=== PATIENT | female | born 1935 | race Caucasian/White ===

== ENCOUNTER 2016-06-25 07:57 | Inpatient (IN) | payer BC, OTHER ==
[2016-05-21 14:15] VITALS: BMI 25.0
--- NOTE | 2016-05-21 15:02 | PAT Medication Instructions ---
Service Date May 21, 2016. Current Home Medication List Atorvastatin (Lipitor), 20 MG PO QPM Dorzolamide HCl (Dorzolamide HCl), 1 DROP OPB BID Lansoprazole (Prevacid), 30 MG PO QAM Lisinopril (Prinivil), 20 MG PO QAM Multivitamin (Multivitamin), 1 TAB PO QAM Oxycodone/Acetaminophen 5MG/325MG (Oxycodone/Acetaminophen 5MG/325MG), 1 TABLET PO Q6H PRN for HEADACHE Probiotic Product (Probiotic), 1 CAP PO QAM Temazepam (Restoril), 2 TAB PO HS Travoprost (Travatan Z), 1 DROP OPB HS [Lysine], 1 TAB PO QAM Medication Instructions For Your Scheduled Surgery - Hold the following medications the morning of surgery: Lisinopril (Prinivil), 20 MG PO QAM [Lysine], 1 TAB PO QAM Multivitamin (Multivitamin), 1 TAB PO QAM Probiotic Product (Probiotic), 1 CAP PO QAM - Take the following medications the morning of surgery with a sip of water: Dorzolamide HCl (Dorzolamide HCl), 1 DROP OPB BID Lansoprazole (Prevacid), 30 MG PO QAM Oxycodone/Acetaminophen 5MG/325MG (Oxycodone/Acetaminophen 5MG/325MG), 1 TABLET PO Q6H PRN for HEADACHE (okay to take up to 4 hours prior to surgery if needed) - Take the following medications as scheduled the night before surgery: Dorzolamide HCl (Dorzolamide HCl), 1 DROP OPB BID Travoprost (Travatan Z), 1 DROP OPB HS Temazepam (Restoril), 2 TAB PO HS Oxycodone/Acetaminophen 5MG/325MG (Oxycodone/Acetaminophen 5MG/325MG), 1 TABLET PO Q6H PRN for HEADACHE Atorvastatin (Lipitor), 20 MG PO QPM If you have any questions please call us at [phone] (Dawn Tabor PA-C ) or [phone] or [phone]
--- NOTE | 2016-05-21 15:36 | DIAGNOSTIC IMAGING REPORT ---
CHEST 2 VIEWS ROUTINE CLINICAL HISTORY: PAT preoperative evaluation COMPARISON STUDY: No previous studies for comparison. FINDINGS: The bones soft tissues and hemidiaphragms are normal. The cardiomediastinal silhouette is normal. The lungs are clear. The pulmonary vasculature is normal. IMPRESSION: Negative chest. Electronically signed by: Jovi Rojas M.D. 05/21/2016 3:34 PM
[2016-05-21 16:05] LABS: BASO % 0.6 %; BASO ABS # 0.04 K/uL (0-0.2); COMPLETE YES; EOS % 1.6 %; HEMATOCRIT 41.3 % (37-47); IG% 0.4 %; LYMPH % 41.2 %; LYMPH ABS # 2.83 K/uL (1.2-3.4); MEAN CELL VOLUME 97.4 fL (80-100); MEAN CORPUSCULAR HEMOGLOBIN 32.1 pg (25-34); MEAN CORPUSCULAR HGB CONC 32.9 g/dl (32-36); MEAN PLATELET VOLUME 9.9 fL (7.4-10.4); MONO % 8.4 %; NEUT % 47.8 %; PLATELET COUNT 251 K/uL (130-400); RED BLOOD COUNT 4.24 M/uL (4.2-5.4); WHITE BLOOD COUNT 6.87 K/uL (4.8-10.8)
[2016-05-21 16:23] LABS: INR 0.9 (0.9-1.1); PARTIAL THROMBOPLASTIN RATIO 0.9; PROTHROMBIN TIME (PATIENT) 9.9 SECONDS (9.0-12.0)
[2016-05-21 16:26] LABS: URINE APPEARANCE CLEAR (CLEAR); URINE BILIRUBIN NEG (NEG); URINE COLOR YELLOW; URINE EPITHELIAL CELL AUTO >30 /lpf (0-5); URINE NITRITE NEG (NEG); URINE PH 5.5 (4.5-7.5); UROBILINOGEN NEG (NEG)
[2016-05-21 16:27] LABS: MANUAL MICROSCOPIC REQUIRED? NO; REVIEW REQ? NO
[2016-05-21 16:49] LABS: BUN/CREATININE RATIO 19.1 (10-20); CREATININE 0.93 mg/dl (0.60-1.20)
[2016-05-21 17:35] LABS: CALCIUM 10.2 mg/dl (8.5-10.1)
--- NOTE | 2016-06-24 16:38 | HISTORY & PHYSICAL EXAMINATION ---
DATE OF ADMISSION: 06/25/2016 CHIEF COMPLAINT: Osteoarthritis of the left shoulder. HISTORY OF PRESENT ILLNESS: Salena is a very pleasant 80-year-old female who fell about 3 months ago sustaining an injury to her left shoulder. We have been treating her conservatively and finally an MRI showed actually bjimzqlm-ub-lmyets arthritis and a questionable small rotator cuff tear. Her biggest complaints are grinding in her shoulder. She failed multiple injections, but was still having a lot of pain and elected to proceed with a total shoulder arthroplasty. PAST MEDICAL HISTORY: Significant for hyperlipidemia, hypertension, glaucoma and GERD. MEDICATIONS: Include lisinopril 20 mg daily, Restoril 15 mg 2 at night, Travatan drops for glaucoma, dorzolamide drops for glaucoma, Lipitor 20 mg daily, Prevacid 30 mg daily, lysine 500 mg daily, daily multivitamin, daily probiotic, and oxycodone as needed for pain. PAST SURGICAL HISTORY: She denies. ALLERGIES: PENICILLIN. FAMILY HISTORY: Noncontributory. SOCIAL HISTORY: She is . She rarely drinks. She does not use any tobacco. She is moderately active. REVIEW OF SYSTEMS: She complains of left shoulder pain. All other pertinent review of systems are negative. PHYSICAL EXAMINATION: GENERAL: She is awake, alert and oriented x3. She is in no apparent distress. She is very pleasant. HEENT: Pupils equal, round and reactive to light. Extraocular motions intact. Oral mucosa is pink and moist. VITAL SIGNS: Regular rate per radial pulse. LUNGS: Cassi symmetrically bilaterally with no audible breath sounds. ABDOMEN: Soft, nontender, nondistended. MUSCULOSKELETAL: On physical examination of the left arm, she has very painful range of motion. She has positive Neer and Thorne impingement signs and pain over the subacromial space, but she has a lot of crepitus with range of motion of her shoulder. Most of her pain is actually located over the anterior glenohumeral joint line. IMAGING: MRI of the shoulder does show oqviunaf-vk-djsjov osteoarthritis with a small far anterior rotator cuff tear. IMPRESSION: Tnxqkhpz-ar-bmvdpa osteoarthritis of the left shoulder. PLAN: We will proceed with a Biomet comprehensive left total shoulder arthroplasty. Postoperatively, she will be placed in an arm sling and kept overnight at the hospital for postoperative medical management.
[2016-06-25] VITALS (9 sets, daily range): BP systolic 120–198; BP diastolic 52–76; PULSE 60–70; TEMP 36.3–36.5; O2SAT 95–100; Ht 157.5 cm; Wt 63.2 kg
[~2016-06-25] VITALS: Ht 157.5 cm; Wt 63.2 kg
[~2016-06-25 07:57] MED LIST: ACETAMINOPHEN 500 MG TAB PO SCH; ATOR-22 PO; BUPIVACAINE 0.5 % 5 MG/1 ML PF 10ML VIAL ONE; DEXAMETHASONE SOD INJ 4 MG/ML VIAL ONE; FAMOTIDINE 20 MG TAB PO SCH; GABAPENTIN 300 MG CAP PO SCH; LACTATED RINGER'S 1000ML IV SCH; LANS30CA63 PO; LISI20TA3 PO; LYSINE PO; MISCCAP80 PO; MULT-506 PO; OXYC-643 PO; ROPIVACAINE 5MG/ML 30 ML 150 MG, BUPIVACAINE/EPINEPHR 0.5% MPF 30 ML, KETOROLAC TROMETH... INFIL SCH; TEMA15CA4 PO; TRAV0.00 OPB; TRSOPS2 OPB; VANCOMYCIN INJ 950 MG in SODIUM CHLORIDE 0.9% 250ML 250 ML IV SCH
[2016-06-25] MEDS: TRANEXAMIC ACID INJ 1,000 MG in SODIUM CHLORIDE 0.9% 100ML 100 ML IV SCH ×2 (09:02→14:08)
[2016-06-25] MEDS ORDERED: MIDAZOLAM HCL 1 MG/ML 2ML VIAL ONE (09:32)
[2016-06-25] MEDS ORDERED: FENTANYL CITRATE INJ 50 MCG/1 ML 2 ML VIAL ONE (09:32)
[2016-06-25] MEDS ORDERED: LIDOCAINE HCL 2% 2 ML VIAL (20MG/ML) ONE (09:32)
[2016-06-25] MEDS ORDERED: GLYCOPYRROLATE INJ 0.2 MG/ML VIAL ONE ×2 (09:32→12:20)
[2016-06-25] MEDS ORDERED: PROPOFOL IV EMULSION 10 MG/ML 20 ML VIAL IV ONE (09:32)
[2016-06-25] MEDS ORDERED: DEXAMETHASONE SOD INJ 4 MG/ML VIAL ONE (09:32)
[2016-06-25] MEDS ORDERED: NEOSTIGMINE METHYLSULFATE 5 MG/5 ML SYR ONE (09:32)
[2016-06-25] MEDS ORDERED: ONDANSETRON INJ 2 MG/ML 2 ML VIAL ONE ×2 (09:32→12:45)
[2016-06-25] MEDS ORDERED: LACTATED RINGER'S 1000ML 1,000 ML IV PRN (10:20)
--- NOTE | 2016-06-25 10:23 | History & Physical Bridge Note ---
H&P Re-Evaluation Bridge Note: I have examined the patient, reviewed the History & Physical and in the interval since the performance of the History & Physical I have noted the following changes of clinical significance: No changes noted
[2016-06-25] MEDS ORDERED: ONDANSETRON INJ 2 MG/ML 2 ML VIAL IV PRN ×2 (10:30→12:45)
[2016-06-25] MEDS ORDERED: FENTANYL CITRATE INJ 50 MCG/1 ML 2 ML VIAL IV PRN (10:30)
[2016-06-25] MEDS ORDERED: ORTHO JOINT ANESTHETIC ONE (10:46)
[2016-06-25] MEDS ORDERED: EpHEDrine SULFATE INJ 50 MG/ML AMP ONE (11:44)
[2016-06-25] MEDS ORDERED: PHENYLEPHRINE HCL INJ 10 MG/ML VIAL ONE (11:44)
[2016-06-25] MEDS ORDERED: BACITRACIN 50000 UNIT VIAL IR ONE (12:04)
--- NOTE | 2016-06-25 12:35 | [facility] Post Operative Brief Note ---
Immediate Operative Summary Operative Date Jun 25, 2016. Pre-Operative Diagnosis : Gjdrxiyo-xw-ynmujc osteoarthritis of the left shoulder Post-Operative Diagnosis : Fikiwqol-dd-rxdglt osteoarthritis of the left shoulder with rotator cuff tear Procedure(s) Performed Reverse Left Total Shoulder Arthroplasty Surgeon Dr. Leonardo Brewster Dethistler Operator Surgeon(s) Holland Lazo PA-C Estimated Blood Loss 250 mL Findings as above Specimens A. Humeral Head Complication(s) None Disposition Recovery Room / PACU
[2016-06-25] MEDS ORDERED: METOCLOPRAMIDE HCL INJ 5 MG/ML 2 ML VIAL IV PRN (12:45)
[2016-06-25] MEDS ORDERED: OXYCODONE HCL IR 5 MG TAB (IMMEDIATE RELEASE) PO PRN (12:45)
[2016-06-25] MEDS ORDERED: BISACODYL 10 MG SUPP PR PRN (12:45)
[2016-06-25] MEDS ORDERED: MAGNESIUM HYDROXIDE SUSP 30 ML UDC PO PRN (12:45)
[2016-06-25] MEDS ORDERED: NALOXONE HCL 0.4 MG/1 ML VIAL/CARP IV PRN (12:45)
[2016-06-25] MEDS ORDERED: SOD PHOSPHATE/SOD BIPHOSPHATE ENEMA 132 ML BTL PR PRN (12:45)
[2016-06-25] MEDS ORDERED: MoRPHine SULFATE 2 MG/ML CARP IV PRN (12:45)
--- NOTE | 2016-06-25 13:05 | Anesthesiology Progress Note ---
Anesthesia Post Op Note Date & Time Jun 25, 2016 at 13:04 Vital Signs Pain Intensity: 0 Vital Signs Past 12 Hours Date Time Temp Pulse Resp B/P Pulse Ox O2 Delivery O2 Flow Rate FiO2 06/25/16 12:55 73 18 149/54 100 Mask 10 06/25/16 12:51 36.0 80 18 157/81 100 Mask 10 06/25/16 08:35 36.5 67 18 198/73 97 Room Air Notes Mental Status: alert / awake / arousable, participated in evaluation Pt Amnestic to Procedure: Yes Nausea / Vomiting: adequately controlled Pain: adequately controlled Airway Patency, RR, SpO2: stable & adequate BP & HR: stable & adequate Hydration State: stable & adequate Anesthetic Complications: no major complications apparent Pt drowsy but responsive and doing well. No pain.
--- NOTE | 2016-06-25 13:14 | OPERATIVE REPORT ---
DATE OF OPERATION: 06/25/2016 PREOPERATIVE DIAGNOSIS: Primary osteoarthritis of the left shoulder with possible small rotator cuff tear. POSTOPERATIVE DIAGNOSIS: Advanced osteoarthritis of left shoulder with large left rotator cuff tear. PROCEDURE: Left reverse total shoulder arthroplasty. SURGEON: Dr. Leonardo Brewster. ORACLE ADF DEVELOPER: Holland Lazo PA-C, whose assistance was necessary for positioning the arm and helping with instrumentation. ANESTHESIA: General with a left interscalene nerve block. COMPLICATIONS: None. CONDITION: Stable to PACU. IMPLANTS USED: I used a Biomet comprehensive reverse left total shoulder arthroplasty with a size 25 mm mini baseplate, a 35 mm central screw, 2 peripheral locking screws, a 36 mm eccentric glenosphere, a size 9 press-fit humeral stem, a standard humeral tray and a standard humeral bearing. No cement was used during the case. INDICATIONS: Salena is a pleasant 80-year-old female who presented to my office with chronic left shoulder pain. She says she did have a lot of grinding in her shoulder. X-rays did not look too bad but MRI showed advanced arthritis and a questionable small cuff tear. She elected to undergo a total shoulder arthroplasty with possible reverse. She understood the risks, benefits, alternatives to the procedure. PROCEDURE IN DETAIL: On 06/25/2016, she arrived at [facility] for the above procedure. She was seen in the preoperative holding area and the operative extremity was identified and signed. She was then given a preoperative antibiotic and a left interscalene nerve block. She was taken back to the operating room, laid on the table in supine position and put under general anesthesia. She was then put into the beach chair position. The left shoulder was prepped and draped in sterile fashion. Time-out was done and the patient and operative extremity was properly identified. A deltopectoral approach was used. Dissection was taken down through the fascia and the anterior shoulder was exposed. The long head of the biceps tendon was tenodesed to the upper border of the pec major and the subscapularis was tenotomized with a centimeter of cuff tissue remaining. There was a large rotator cuff tear involving the majority of the supraspinatus. With blunt dissection, I was easily able to tear the rotator cuff much larger. It was very poor tissue quality. Given the poor quality of the supraspinatus and the tear, I felt she would best be treated with reverse shoulder arthroplasty. The humeral head was then exposed. Sequential reaming up to a size 9 reamer was done. Off that reamer, a proximal humeral resection guide was placed and the humerus was resected at 135 degrees of inclination and 20 degrees of retroversion. The glenoid was then exposed. Time was spent doing a complete circumferential capsular and labral release. The ponUp signature guide was snapped on to the anterior glenoid and a guide pin was placed for a reverse total shoulder arthroplasty hole. The 25 mm mini base plate was then reamed and the final baseplate was impacted into place. A 35 mm x 6.5 mm central screw was placed, followed by a superior and inferior locking screw. This gave excellent fixation. A 36 mm eccentric glenosphere was then impacted into place. The proximal humerus was then exposed. Sequential broaching up to a size 9 broach was done. A standard humeral trial was placed. The shoulder was reduced, brought through a full range of motion and felt to be stable. The broach was removed. The final size 9 humeral stem was impacted into place. The humeral bearing was snapped onto the humeral tray and the ring lock mechanism was engaged. The humeral tray was then placed onto the humeral stem and the shoulder was reduced. The entire joint was then irrigated with 3 liters of normal saline solution with bacitracin. Surrounding soft tissues were then injected with 100 mL of an orthopedic pain control cocktail. The subscapularis was then tenodesed back to the lesser tuberosity with transosseous FiberWire sutures and uynb-os-jkgm sutures. A drain was placed. Skin was closed with 2-0 Vicryl and a 3-0 V-Loc suture. A Prineo dressing was placed. She was then placed in a regular arm sling, extubated, transferred to a [facility] and taken to the postanesthesia care unit in stable condition. She tolerated the procedure well. I attest to the content of the Intraoperative Record and any orders documented therein. Any exceptio ns are noted below.
--- NOTE | 2016-06-25 13:19 | DIAGNOSTIC IMAGING REPORT ---
LEFT SHOULDER MIN 2 VIEWS ROUTINE CLINICAL HISTORY: Postop examination COMPARISON: None. DISCUSSION: There are postsurgical changes of a reverse total left shoulder arthroplasty. There is an overlying surgical drain. No dislocation is visualized. There are left basilar atelectatic changes. IMPRESSION: Postsurgical changes of a reverse total left shoulder arthroplasty. No dislocation. Electronically signed by: Moisés Hui M.D. 06/25/2016 1:17 PM Dictated Date/Time: 06/25/2016 1:17 PM
[2016-06-25] MEDS ORDERED: D5W AND 1/2NSS + 20MEQ KCL 1,000 ML IV SCH (15:00)
[2016-06-25] MEDS ORDERED: KETOROLAC TROMETHAMINE 30 MG/ML VIAL IV. SCH (16:00)
[2016-06-25] MEDS ORDERED: NURSING VERBAL MED ORDER ONE (17:30)
[2016-06-25] MEDS: KETOROLAC TROMETHAMINE 15 MG/ML VIAL IV. SCH ×2 (18:54→21:03)
[2016-06-25] MEDS: ACETAMINOPHEN IV 1,000 MG in EMPTY BAG 0 ML IV SCH ×2 (18:55→21:32)
[2016-06-25] MEDS: DORZOLAMIDE HCL 2% OPH SOLN 10 ML BTL OPB SCH ×2 (21:00→21:03)
[2016-06-25] MEDS ORDERED: ATORVASTATIN 20 MG TAB PO SCH (21:00)
[2016-06-25] MEDS ORDERED: TRAVOPROST Z 0.004% OPH SOLN 2.5 ML BTL OPB SCH (21:00)
[2016-06-25] MEDS ORDERED: SENNA 8.6 MG TAB PO SCH (21:00)
[2016-06-25] MEDS: DOCUSATE SODIUM 100 MG CAP PO SCH (21:04)
[2016-06-25] MEDS: TEMAZEPAM 15 MG CAP PO SCH ×2 (21:06→21:31)
[2016-06-25] MEDS ORDERED: VANCOMYCIN INJ 950 MG in SODIUM CHLORIDE 0.9% 250ML 250 ML IV SCH (23:00)
[2016-06-26] MEDS: KETOROLAC TROMETHAMINE 15 MG/ML VIAL IV. SCH ×2 (02:42→09:27)
[2016-06-26 04:16] VITALS: BP 122/74; PULSE 76; TEMP 36.2; O2SAT 95
[2016-06-26] MEDS: ACETAMINOPHEN IV 1,000 MG in EMPTY BAG 0 ML IV SCH (05:46)
[2016-06-26 06:13] LABS: HEMATOCRIT 33.5 % (37-47); MEAN CELL VOLUME 94.4 fL (80-100); MEAN CORPUSCULAR HGB CONC 32.8 g/dl (32-36); MEAN PLATELET VOLUME 10.3 fL (7.4-10.4); PLATELET COUNT 188 K/uL (130-400); RED BLOOD COUNT 3.55 M/uL (4.2-5.4); WHITE BLOOD COUNT 13.85 K/uL (4.8-10.8)
[2016-06-26 06:46] LABS: BUN/CREATININE RATIO 16.7 (10-20); CREATININE 0.94 mg/dl (0.60-1.20)
[2016-06-26 08:23] VITALS: BP 130/88; PULSE 70; TEMP 36.5; O2SAT 94
[2016-06-26] MEDS ORDERED: LISINOPRIL 20 MG TAB PO SCH (09:00)
[2016-06-26] MEDS ORDERED: MULTIVITAMIN TAB PO SCH ×2 (09:00)
[2016-06-26] MEDS ORDERED: PANTOprazole SOD 40 MG TAB PO SCH (09:00)
[2016-06-26] MEDS ORDERED: OXYC-643 PO (09:11)
--- NOTE | 2016-06-26 09:12 | Discharge Instructions ---
Discharge Instructions Admission Reason for Admission: Left Shoulder Pain, Inflammation Of Rotator Cuff T Discharge Discharge Diagnosis / Problem: Arthritis Left Shoulder Discharge Goals Goal(s): Decrease discomfort, Improve function Activity Recommendations Activity Limitations: as noted below Shower/Bathe: may shower/bathe in 3 days sling for 3 weeks . Instructions / Follow-Up Instructions / Follow-Up may shower on Tuesday, leave glue mesh dressing intact until follow up Current Hospital Diet Patient's current hospital diet: Regular Diet Discharge Diet Recommended Diet: Regular Diet Procedures Procedures Performed: Reverse Left Total Shoulder Arthroplasty Pending Studies Studies pending at discharge: no Medical Emergencies . Who to Call and When: Medical Emergencies: If at any time you feel your situation is an emergency, please call 911 immediately. . Non-Emergent Contact Non-Emergency issues call your: Surgeon Call Non-Emergent contact if: wound has increased drainage, wound has increased redness . "Provider Documentation" section prepared by Leonardo Brewster. VTE Core Measure Inpt VTE Proph given/why not?: Treatment not indicated
[2016-06-26] MEDS: DORZOLAMIDE HCL 2% OPH SOLN 10 ML BTL OPB SCH (09:27)
[2016-06-26] MEDS: DOCUSATE SODIUM 100 MG CAP PO SCH (09:28)
--- NOTE | 2016-06-26 09:41 | PROGRESS NOTE ---
DATE: 06/26/2016 CHIEF COMPLAINT: Status post left reverse shoulder arthroplasty postop day #1. PROGRESS: Salena was seen and examined at bedside today. Overall, she is doing very well. She really does not have much pain in the shoulder. She has been urinating a lot overnight but that is her only complaint. PHYSICAL EXAMINATION: LEFT SHOULDER: The dressing is clean and dry, and the drain is to suction. She is wearing her sling as instructed. Her radial, median and ulnar nerves are checked and intact at her wrist. Her axillary nerve was not checked yet. LABORATORY DATA: She has an H\T\H of 11.0 and 33.5. Her creatinine is stable at 0.94. Her vital signs are all stable on room air. She is voiding on her own. X-rays postoperatively of the left shoulder show the prosthesis to be in anatomical alignment without any evidence of fracture, dislocation or loosening. IMPRESSION: Status post left reverse total shoulder arthroplasty postop day #1. PLAN: At this point, she is doing very well. Therapy will see her today to do hand, wrist, elbow and pendulum exercises. The nursing staff will change the dressing and pull the drain, and she will be discharged to home.
--- NOTE | 2016-06-26 10:08 | DISCHARGE SUMMARY ---
DISCHARGE DIAGNOSIS: Osteoarthritis of the left shoulder with large cuff tear. PROCEDURE: Left reverse total shoulder arthroplasty on 06/25/[address] Leonardo Brewster. DISCHARGE INSTRUCTIONS: 1. Percocet 5/325 as needed for pain. 2. Lipitor 20 mg daily. 3. Dorzolamide drops 1 drop each eye twice a day. 4. Prevacid 30 mg daily. 5. Prinivil 20 mg daily. 6. Daily multivitamin. 7. Restoril 2 tabs at night. 8. Travatan Z 1 drop each eye at night. 9. Left arm sling for 3 weeks. 10. Follow up with Dr. Brewster in 2 weeks. 11. Call the office of Dr. Brewster with any questions or concerns. HOSPITAL COURSE: Salena is a pleasant 80-year-old female who presented to my office with chronic left shoulder pain. It had become quite acute over the past few months. MRI showed a cuff tear and osteoarthritis of the shoulder. She elected to undergo a total shoulder arthroplasty. On 06/25/2016, she arrived at [facility] and underwent a reverse left shoulder replacement without complications. She had a general anesthetic and left interscalene nerve block. Postoperatively, she was placed in an arm sling and discharged to general orthopedic floor. Her hospital course was uneventful. On postop day #1, her H\T\H was stable at 11.0 and 33.5. Her creatinine was stable at 0.94. She was not having much pain. She was seen by physical therapy and able to do hand, wrist, elbow and pendulum exercises, and the nursing staff changed the dressing, pulled the drain, and she was subsequently discharged to home with the above instructions.
[2016-06-26 11:42] VITALS: BP 130/88; PULSE 70; TEMP 36.5; O2SAT 94
[2016-06-26 11:48] VITALS: BP 132/85; PULSE 69; TEMP 36.6; O2SAT 96
== END 2016-06-26 12:30 | disposition home or self-care (01) | DRG 483 ==
LOC: ENRESERVTM → ENRESERVDT → C.ACU 07:57 → C.3E 08:35
PROVIDERS: ADMIT Orthopaedic Surgery; ATTEND Orthopaedic Surgery
PROC: 0RRK00Z Replacement of Left Shoulder Joint with Reverse Ball and Socket Synthetic Substitute, Open Approach (ICD-10-PCS; principal; 2016-06-25 10:40)
DX: M19.012 Primary osteoarthritis, left shoulder (principal); S46.012A Strain of muscle(s) and tendon(s) of the rotator cuff of left shoulder, initial encounter; W19.XXXA Unspecified fall, initial encounter; I10 Essential (primary) hypertension; E78.5 Hyperlipidemia, unspecified; K21.9 Gastro-esophageal reflux disease without esophagitis; H40.9 Unspecified glaucoma; Z79.899 Other long term (current) drug therapy; Z88.0 Allergy status to penicillin

== ENCOUNTER 2017-01-15 14:06 | Emergency (ER) | payer BC ==
[~2017-01-15] VITALS: Ht 157.5 cm; Wt 62.6 kg
[~2017-01-15 14:06] MED LIST changes: -ACETAMINOPHEN 500 MG TAB PO SCH; -BUPIVACAINE 0.5 % 5 MG/1 ML PF 10ML VIAL ONE; -DEXAMETHASONE SOD INJ 4 MG/ML VIAL ONE; -FAMOTIDINE 20 MG TAB PO SCH; -GABAPENTIN 300 MG CAP PO SCH; -LACTATED RINGER'S 1000ML IV SCH; -ROPIVACAINE 5MG/ML 30 ML 150 MG, BUPIVACAINE/EPINEPHR 0.5% MPF 30 ML, KETOROLAC TROMETH... INFIL SCH; -VANCOMYCIN INJ 950 MG in SODIUM CHLORIDE 0.9% 250ML 250 ML IV SCH
[2017-01-15 14:10] VITALS: TEMP 36.7; Ht 157.5 cm; Wt 62.6 kg
[2017-01-15] MEDS ORDERED: LYSI100010 PO (15:32)
[2017-01-15] MEDS ORDERED: ACETAMINOPHEN 500 MG TAB PO STA (15:39)
--- NOTE | 2017-01-15 16:13 | EMERGENCY ROOM VISIT NOTE ---
ED Visit Note First contact with patient: 15:22 CHIEF COMPLAINT: Runny nose, sore throat, sneezing 2 days HISTORY OF PRESENT ILLNESS: This 81-year-old female patient presents to the emergency department cleaning of runny nose, sore throat, sneezing, headache, congestion, and itchy watery eyes 2 days. The patient states she initially noticed a watery, thin discharge coming from her eyes and nose yesterday. States today she has been sneezing and it has been difficult for her to swallow due to her sore throat. The patient does report occasional headache and sinus and chest congestion. She denies wheezing. The patient does report chills, however denies fever. The patient did take 2 Benadryl tablets last night, did not notice improvement in her symptoms. The patient denies abdominal pain, nausea, vomiting, otalgia, neck pain, purulent drainage, coughing up sputum or blood, or other associated symptoms. The patient has not taken any cold medication. REVIEW OF SYSTEMS: A 10-system review of systems was performed with positives and pertinent negatives listed in the history of present illness. All other systems were reviewed and are negative. ALLERGIES: Naproxen, simvastatin, penicillin MEDICATIONS: Please see list PMH: GERD, hypertension, restless legs, hyperlipidemia SOCIAL HISTORY: This patient lives locally with her family. She denies drug, alcohol, tobacco use. PHYSICAL EXAM: VITALS: Vitals are noted on the nurse's note and reviewed by myself. Vital signs stable. GENERAL: This is an 81-year-old female, in no acute distress, nondiaphoretic, well-developed well-nourished. SKIN: The skin was without rashes, erythema, edema, or bruising. There is no tenting of the skin. Capillary reflex less than 2 seconds. HEAD: Normocephalic atraumatic. EARS: External auditory canals clear, tympanic membranes pearly torres without erythema or effusion bilaterally. EYES: Pupils equal round and reactive to light and accommodation. Conjunctivae without injection, sclerae without icterus. Extraocular movements intact. NOSE: Patent, turbinates pale, boggy, with a blue-torres mucosa. No sinus tenderness. MOUTH: Mucous membranes moist. Tonsils are not enlarged. Pharynx without erythema or exudate. Uvula midline. Airway patent. Tongue does not deviate. NECK: Supple without nuchal rigidity. No lymphadenopathy. No thyromegaly. Cervical spine is nontender. No JVD. HEART: Regular rate and rhythm without murmurs gallops or rubs. LUNGS: Clear to auscultation bilaterally without wheezes, rales or rhonchi. No dullness to percussion. No retractions or accessory muscle use. ABDOMEN: Positive bowel sounds x 4. Normal tympanic percussion. Soft, nontender, without masses or organomegaly. Valiente sign negative. No guarding or rebound tenderness. MUSCULOSKELETAL: No muscle atrophy, erythema, or edema noted. Full range of motion without joint tenderness in all extremities. No tenderness to palpation. Normal gait. Strength 5/5 throughout. NEURO: Patient was alert and oriented to person place and time. Normal sensation to light and sharp touch. Deep tendon reflexes 2+ throughout. No focal neurological deficits. EMERGENCY DEPARTMENT COURSE: She was seen and evaluated as above. I discussed the patient pertinent examination findings, and to discuss with her home remedies for allergic rhinitis and cold-like symptoms. The patient was discharged home in good condition. DIFFERENTIAL DIAGNOSIS: Upper respiratory infection, acute sinusitis, allergic rhinitis, acute pharyngitis, strep pharyngitis, acute conjunctivitis, acute bronchitis, pneumonia, otitis media, otitis externa, and others. DIAGNOSIS: Allergic Rhinitis DISCHARGE INSTRUCTIONS & TREATMENT: You may take OTC Zyrtec 10mg daily at bedtime for your symptoms. Please use a cool mist humidifier in your bedroom at night. You may take Tylenol OTC for headache. Please do not exceed 1000mg per dose or 3000mg per day. You may use a mixture of liquid Benadryl and liquid Maalox, equal parts of each , and gargle or spray in the back of her throat to help relieve sore throat. You may drink hot tea with honey and lemon to help relieve your sore throat. Please follow-up with your PCP in 2 days for further evaluation and management of your symptoms. Return to the emergency department for worsening symptoms including fever, chills, nausea, vomiting, aches, chest pains, dyspnea, wheezing, or other concerning symptoms. Problem List Medical Problems: (1) Chronic Liver Dis Nec Status: Chronic (2) Dehydration Status: Resolved (3) Esophageal Reflux Status: Chronic (4) Fall at home Status: Resolved (5) Hypercholesteremia Status: Chronic (6) Hypertension Status: Chronic (7) Left ankle injury Status: Resolved (8) Left knee injury Status: Resolved (9) Right ankle injury Status: Resolved (10) Right knee injury Status: Resolved Surgical Problems: (1) History of tonsillectomy Status: Resolved (2) S/P appendectomy Status: Resolved Current/Historical Medications Scheduled Atorvastatin (Lipitor), 20 MG PO QPM Lisinopril (Prinivil), 20 MG PO QAM Lysine Hcl (Lysine), 1 TAB PO DAILY Multivitamin (Multivitamin), 1 TAB PO QAM Temazepam (Restoril), 2 TAB PO HS Travoprost (Travatan Z), 1 DROP OPB HS Allergies Coded Allergies: Naproxen (Unverified Allergy, Unknown, UNKNOWN REACTION, 06/25/16) PER PCP RECORDS Penicillins (Verified Allergy, Unknown, RASH, 06/25/16) Simvastatin (Unverified Allergy, Unknown, UNKNOWN REACTION, 06/25/16) PER PCP RECORDS Vital Signs Date Time Temp Pulse Resp B/P (MAP) Pulse Ox O2 Delivery O2 Flow Rate FiO2 01/15/17 16:21 92 20 156/96 96 01/15/17 14:10 36.7 87 20 169/77 97 Room Air Medications Administered Medications (Trade) Dose Ordered Sig/Zain Route Start Time Stop Time Status Last Admin Dose Admin Acetaminophen (Tylenol Tab) 1,000 mg NOW STAT PO 01/15/17 15:39 01/15/17 15:40 DC 01/15/17 15:45 1,000 MG Departure Information Impression Primary Impression: Allergic rhinitis Dispostion Home / Self-Care Condition GOOD Referrals Nico Naranjo M.D. (PCP) Patient Instructions ED Rhinitis Allergic Ch, My [facility] Additional Instructions You may take OTC Zyrtec 10mg daily at bedtime for your symptoms. Please use a cool mist humidifier in your bedroom at night. You may take Tylenol OTC for headache. Please do not exceed 1000mg per dose or 3000mg per day. You may use a mixture of liquid Benadryl and liquid Maalox, equal parts of each , and gargle or spray in the back of her throat to help relieve sore throat. You may drink hot tea with honey and lemon to help relieve your sore throat. Please follow-up with your PCP in 2 days for further evaluation and management of your symptoms. Return to the emergency department for worsening symptoms including fever, chills, nausea, vomiting, aches, chest pains, dyspnea, wheezing, or other concerning symptoms. Problem Qualifiers Primary Impression: Allergic rhinitis Chronicity: acute Allergic rhinitis trigger: unspecified Allergic rhinitis seasonality: unspecified seasonality Qualified Codes: J30.9 - Allergic rhinitis, unspecified
[2017-01-15 16:21] VITALS: BP 156/96; PULSE 92; O2SAT 96
== END 2017-01-15 16:23 | disposition home or self-care (01) ==
LOC: C.EDB 14:08 → C.EDD 16:23
DX: J30.9 Allergic rhinitis, unspecified (principal); K21.9 Gastro-esophageal reflux disease without esophagitis; I10 Essential (primary) hypertension; G25.81 Restless legs syndrome; E78.5 Hyperlipidemia, unspecified; K76.9 Liver disease, unspecified; E78.00 Pure hypercholesterolemia, unspecified; Z79.899 Other long term (current) drug therapy

== ENCOUNTER → 2017-01-21 | Outpatient (CLI) | payer BC ==
[~2017-01-21] MED LIST changes: -LANS30CA63 PO; +LYSI100010 PO; -LYSINE PO; -MISCCAP80 PO; -OXYC-643 PO; -TRSOPS2 OPB
--- NOTE | 2017-01-24 12:28 | MAMMOGRAPHY REPORT ---
BILATERAL DIGITAL SCREENING MAMMOGRAM WITH CAD: 01/21/2017 TECHNIQUE: Current study was also evaluated with a Computer Aided Detection (CAD) system. Bilateral CC and MLO views were obtained. COMPARISON: Comparison is made to exams dated: 12/25/2013 mammogram, 01/07/2015 mammogram, 01/12/2016 ma mmogram, 12/14/2012 mammogram, 12/14/2011 mammogram, and 12/10/2010 mammogram - [facility] nter. BREAST COMPOSITION: There are scattered areas of fibroglandular density in both breasts. FINDINGS: No suspicious masses, calcifications, or areas of architectural distortion are noted in ei ther breast. There has been no significant interval change compared to prior exams. Biopsy marker cl ips are again noted bilaterally. Scattered bilateral benign-appearing calcifications are not signifi cantly changed. Bilateral asymmetries are stable. IMPRESSION: ACR BI-RADS CATEGORY 2: BENIGN There is no mammographic evidence of malignancy. A 1 year screening mammogram is recommended. The pa tient will receive written notification of the results. Approximately 10% of breast cancers are not detected with mammography. A negative mammographic report should not delay biopsy if a clinically suggestive mass is present. Graciela Cardona M.D. /:01/21/2017 16:08:41 [employer] Officer: Aida HASKINS(Tiffany)(M), [facility] letter sent: Normal 1/2 BI-RADS Code: ACR BI-RADS Category 2: Benign
== END | disposition home or self-care (01) ==
LOC: C.MAMM 10:15
PROVIDERS: ATTEND Internal Medicine
DX: Z12.31 Encounter for screening mammogram for malignant neoplasm of breast (principal)

== ENCOUNTER → 2017-03-15 | Outpatient (CLI) | payer BC ==
[2017-03-15 12:33] LABS: HEMATOCRIT 41.2 % (37-47); MEAN CELL VOLUME 99.8 fL (80-100); MEAN CORPUSCULAR HEMOGLOBIN 32.7 pg (25-34); MEAN CORPUSCULAR HGB CONC 32.8 g/dl (32-36); MEAN PLATELET VOLUME 10.3 fL (7.4-10.4); PLATELET COUNT 244 K/uL (130-400); RED BLOOD COUNT 4.13 M/uL (4.2-5.4); WHITE BLOOD COUNT 7.67 K/uL (4.8-10.8)
[2017-03-15 12:55] LABS: ALT/SGPT 33 U/L (12-78); AST/SGOT 23 U/L (15-37); BLOOD UREA NITROGEN 20 mg/dl (7-18); BUN/CREATININE RATIO 22.1 (10-20); CALCIUM 9.5 mg/dl (8.5-10.1); CARBON DIOXIDE 29 mmol/L (21-32); CHLORIDE 105 mmol/L (98-107); CREATININE 0.92 mg/dl (0.60-1.20); GLUCOSE 81 mg/dl (70-99); SODIUM 142 mmol/L (136-145)
[2017-03-15 12:57] LABS: ALB/GLOB RATIO 1.1 (0.9-2); ALKALINE PHOSPHATASE 155 U/L (45-117); CHOLESTEROL 172 mg/dl (0-200); CHOLESTEROL/HDL RATIO 3.1; HDL CHOLESTEROL 56 mg/dl; LDL CHOLESTEROL CALCULATED 63 mg/dl; TRIGLYCERIDES 263 mg/dl (0-150); VERY LOW DENSITY LIPOPROT CALC 53 mg/dl
[2017-03-15 12:57] LABS: URINE APPEARANCE CLEAR (CLEAR); URINE BILIRUBIN NEG (NEG); URINE COLOR YELLOW; URINE EPITHELIAL CELL AUTO >30 /lpf (0-5); URINE NITRITE NEG (NEG); URINE PH 6.5 (4.5-7.5); URINE SPECIFIC GRAVITY 1.017 (1.000-1.030); UROBILINOGEN NEG (NEG); ZZUR CULT IF INDIC CLEAN CATCH NO
[2017-03-15 13:05] LABS: BASO % 0.7 %; BASO ABS # 0.05 K/uL (0-0.2); COMPLETE YES; EOS % 1.6 %; IG% 0.4 %; LYMPH % 51.6 %; LYMPH ABS # 3.96 K/uL (1.2-3.4); MONO % 8.1 %; NEUT % 37.6 %
[2017-03-15 13:06] LABS: MANUAL MICROSCOPIC REQUIRED? NO; REVIEW REQ? YES
[2017-03-15 13:39] LABS: URINE MUCUS PRESENT (NONE PRSENT)
== END | disposition home or self-care (01) ==
LOC: C.LABBFT 08:36
PROVIDERS: ATTEND Internal Medicine
DX: I10 Essential (primary) hypertension (principal); E78.00 Pure hypercholesterolemia, unspecified; M85.80 Other specified disorders of bone density and structure, unspecified site

== ENCOUNTER → 2018-01-05 | Outpatient (CLI) | payer BC ==
--- NOTE | 2018-01-05 12:36 | DIAGNOSTIC IMAGING REPORT ---
CHEST 2 VIEWS ROUTINE HISTORY: Cough. COMPARISON: Chest 05/21/2016. FINDINGS: Interval placement of a left total shoulder arthroplasty. No pleural effusions. No pneumothorax. The lungs are clear. The heart is normal in size. Calcified aortic arch is again noted. IMPRESSION: No acute process. Electronically signed by: Alexi Padilla M.D. 01/05/2018 12:35 PM Dictated Date/Time: 01/05/2018 12:33 PM
== END | disposition home or self-care (01) ==
LOC: C.RAD1850 12:18
PROVIDERS: ATTEND Nurse Practitioner
DX: R05 Cough (principal)

== ENCOUNTER → 2018-01-23 | Outpatient (CLI) | payer BC ==
[~2018-01-23] MED LIST changes: +ACYC-57 PO; +CETI10TA84 PO; +DILT120C68 PO; +DORZ2SOL19 OPB; +FLUT0.15 NAE; +LANS30CA12 PO; +LISI-725 PO; +LYSI1TAB11 PO; +OXYC-90 PO; +SACC250C11 PO; +TRAZ50TA35 PO
--- NOTE | 2018-01-23 15:12 | MAMMOGRAPHY REPORT ---
BILATERAL DIGITAL SCREENING MAMMOGRAM TOMOSYNTHESIS WITH CAD: 01/23/2018 CLINICAL HISTORY: Routine screening. Patient has no complaints. TECHNIQUE: The study was acquired using full field digital technology and interpreted from soft copy. Breast tomosynthesis in addition to standard 2D mammography was performed. Current study was also ev aluated with a Computer Aided Detection (CAD) system. COMPARISON: Comparison is made to exams dated: 01/21/2017 mammogram, 01/12/2016 mammogram, 01/07/2015 ma mmogram, 12/25/2013 mammogram, 12/14/2012 mammogram, and 12/14/2011 mammogram - [facility] ter. BREAST COMPOSITION: There are scattered areas of fibroglandular density in both breasts. FINDINGS: No developing mass, architectural distortion or cluster of suspicious microcalcifications i s seen in either breast. There are stable ribbon-shaped biopsy marker clips in each breast. A few scattered benign coarse imer cifications. Stable asymmetries in the lateral right breast. Minimal vascular calcification. IMPRESSION: ACR BI-RADS CATEGORY 2: BENIGN There is no mammographic evidence of malignancy. A 1 year screening mammogram is recommended.( 019) The patient will receive written notification of the results. Some breast cancers are not detected with mammography. A negative mammographic report should not tae y biopsy if a clinically suggestive mass is present. Sushila Holland M.D. ay/:01/23/2018 12:45:03 Compensation And Benefits Advisor: RT Damaso(Tiffany)(M), [facility] letter sent: Normal 1/2 BI-RADS Code: ACR BI-RADS Category 2: Benign
== END | disposition home or self-care (01) ==
LOC: C.MAMM 09:54
PROVIDERS: ATTEND Internal Medicine
DX: Z12.31 Encounter for screening mammogram for malignant neoplasm of breast (principal)

== ENCOUNTER → 2018-01-26 | Outpatient (CLI) | payer BC ==
--- NOTE | 2018-01-26 09:22 | DIAGNOSTIC IMAGING REPORT ---
ABDOMEN LIMITED (US) CLINICAL HISTORY: R10.32 Left groin pain attention left lower quadrant/groin areaUL COMPARISON STUDY: Abdomen and pelvis CT 05/31/2014. FINDINGS: Real-time sonographic imaging of the left inguinal region was performed. There is small reducible fat-containing left inguinal hernia. No masses or fluid collections identified within the left groin. IMPRESSION: Small reducible fat-containing left inguinal hernia. Electronically signed by: Alexi Padilla M.D. 01/26/2018 9:21 AM Dictated Date/Time: 01/26/2018 9:20 AM
== END | disposition home or self-care (01) ==
LOC: C.ULTR 08:29
PROVIDERS: ATTEND Internal Medicine
DX: R10.32 Left lower quadrant pain (principal)

== ENCOUNTER → 2018-02-02 | Outpatient (CLI) | payer BC ==
[~2018-02-02] MED LIST changes: -LISI20TA3 PO; -LYSI100010 PO; -TEMA15CA4 PO
[2018-02-02 10:32] LABS: BASO % 0.5 %; BASO ABS # 0.03 K/uL (0-0.2); EOS % 1.7 %; EOS ABS # 0.11 K/uL (0-0.5); HEMATOCRIT 39.2 % (37-47); HEMOGLOBIN 12.7 g/dL (12.0-16.0); IG# 0.02 K/uL (0.00-0.02); LYMPH % 35.1 %; LYMPH ABS # 2.29 K/uL (1.2-3.4); MEAN CELL VOLUME 95.1 fL (80-100); MEAN CORPUSCULAR HEMOGLOBIN 30.8 pg (25-34); MEAN CORPUSCULAR HGB CONC 32.4 g/dl (32-36); MEAN PLATELET VOLUME 9.6 fL (7.4-10.4); MONO % 9.4 %; MONO ABS # 0.61 K/uL (0.11-0.59); NEUT ABS # 3.46 K/uL (1.4-6.5); PLATELET COUNT 207 K/uL (130-400); RED CELL DISTRIBUTION WIDTH SD 48.9 fL (36.4-46.3); WHITE BLOOD COUNT 6.52 K/uL (4.8-10.8)
[2018-02-02 11:37] LABS: BLOOD UREA NITROGEN 18 mg/dl (7-18); CALCIUM 9.7 mg/dl (8.5-10.1); CARBON DIOXIDE 29 mmol/L (21-32); GLUCOSE 102 mg/dl (70-99); POTASSIUM 4.4 mmol/L (3.5-5.1); SODIUM 140 mmol/L (136-145)
== END | disposition home or self-care (01) ==
LOC: C.CPL 09:48
PROVIDERS: ATTEND Surgery
DX: Z01.810 Encounter for preprocedural cardiovascular examination (principal); Z01.812 Encounter for preprocedural laboratory examination

== ENCOUNTER 2018-12-21 07:07 | Inpatient (IN) ==
[2018-12-21] MEDS ORDERED: SODIUM CHLORIDE 0.9% 1000ML 1,000 ML IV ONE (07:33)
--- NOTE | 2018-12-21 08:04 | XRay Report ---
XR chest 1V portable HISTORY: 83 years-old Female back pain, epig abd pain acute mid back pain with acute epigastric abdo lizette pain COMPARISON: Thoracic spine radiographs 12/13/2018, chest radiographs 01/05/2018 TECHNIQUE: Portable AP view of the chest FINDINGS: Cardiomediastinal and hilar silhouettes are within normal limits. Calcification of the thoracic aorti c arch. There is no pneumothorax, large pleural effusion or overt pulmonary edema. Minimal blunting o f the costophrenic angles may reflect trace effusions or atelectasis. Degenerative changes of the spi ne and right shoulder. Left shoulder arthroplasty. IMPRESSION: No acute process. The above report was generated using voice recognition software. It may contain grammatical, syntax o r spelling errors. Electronically signed by: Jone Mckeon M.D. 12/21/2018 8:03 AM
[2018-12-21 08:09] LABS: Basophils # (auto) 0.01 K/uL (0-0.2); Basophils % (auto) 0.1 %; Eosinophils # (auto) 0.01 K/uL (0-0.5); Eosinophils % (auto) 0.1 %; Hematocrit (blood only) 38.4 % (37-47); Hemoglobin 13.4 g/dL (12.0-16.0); Immature Granulocytes # (auto) 0.14 K/uL (0.00-0.02); Immature Granulocytes % (auto) 1.2 %; Lymphocytes # (auto) 1.92 K/uL (1.2-3.4); Mean Corpuscular Hgb Conc 34.9 g/dL (32-36); Mean Corpuscular Volume 90.6 fL (80-100); Mean Platelet Volume 9.2 fL (7.4-10.4); Monocytes # (auto) 0.78 K/uL (0.11-0.59); Monocytes % (auto) 6.9 %; Neutrophils # (auto) 8.44 K/uL (1.4-6.5); Neutrophils % (auto) 74.7 %; Platelet Count 241 K/uL (130-400); RDW Coefficient of Variation 13.7 % (11.5-14.5); RDW Standard Deviation 45.1 fL (36.4-46.3); Red Blood Count 4.24 M/uL (4.2-5.4)
--- NOTE | 2018-12-21 08:22 | Emergency Department Note ---
Entered by Yashira Adan acting as a scribe for Reji Lowery DO History of Present Illness General Chief complaint: Abdominal Pain Stated complaint: VOMITING, PAIN IN BACK AND ABD Time Seen by Provider: 12/21/18 07:16 Source: patient and family Mode of arrival: ambulatory Limitations: no limitations History of Present Illness Provider complaint: upper back pain Onset (ago): week(s) 3 Location: back Radiation: abdomen Pain Consistency: + other (worsening) Quality: + other (upper back pain) Relieved By: not by medication Associated symptoms: + denies other symptoms, + nausea/vomiting and + other (abd pain); no rash Treatments prior to arrival: other (gabapentin) The patient is an 83 year old female who presents to the ER with complaints of worsening upper back pain that began about 3 weeks ago. The patients reports that she has had pain intermittently for 3 weeks and that it has worsened recently. He states that she was evaluated at [facility] on Tuesday for lower back pain radiating to her upper abdominal pain. The patient notes that she was given morphine during this visit but that it did not alleviate her symptoms. She reports that she was discharged with gabapentin and that she has been taking it since. She states that she did have an episode of emesis yesterday but believes it could be due to her medication. She also notes that she does have a history of shingles and that she last had a flare-up was several years ago where she did have an associated rash. She denies any current rash or any other symptoms. She reports that she was also treated for a suspected UTI. [facility] records show that the patient had blood work as well as a CAT scan of the abdomen and pelvis done and was diagnosed with shingles. Home Medications Home Medications Medication Instructions Recorded Confirmed Type cetirizine 10 mg tablet 5 mg PO DAILY PRN 12/13/18 12/21/18 History dorzolamide 2 % eye drops 1 drp OPHTHALMIC (EYE) DAILY #10 ml 12/13/18 12/21/18 History fluticasone propionate 50 2 sprays INTRANASAL DAILY #48 gm 12/13/18 12/21/18 Rx mcg/actuation nasal spray,suspension gabapentin 100 mg capsule 100 mg PO TID #90 cap 12/13/18 12/21/18 Rx lansoprazole 30 mg capsule,delayed 30 mg PO DAILY #90 cap 12/13/18 12/21/18 Rx release lysine 500 mg tablet 500 mg PO DAILY 12/13/18 12/21/18 History multivitamin tablet 1 tab PO DAILY 12/13/18 12/21/18 History oxycodone-acetaminophen 5 mg-325 See Rx Instructions PO .COMPLEX 12/13/18 12/21/18 Rx mg tablet PRN #100 tab prednisone 10 mg tablet See Rx Instructions PO QAM #15 tab 12/13/18 12/21/18 Rx travoprost 0.004 % eye drops 1 drp OPHTHALMIC (EYE) PM #0 12/13/18 12/21/18 History atorvastatin 20 mg PO HS 12/21/18 12/21/18 History diltiazem HCl 120 mg PO DAILY 12/21/18 12/21/18 History lisinopril 20 mg PO DAILY 12/21/18 12/21/18 History Allergies Allergy/AdvReac Type Severity Reaction Status Date / Time Penicillins Allergy Mild Rash Verified 12/21/18 08:06 naproxen AdvReac Unknown nausea/vomi Verified 12/21/18 08:06 ting simvastatin AdvReac Unknown nausea/vomi Verified 12/21/18 08:06 ting Past Med/Surg History Medical History Hypertension (Chronic) Hypercholesteremia (Chronic) Cervical spinal mass Left side "benign"/ Followed by Neuro Colitis Deep vein thrombosis HX S/P TKA 1990 Diverticulitis GERD (gastroesophageal reflux disease) Glaucoma Migraine Osteoarthritis Skin cancer, basal cell Tremor Surgical History H/O colonoscopy History of herniorrhaphy left inguinal hernia 02/2018 at [facility]. 7.0FRANTZ Saucedo 2, grade 1 view. No issues. History of inguinal hernia repair History of knee replacement History of tonsillectomy Hx of appendectomy Hx of arthroscopic knee surgery Hx of removal of cyst Left wrist ganglion Hx of total knee arthroplasty RIGHT AND LEFT Hx of total shoulder replacement LEFT Nausea and vomiting after administration of anesthetic agent Family History Mother Hypertension Sister Hypertension Breast cancer Brother No problems noted. Aunt Breast cancer Family/Other Stomach cancer Hypertension Social History Preferred Language: [place] Communication Ability: Effective Beliefs That Will Affect Care: None marital status: Current Living Situation: Spouse current occupational status: retired Other Information That Helps Us Care for You: No Feels Safe at Home: Yes Safety Concerns: Feels Safe At This Time Smoking Status: Never smoker Second Hand Exposure: No Hx Alcohol Use: No Hx Substance Use: No Review of Systems See HPI for pertinent positives & negatives. and A total of 10 systems reviewed and were otherwise negative Physical Exam Vital Signs Vital Signs - 24 hr 12/21/18 07:12 12/21/18 08:18 12/21/18 10:01 Temperature 36.4 C L Temperature Source Oral Sepsis Recent Fever Within 48 Hours No Sepsis Action Taken by Nursing No Action Required Pulse Rate 70 Pulse Rate [Apical] 97 H 76 Respiratory Rate 22 16 20 Respiratory Effort / Characteristics Non-Labored Spontaneous Respiratory Depth Normal Blood Pressure 153/86 H Blood Pressure [Left Arm] 176/93 H 189/88 H Blood Pressure Mean 108 Blood Pressure Mean [Left Arm] 120 121 Blood Pressure Position Sitting Pulse Oximetry 96 95 95 Oxygen Delivery Method Room Air Room Air Room Air 12/21/18 10:22 12/21/18 11:18 12/21/18 12:26 Temperature Temperature Source Sepsis Recent Fever Within 48 Hours Sepsis Action Taken by Nursing Pulse Rate Pulse Rate [Apical] 74 77 Respiratory Rate 20 18 Respiratory Effort / Characteristics Respiratory Depth Blood Pressure Blood Pressure [Left Arm] 183/82 H 174/70 H Blood Pressure Mean Blood Pressure Mean [Left Arm] 115 104 Blood Pressure Position Pulse Oximetry 95 95 Oxygen Delivery Method Room Air Room Air CONSTITUTIONAL/VITAL SIGNS: Reviewed / noted above. GENERAL: Non-toxic in appearance. INTEGUMENTARY: Warm, dry, and pink. No rashes noted. HEAD: Normocephalic. EYES: without scleral icterus or trauma. ENT/OROPHARYNX: clear and moist. LYMPHADENOPATHY/NECK: Is supple without lymphadenopathy or meningismus. RESPIRATORY: Lungs clear and equal. CARDIOVASCULAR: Regular rate and rhythm. GI/ABDOMEN: Soft. Mild tenderness epigastric area. No organomegaly or pulsatile mass. No rebound or guarding. Normal bowel sounds. EXTREMITIES: Warm and well perfused. BACK: No CVA tenderness. NEUROLOGICAL: Intact without focal deficits. PSYCHIATRIC: normal affect. MUSCULOSKELETAL: Normally developed with good muscle tone. Course 720: Past medical records reviewed. The patient was evaluated in room B7. A complete history and physical examination was performed. 1027: I discussed the patient's case with Dr. Gordillo - [facility] Hospitalist. He will evaluate the patient for further management. Administered Medications Ioversol (Optiray 320 125ml) 119 ml IV ONCE PRN PRN Reason: Interaction Checking Stop: 12/25/18 09:18 Last Admin: 12/21/18 09:19 Dose: 119 ml Documented by: [id number] Discontinued Medications Enoxaparin Sodium (Lovenox) 60 mg SQ NOW STA Stop: 12/21/18 11:22 Last Admin: 12/21/18 12:06 Dose: 60 mg Documented by: [id number] Heparin Sodium (Porcine) (Heparin Sodium (Porcine)) Confirm Administered Dose 5,000 units .ROUTE .STK-MED ONE Stop: 12/21/18 10:36 Last Admin: 12/21/18 10:40 Dose: 4,000 units Documented by: [id number] Cosigned by: [id number] Heparin Sodium/Dextrose () 1 ea IV NOW STA; Protocol Stop: 12/21/18 10:17 Last Admin: 12/21/18 12:02 Dose: Not Given Documented by: [id number] Heparin Sodium/Dextrose (Heparin Sodium/Dextrose) Confirm Administered Dose 25,000 units IV .STK-MED ONE Stop: 12/21/18 10:36 Last Admin: 12/21/18 10:40 Dose: 950 units Documented by: [id number] Cosigned by: [id number] Hydromorphone HCl (Dilaudid) 0.5 mg IV NOW STA Stop: 12/21/18 08:53 Last Admin: 12/21/18 08:58 Dose: 0.5 mg Documented by: [id number] Hydromorphone HCl (Dilaudid) 0.5 mg IV NOW STA Stop: 12/21/18 10:52 Last Admin: 12/21/18 11:19 Dose: 0.5 mg Documented by: [id number] Hydromorphone HCl (Dilaudid) 0.5 mg IV NOW STA Stop: 12/21/18 13:01 Last Admin: 12/21/18 13:04 Dose: 0.5 mg Documented by: [id number] Sodium Chloride (Nss 1000ml) 1,000 mls @ 999 mls/hr IV .Q1H1M ONE Stop: 12/21/18 08:33 Last Infusion: 12/21/18 09:13 Dose: 0 mls/hr Documented by: [id number] Admin: 12/21/18 08:08 Dose: 999 mls/hr Documented by: [id number] Oxycodone/Acetaminophen (Percocet 10/325mg) 1 tab PO NOW STA Stop: 12/21/18 10:50 Last Admin: 12/21/18 11:19 Dose: 1 tab Documented by: [id number] Medical Decision Making Differential Diagnosis Differential diagnosis includes: pancreatitis, hepatitis, or acute cholecystitis, AAA, UTI, pyelonephritis, kidney stones, appendicitis, diverticulitis, shingles, bowel obstruction mesenteric ischemia, intussusception, hernia, ovarian torsion, ruptured ovarian cyst. Medical Records Attestation: I reviewed the patient's medical records. [facility] records show that the patient had blood work as well as a CAT scan of the abdomen and pelvis done and was diagnosed with shingles. Home Medications Current Medication List: was personally reviewed by me Laboratory Data Attestation: I reviewed the patient's lab results. Result diagrams: 12/21/18 07:53 12/21/18 07:53 Lab Results 12/21/18 12/21/18 12/21/18 Range/Units 07:53 07:53 10:03 WBC 11.30 H (4.8-10.8) K/uL RBC 4.24 (4.2-5.4) M/uL Hgb 13.4 (12.0-16.0) g/dL Hct 38.4 (37-47) % MCV 90.6 (80-100) fL MCH 31.6 (25-34) pg MCHC 34.9 (32-36) g/dL RDW Std Deviation 45.1 (36.4-46.3) fL RDW Coeff of Morgan 13.7 (11.5-14.5) % Plt Count 241 (130-400) K/uL MPV 9.2 (7.4-10.4) fL Immature Gran % (Auto) 1.2 % Neut % (Auto) 74.7 % Lymph % (Auto) 17.0 % [place] % (Auto) 6.9 % Eos % (Auto) 0.1 % Baso % (Auto) 0.1 % Immature Gran # (Auto) 0.14 H (0.00-0.02) K/uL Neut # (Auto) 8.44 H (1.4-6.5) K/uL Lymph # (Auto) 1.92 (1.2-3.4) K/uL [place] # (Auto) 0.78 H (0.11-0.59) K/uL Eos # (Auto) 0.01 (0-0.5) K/uL Baso # (Auto) 0.01 (0-0.2) K/uL PT 10.8 (9.0-12.0) Seconds INR 1.1 (0.9-1.1) APTT 23.6 (21.0-31.0) Seconds PTT Ratio 0.9 Sodium 131 L (136-145) mmol/L Potassium 3.9 (3.5-5.1) mmol/L Chloride 96 L (98-107) mmol/L Carbon Dioxide 26 (21-32) mmol/L Anion Gap 9.0 (3-11) BUN 13 (7-18) mg/dl Creatinine 0.77 (0.6-1.2) mg/dl Est Cr Clr Drug Dosing 42.2 ml/min Est GFR ( Amer) 81.6 Est GFR (Non-Af Amer) 70.4 BUN/Creatinine Ratio 17.2 (10-20) Glucose 112 H (70-99) mg/dl Calcium 9.2 (8.5-10.1) mg/dl Total Bilirubin 0.8 (0.2-1) mg/dl AST 16 (15-37) U/L ALT 17 (12-78) U/L Alkaline Phosphatase 133 H (45-117) U/L Total Protein 6.9 (6.4-8.2) gm/dl Albumin 3.0 L (3.4-5.0) gm/dl Globulin 3.9 (2.5-4.0) gm/dl Albumin/Globulin Ratio 0.8 L (0.9-2) Lipase 68 L (73-393) U/L Imaging Data Radiologist's Impression: Radiology results as stated below per my review and the radiologist's interpretation: XR chest 1V portable HISTORY: 83 years-old Female back pain, epig abd pain acute mid back pain with acute epigastric abdominal pain COMPARISON: Thoracic spine radiographs 12/13/2018, chest radiographs 01/05/2018 TECHNIQUE: Portable AP view of the chest FINDINGS: Cardiomediastinal and hilar silhouettes are within normal limits. Calcification of the thoracic aortic arch. There is no pneumothorax, large pleural effusion or overt pulmonary edema. Minimal blunting of the costophrenic angles may reflect trace effusions or atelectasis. Degenerative changes of the spine and right shoulder. Left shoulder arthroplasty. IMPRESSION: No acute process. The above report was generated using voice recognition software. It may contain grammatical, syntax or spelling errors. Electronically signed by: Jone Mckeon M.D. 12/21/2018 8:[address] angio chest dissec wo/w con HISTORY: 83 years-old Female lower chest pain into back acute mid and lower chest pain with radiation into the back. COMPARISON: CT abdomen and pelvis 11/08/2018 TECHNIQUE: CTA of the chest was obtained both with and without the use of 119 mL Optiray 320 IV contrast. All measurements were obtained according to NASCET criteria. Coronal and sagittal MIPS were obtained from the axial data set. A dose lowering technique was used consistent with the principals of EFREN. FINDINGS: CTA: Heart is mildly enlarged. No pericardial effusion. Coronary arterial calcifications are noted. No thoracic aortic aneurysm or dissection. Moderate mixed plaque formation with patency of the imaged great vessels. No mediastinal or intramural hematoma identified. The pulmonary arterial tree is opacified to level of the subsegmental branches. Multiple filling defects are noted within segmental and subsegmental branches within all lobes bilaterally with additional emboli noted about the distal aspect of the right main pulmonary artery extending into the lobar segments. No evidence of associated right heart strain. CT CHEST: No large thyroid nodule or pathologic adenopathy by CT size criteria. No pneumothorax or pleural effusion. Mild dependent subsegmental bibasilar atelectasis with mild bilateral bronchial wall thickening. Right apical pleural parenchymal scarring. No large pulmonary infarct identified. No suspicious pulmonary nodules or masses identified. Central airways appear to be patent. No acute process of the imaged upper abdomen. Small hiatal hernia. Thickening of the left adrenal gland. Cortical scarring and parenchymal thinning of the interpolar left kidney with left renal cyst. Soft tissues are unremarkable. Bones appear to be intact. Degenerative changes of the right shoulder and spine. Left shoulder total joint arthroplasty. IMPRESSION: 1. Pulmonary emboli are noted bilaterally involving lobar, segmental and subsegmental branches as well as the distal aspect of the right main pulmonary artery. No evidence of associated right heart strain or pulmonary infarction. 2. No pleural effusion or focal airspace consolidation. 3. No acute aortic pathology. 4. Small hiatal hernia. The above report was generated using voice recognition software. It may contain grammatical, syntax or spelling errors. Electronically signed by: Jone Mckeon M.D. 12/21/2018 9:40 AM BILATERAL LOWER EXTREMITY VENOUS DOPPLER HISTORY: Screening study in a patient with pulmonary emboli DVTs COMPARISON STUDY: CTA of the chest of same day FINDINGS: There is normal compressibility, flow, and augmentation within the bilateral lower extremity deep venous systems. IMPRESSION: No DVT within the right or left lower extremity. Electronically signed by: Jone Mckeon M.D. 12/21/2018 11:55 AM ECG Data Attestation: I personally reviewed and interpreted this ECG as follows: Indication: back/shoulder pain Rate (beats per minute): 84 Rhythm: normal sinus Findings: no ST elevation and no ectopy Blood Pressure Blood Pressure Findings: Elevated blood pressure Blood Pressure Disposition: further management by hospitalist JUAN ANTONIO Paige This is an 83-year-old female who presents to the ED with a chief complaint of abdominal pain. The pain was evaluated on Tuesday and . The pain has been off and on for the past several weeks. Tuesday, they diagnosed the patient with shingles. The patient has not developed a rash. They did do a CT scan of the abdomen and pelvis. They also performed blood work and urinalysis. A urine culture did not show infection. The patient's blood work was unremarkable other than an elevated BUN and creatinine. She was treated with normal saline IV for this. The patient was discharged on Neurontin. She is states that that has not helped her symptoms. A CT scan of the abdomen pelvis revealed no significant abnormalities. The patient continues having symptoms today. She now complains of some pain in the bilateral lower thorax area. She also complains of some epigastric abdominal pain. She is in no distress on exam. Her vital signs are stable. She is mildly hypertensive. The patient's blood work including a CBC and chemistry panel was unremarkable. Chest x-ray was clear. EKG shows a normal sinus rhythm. A CT scan of the abdomen pelvis reveals bilateral pulmonary emboli. The patient was treated with IV fluids and IV Dilaudid. She will be seen by the hospitalist for further evaluation and care. Impression & Plan Bilateral pulmonary embolism Discharge Plan Visit Data Chief Complaint: Abdominal Pain Stated Complaint: VOMITING, PAIN IN BACK AND ABD ED Provider: Reji Lowery Discharge Problem: Bilateral pulmonary embolism Patient Disposition: Being Evaluated by Hospitalist Forms Stand Alone Forms: My [facility] Prescriptions Prescriptions: No Action cetirizine 10 mg tablet 5 mg PO DAILY PRN (Reason: Allergy Symptoms) RF: 0 dorzolamide 2 % drops 1 drp OPHTHALMIC (EYE) DAILY Qty: 10 RF: 3 fluticasone propionate 50 mcg/actuation spray,suspension 2 sprays INTRANASAL DAILY Qty: 48 RF: 3 lysine [L-Lysine] 500 mg tablet 500 mg PO DAILY RF: 0 lansoprazole [Prevacid] 30 mg capsule,delayed release(DR/EC) 30 mg PO DAILY Qty: 90 RF: 3 multivitamin tablet 1 tab PO DAILY RF: 0 travoprost 0.004 % drops 1 drp OPHTHALMIC (EYE) PM Qty: 0 RF: 0 gabapentin 100 mg capsule 100 mg PO TID Qty: 90 RF: 0 prednisone 10 mg tablet See Rx Instructions PO QAM Qty: 15 RF: 0 oxycodone-acetaminophen [Percocet] 5-325 mg tablet See Rx Instructions PO .COMPLEX PRN (Reason: pain) Qty: 100 RF: 0 atorvastatin 20 mg tablet 20 mg PO HS RF: 0 lisinopril 20 mg tablet 20 mg PO DAILY RF: 0 diltiazem HCl 120 mg capsule,extended release 24 hr 120 mg PO DAILY RF: 0 Referrals Referrals: Toby Naranjo MD [Primary Care Provider] - The scribe's documentation has been prepared under my direction and personally reviewed by me in its entirety. I confirm that the note above accurately reflects all work, treatment, procedures, and medical decision making performed by me.
[2018-12-21 08:25] LABS: BUN Creatinine Ratio 17.2 (10-20); Calcium 9.2 mg/dl (8.5-10.1); Creatinine Clr Calc Pharmacy 42.2 ml/min; Est GFR (African American) 81.6; Est GFR (Non-African American) 70.4; Potassium 3.9 mmol/L (3.5-5.1)
[2018-12-21 08:28] LABS: Albumin Globulin Ratio 0.8 (0.9-2); Bilirubin,Total 0.8 mg/dl (0.2-1); Globulin 3.9 gm/dl (2.5-4.0); Total Protein 6.9 gm/dl (6.4-8.2)
[2018-12-21] MEDS ORDERED: HYDROmorphone INJ 0.5 MG/0.5 ML SYR IV STA ×3 (08:52→13:00)
[2018-12-21] MEDS ORDERED: OPTIRAY 320 125ml IV PRN (09:19)
--- NOTE | 2018-12-21 09:42 | CT Scan Report ---
CT angio chest dissec wo/w con HISTORY: 83 years-old Female lower chest pain into back acute mid and lower chest pain with radiatio n into the back. COMPARISON: CT abdomen and pelvis 11/08/2018 TECHNIQUE: CTA of the chest was obtained both with and without the use of 119 mL Optiray 320 IV contr ast. All measurements were obtained according to NASCET criteria. Coronal and sagittal MIPS were obta ined from the axial data set. A dose lowering technique was used consistent with the principals of ZHENG CONNOLLY. FINDINGS: CTA: Heart is mildly enlarged. No pericardial effusion. Coronary arterial calcifications are noted. No tho racic aortic aneurysm or dissection. Moderate mixed plaque formation with patency of the imaged great vessels. No mediastinal or intramural hematoma identified. The pulmonary arterial tree is opacified to level of the subsegmental branches. Multiple filling defects are noted within segmental and subseg mental branches within all lobes bilaterally with additional emboli noted about the distal aspect of the right main pulmonary artery extending into the lobar segments. No evidence of associated right he art strain. CT CHEST: No large thyroid nodule or pathologic adenopathy by CT size criteria. No pneumothorax or pleural effu anirudh. Mild dependent subsegmental bibasilar atelectasis with mild bilateral bronchial wall thickening . Right apical pleural parenchymal scarring. No large pulmonary infarct identified. No suspicious pul monary nodules or masses identified. Central airways appear to be patent. No acute process of the ra ged upper abdomen. Small hiatal hernia. Thickening of the left adrenal gland. Cortical scarring and p arenchymal thinning of the interpolar left kidney with left renal cyst. Soft tissues are unremarkable . Bones appear to be intact. Degenerative changes of the right shoulder and spine. Left shoulder tota l joint arthroplasty. IMPRESSION: 1. Pulmonary emboli are noted bilaterally involving lobar, segmental and subsegmental branches as wel l as the distal aspect of the right main pulmonary artery. No evidence of associated right heart stra in or pulmonary infarction. 2. No pleural effusion or focal airspace consolidation. 3. No acute aortic pathology. 4. Small hiatal hernia. The above report was generated using voice recognition software. It may contain grammatical, syntax o r spelling errors. Electronically signed by: Jone Mckeon M.D. 12/21/2018 9:40 AM
[2018-12-21 10:21] LABS: INR 1.1 (0.9-1.1); Partial Thromboplastin Ratio 0.9; Partial Thromboplastin Time 23.6 Seconds (21.0-31.0); Prothrombin Time 10.8 Seconds (9.0-12.0)
[2018-12-21] MEDS ORDERED: HEPARIN 25000 UNIT/500 ML D5W IV ONE (10:35)
[2018-12-21] MEDS ORDERED: HEPARIN SOD 5,000 UNIT/0.5 ML VIAL ONE (10:35)
[2018-12-21] MEDS ORDERED: OXYCODONE/ACETAMINOPHEN 10-325 TAB PO STA (10:49)
--- NOTE | 2018-12-21 11:17 | Hospitalist Consultation ---
Date of Consultation December 21, 2018 Assessment & Plan (1) Bilateral pulmonary embolism: 83 y/o F Hx HTN, HLD, glaucoma, GERD, shingles x 2. The pt was camping at [facility] 2 days prior when she had acute onset of moderate to sever pain in her upper abdomen, BL chest and back. She proceeded to the nearest ER, convinced that this was a recurrence of her shingles. As there was no rash, she was discharged with antiinflammatories, a few percocets and a steroid taper. She had no relief and returns to the ER due to persistent pain. A CTA was obtained demonstrating BL pulmonary emboli. The pt denies SOB and has not exhibited tachycardia or hypoxia. There is no evidence of R heart strain on imaging or EKG. 1) BL PE - there is no hypoxia, tachycardia or evidence of heart strain. The pt is a candidate for NOAC therapy and can likely be DCd if her pain can be controlled. This has been ongoing for > 2 days and she has been able to manage at home. A LE Doppler is pending. We will provide a single dose of Lovenox and an oral narcotic to gauge her response. 2) HTN - cont diltiazem, Lisinopril 3) HLD - cont Lipitor 4) Glaucoma - cont dorzolamide, travaprost Total time for this consult including review of labs, meds, imaging, EKG, records - discussion with pt, , ER attending - time spent treating pt in ER - 40 min Addendum to follow Present on Admission?: Yes History of Present Illness Reason for Consultation: Pulmonary emboli - abdominal, chest and back pain. Requesting Physician: Beverley History of Present Illness 83 y/o F Hx HTN, HLD, glaucoma, GERD, shingles x 2. The pt was camping at [facility] 2 days prior when she had acute onset of moderate to sever pain in her upper abdomen, BL chest and back. She proceeded to the nearest ER, convinced that this was a recurrence of her shingles. As there was no rash, she was discharged with antiinflammatories, a few percocets and a steroid taper. She had no relief and returns to the ER due to persistent pain. A CTA was obtained demonstrating BL pulmonary emboli. The pt denies SOB and has not exhibited tachycardia or hypoxia. There is no evidence of R heart strain on imaging or EKG. PMH: 1) HTN 2) HLD 3) GERD 4) Glaucoma Surgical: L rotator cuff Social: No history of drinking or smoking. The pt ambulates freely without a walker and denies she is prone to falls. Family: Father due to COPD Allergies Allergy/AdvReac Type Severity Reaction Status Date / Time Penicillins Allergy Mild Rash Verified 12/21/18 08:06 naproxen AdvReac Unknown nausea/vomi Verified 12/21/18 08:06 ting simvastatin AdvReac Unknown nausea/vomi Verified 12/21/18 08:06 ting Home Medications Home Medications Medication Instructions Recorded Confirmed Type cetirizine 10 mg tablet 5 mg PO DAILY PRN 12/13/18 12/21/18 History dorzolamide 2 % eye drops 1 drp OPHTHALMIC (EYE) DAILY #10 ml 12/13/18 12/21/18 History fluticasone propionate 50 2 sprays INTRANASAL DAILY #48 gm 12/13/18 12/21/18 Rx mcg/actuation nasal spray,suspension gabapentin 100 mg capsule 100 mg PO TID #90 cap 12/13/18 12/21/18 Rx lansoprazole 30 mg capsule,delayed 30 mg PO DAILY #90 cap 12/13/18 12/21/18 Rx release lysine 500 mg tablet 500 mg PO DAILY 12/13/18 12/21/18 History multivitamin tablet 1 tab PO DAILY 12/13/18 12/21/18 History oxycodone-acetaminophen 5 mg-325 See Rx Instructions PO .COMPLEX 12/13/18 12/21/18 Rx mg tablet PRN #100 tab prednisone 10 mg tablet See Rx Instructions PO QAM #15 tab 12/13/18 12/21/18 Rx travoprost 0.004 % eye drops 1 drp OPHTHALMIC (EYE) PM #0 12/13/18 12/21/18 History atorvastatin 20 mg PO HS 12/21/18 12/21/18 History diltiazem HCl 120 mg PO DAILY 12/21/18 12/21/18 History lisinopril 20 mg PO DAILY 12/21/18 12/21/18 History Patient History Medical History Hypertension (Chronic) Hypercholesteremia (Chronic) Cervical spinal mass Left side "benign"/ Followed by Neuro Colitis Deep vein thrombosis HX S/P TKA 1990 Diverticulitis GERD (gastroesophageal reflux disease) Glaucoma Migraine Osteoarthritis Skin cancer, basal cell Tremor Surgical History H/O colonoscopy History of herniorrhaphy left inguinal hernia 02/2018 at [facility]. 7.0ETT, [place] 2, grade 1 view. No issues. History of inguinal hernia repair History of knee replacement History of tonsillectomy Hx of appendectomy Hx of arthroscopic knee surgery Hx of removal of cyst Left wrist ganglion Hx of total knee arthroplasty RIGHT AND LEFT Hx of total shoulder replacement LEFT Nausea and vomiting after administration of anesthetic agent Family History Mother Hypertension Sister Hypertension Breast cancer Brother No problems noted. Aunt Breast cancer Family/Other Stomach cancer Hypertension Social History Preferred Language: Kosovan Communication Ability: Effective Beliefs That Will Affect Care: None marital status: Current Living Situation: Spouse current occupational status: retired Other Information That Helps Us Care for You: No Feels Safe at Home: Yes Safety Concerns: Feels Safe At This Time Smoking Status: Never smoker Second Hand Exposure: No Hx Alcohol Use: No Hx Substance Use: No Review of Systems Review of Systems: Gen: Denies fevers, night sweats, rigors, fatigue, malaise, weight loss/gain ENT: Denies congestion, throat pain, hearing loss Eyes: Denies acute visual changes CV: BL pleuritic CP Pulmonary: Denies SOB, cough, wheezing GI: Denies N/V, diarrhea, constipation - upper abdominal pain Neuro: Denies acute or unilateral weakness, acute gait impairment, headache or acute visual changes Musculoskeletal: Back pain as above Endocrine: Denies polydipsia, polyuria Skin: Denies acute rashes or ulcers Physical Exam Physical Exam: General: AAO x 3, no distress ENT: No erythema or exudates, no thrush Eyes: NOAM, EOMI Head and neck: Normocephalic, atraumatic, No JVD, neck is supple. Chest/heart: Nontender, S1,2, RRR, no murmurs, no gallops Lungs: CTAB, no wheezing or crackles Abdomen: Nontender, nondistended, BS+ Neuro: AAO x 3, speech is clear, no unilateral weakness or loss of sensation, coordination intact Musculoskeletal: No joint inflammation, muscle tenderness, FROM Skin: No acute rashes or ulcers - areas of hyperpigmentation about the face and extremities. Extremities: No clubbing, cyanosis, edema Results & Data Vital Signs (Past 12 Hours) Vital Signs Temp Pulse Pulse Resp BP BP Pulse Ox 12/21/18 10:01 76 20 189/88 H 95 12/21/18 08:18 97 H 16 176/93 H 95 12/21/18 07:12 97.5 F L 70 22 153/86 H 96 Diagnostic Findings CTA: 1. Pulmonary emboli are noted bilaterally involving lobar, segmental and subsegmental branches as well as the distal aspect of the right main pulmonary a rtery. No evidence of associated right heart strain or pulmonary infarction. 2. No pleural effusion or focal airspace consolidation. 3. No acute aortic pathology. 4. Small hiatal hernia. EKG: Sinus - no acute ST elevation/depressions. No significant change from prior PG Care Time/CCT Total # of Minutes Spent Total Time Spent with Patient: Total time spent is greater than 50% in coordination of care (as documented) at patient's floor/unit and/or counseling patient:
[2018-12-21] MEDS ORDERED: ENOXAPARIN INJ 60 MG/0.6 ML SYR SQ STA (11:21)
--- NOTE | 2018-12-21 11:56 | Ultrasound Report ---
BILATERAL LOWER EXTREMITY VENOUS DOPPLER HISTORY: Screening study in a patient with pulmonary emboli DVTs COMPARISON STUDY: CTA of the chest of same day FINDINGS: There is normal compressibility, flow, and augmentation within the bilateral lower extremit y deep venous systems. IMPRESSION: No DVT within the right or left lower extremity. Electronically signed by: Jone Mckeon M.D. 12/21/2018 11:55 AM
[2018-12-21] MEDS: HYDROmorphone INJ 1 MG/ML SYRINGE IV PRN ×2 (15:21→21:11)
[2018-12-21] MEDS ORDERED: ALUMINUM/MAGNESIUM SUSP 30 ML UDC PO PRN (16:08)
[2018-12-21] MEDS ORDERED: MAGNESIUM HYDROXIDE SUSP 30 ML UDC PO PRN (16:08)
[2018-12-21] MEDS ORDERED: POLYETHYLENE (MIRALAX) 17 GM PACK PO PRN (16:08)
[2018-12-21] MEDS ORDERED: CETIRIZINE HCL 10 MG TABLET PO PRN (16:08)
[2018-12-21] MEDS ORDERED: ONDANSETRON INJ 2 MG/ML 2 ML VIAL IV PRN (16:08)
[2018-12-21] MEDS: LISINOPRIL 20 MG TAB PO SCH (17:03)
[2018-12-21] MEDS: dilTIAZem ER 120 MG CAPCR PO SCH (17:03)
[2018-12-21] MEDS: OXYCODONE/ACETAMINOPHEN 10-325 TAB PO PRN (17:54)
[2018-12-21] MEDS: ATORVASTATIN 20 MG TAB PO SCH (21:12)
[2018-12-21] MEDS: GABAPENTIN 100 MG CAP PO SCH (21:12)
[2018-12-21] MEDS: TRAVOPROST Z 0.004% OPH SOLN 2.5 ML BTL OP SCH (21:12)
[2018-12-22] MEDS ORDERED: ENOXAPARIN INJ 60 MG/0.6 ML SYR SQ SCH
[2018-12-22 07:05] LABS: Basophils # (auto) 0.02 K/uL (0-0.2); Basophils % (auto) 0.2 %; Eosinophils # (auto) 0.02 K/uL (0-0.5); Eosinophils % (auto) 0.2 %; Hematocrit (blood only) 37.3 % (37-47); Hemoglobin 12.8 g/dL (12.0-16.0); Immature Granulocytes # (auto) 0.13 K/uL (0.00-0.02); Immature Granulocytes % (auto) 1.2 %; Lymphocytes # (auto) 3.42 K/uL (1.2-3.4); Lymphocytes % (auto) 31.6 %; Mean Corpuscular Hgb Conc 34.3 g/dL (32-36); Mean Corpuscular Volume 91.6 fL (80-100); Monocytes # (auto) 1.33 K/uL (0.11-0.59); Monocytes % (auto) 12.3 %; Neutrophils # (auto) 5.89 K/uL (1.4-6.5); Neutrophils % (auto) 54.5 %; Platelet Count 278 K/uL (130-400); RDW Coefficient of Variation 14.1 % (11.5-14.5); RDW Standard Deviation 46.3 fL (36.4-46.3); Red Blood Count 4.07 M/uL (4.2-5.4); White Blood Count 10.81 K/uL (4.8-10.8)
[2018-12-22 07:46] LABS: BUN Creatinine Ratio 19.9 (10-20); Calcium 9.2 mg/dl (8.5-10.1); Creatinine Clr Calc Pharmacy 45.2 ml/min; Est GFR (African American) 88.5; Est GFR (Non-African American) 76.4; Magnesium 2.4 mg/dl (1.8-2.4); Potassium 3.6 mmol/L (3.5-5.1)
[2018-12-22] MEDS: dilTIAZem ER 120 MG CAPCR PO SCH (07:53)
[2018-12-22] MEDS: LISINOPRIL 20 MG TAB PO SCH (07:53)
[2018-12-22] MEDS: PANTOprazole 40 MG TAB PO SCH (07:54)
[2018-12-22] MEDS: DORZOLAMIDE HCL 2% OPH SOLN 10 ML BTL OP SCH (07:54)
[2018-12-22] MEDS: MULTIVITAMIN TAB PO SCH (07:54)
[2018-12-22] MEDS: GABAPENTIN 100 MG CAP PO SCH ×3 (07:54→21:18)
[2018-12-22] MEDS: OXYCODONE/ACETAMINOPHEN 10-325 TAB PO PRN (07:55)
[2018-12-22] MEDS ORDERED: predniSONE 10 MG TABLET PO SCH (09:00)
[2018-12-22] MEDS ORDERED: NON-FORMULARY MEDICATION (Lysine [L-Lysine] 500 MG) PO SCH (09:00)
[2018-12-22] MEDS: POLYETHYLENE (MIRALAX) 17 GM PACK PO SCH (13:37)
[2018-12-22] MEDS: DOCUSATE SODIUM/SENNA 50/8.6MG TAB PO SCH ×2 (13:37→21:18)
[2018-12-22] MEDS: RIVAROXABAN 15 MG TAB PO SCH ×3 (13:37→21:18)
--- NOTE | 2018-12-22 15:50 | Hospitalist Progress Note ---
Date of Service December 22, 2018 Assessment & Plan (1) Bilateral pulmonary embolism: - Diagnosed during this admission via CTA. - Echo showed EF 55-60%, no wall motion abnormalities or right heart strain. -She has been hemodynamically stable - Convert Lovenox to Xarelto 15 mg PO BID. - Continue Percocet prn pain. - H/o RLE DVT in 1990 following bilat TKA; acute event was likely provoked by recent travel. - Previously requiring 2L via NC -- now weaned to room air. -Would ensure that all appropriate cancer screenings are up-to-date as an outpatient -Could have underlying malignancy, however she is recently had a CT of the chest, abdomen, and pelvis all without any significant abnormality found that would be consistent with a malignancy (2) Nausea & vomiting: - Recent symptoms of N/V -- evaluated by Dr. Christian, s/p upper GI series in November 2018. - Had esophageal dysmotility, moderate GERD and small hiatal hernia -- may all be contributing to symptoms. - Speech consulted, recommend a slippery diet. - Will need f/u with Dr. Christian at discharge to discuss completing EGD/further studies. - Constipation may also be contributing -- see below. (3) Hypercholesteremia: - Continue statin as prescribed. (4) Hypertension: - Continue Diltiazem and Lisinopril as prescribed. (5) Neuropathy: -She was recently started on gabapentin 100 mg TID 2 weeks ago by her PCP when she was thought to have pain from shingles when she first presented with this chest pain -No need to continue this-would discontinue gabapentin (6) Constipation: - No BM in 5 days -- start Senokot BID with Miralax daily. - Add additional agent if no improvement. - Consider KUB to rule out obstruction in setting of N/V. (7) GERD (gastroesophageal reflux disease): - Noted on upper GI series. - PPI daily. -Follow-up with surgeon as planned as an outpatient for possible EGD (8) DVT prophylaxis: - SCDS; started Xarelto BID. Dispo: Med/surg with tele; discharge likely on 12/23/18 pending improvement in nausea/PO intake. Xarelto copay is $20.00. Supervising Physician Co-Signing Physician Notes PA Supervision Note: I did not personally see or examine the patient today, but I verified all mendez points of JULIEN Barajas's assessment and plan with the following exceptions/additions: None Subjective Pt. has left sided chest/rib pain radiating to back likely related to PE. She also complains of trouble swallowing with intermittent nausea -- has been a chronic issue. Recently evaluated by Dr. Christian -- upper GI series completed. Speech therapy consulted, recommended slippery diet. Will need to f/u as outpatient. Review of Systems Review of Systems: All systems reviewed & are unremarkable except as noted in HPI & below Constitutional: no fever, no chills, no fatigue, no weakness and no anorexia Ear, Nose, Mouth, Throat: + dysphagia Respiratory: no cough, no dyspnea and no dyspnea on exertion Cardiovascular: + chest pain (With PE ); no dyspnea, no dyspnea at rest, no dyspnea on exertion, no palpitations and no edema Gastrointestinal: + abdominal pain (left sided pain related to PE ), + nausea, + vomiting and + constipation; no diarrhea/loose stools Genitourinary: no difficulty urinating Musculoskeletal: no back pain and no joint pain Integumentary: no non-healing lesions Allergy / Immunological: no rash Physical Exam Physical Exam: General: Resting comfortably HEENT: NC/AT; PERRLA with EOMI; [place] conjunctiva, MMM. No erythema of posterior pharynx Neck: Supple and nontender Cardiac: RRR w/o murmurs, gallops or rubs Lungs: CTA bilaterally Abdomen: Bowel normoactive X 4; Nontender to palpation Extremities: Warm. No edema present Neuro: No focal weakness Skin: No rash Results & Data Vital Signs (Past 12 Hours) Vital Signs Temp Pulse Pulse Resp BP BP Pulse Ox 12/22/18 15:12 36.2 C L 71 18 111/56 L 94 12/22/18 11:44 36.8 C 71 16 123/63 95 12/22/18 08:00 80 12/22/18 07:14 37.3 C 78 16 141/67 H 96 12/22/18 04:30 37.1 C 78 20 130/65 97 Laboratory Results 12/22/18 12/22/18 Range/Units 06:12 06:12 WBC 10.81 H (4.8-10.8) K/uL RBC 4.07 L (4.2-5.4) M/uL Hgb 12.8 (12.0-16.0) g/dL Hct 37.3 (37-47) % MCV 91.6 (80-100) fL MCH 31.4 (25-34) pg MCHC 34.3 (32-36) g/dL RDW Std Deviation 46.3 (36.4-46.3) fL RDW Coeff of Morgan 14.1 (11.5-14.5) % Plt Count 278 (130-400) K/uL MPV 9.0 (7.4-10.4) fL Immature Gran % (Auto) 1.2 % Neut % (Auto) 54.5 % Lymph % (Auto) 31.6 % [place] % (Auto) 12.3 % Eos % (Auto) 0.2 % Baso % (Auto) 0.2 % Immature Gran # (Auto) 0.13 H (0.00-0.02) K/uL Neut # (Auto) 5.89 (1.4-6.5) K/uL Lymph # (Auto) 3.42 H (1.2-3.4) K/uL [place] # (Auto) 1.33 H (0.11-0.59) K/uL Eos # (Auto) 0.02 (0-0.5) K/uL Baso # (Auto) 0.02 (0-0.2) K/uL Sodium 134 L (136-145) mmol/L Potassium 3.6 (3.5-5.1) mmol/L Chloride 98 (98-107) mmol/L Carbon Dioxide 30 (21-32) mmol/L Anion Gap 6.0 (3-11) BUN 14 (7-18) mg/dl Creatinine 0.72 (0.6-1.2) mg/dl Est Cr Clr Drug Dosing 45.2 ml/min Est GFR ( Amer) 88.5 Est GFR (Non-Af Amer) 76.4 BUN/Creatinine Ratio 19.9 (10-20) Glucose 86 (70-99) mg/dl Calcium 9.2 (8.5-10.1) mg/dl Magnesium 2.4 (1.8-2.4) mg/dl PG Care Time/CCT Total # of Minutes Spent Total Time Spent with Patient: Total time spent is greater than 50% in coordination of care (as documented) at patient's floor/unit and/or counseling patient:
[2018-12-22] MEDS: ATORVASTATIN 20 MG TAB PO SCH (21:17)
[2018-12-22] MEDS: TRAVOPROST Z 0.004% OPH SOLN 2.5 ML BTL OP SCH (21:19)
[2018-12-23 06:18] LABS: Hemoglobin 12.3 g/dL (12.0-16.0); Mean Corpuscular Hgb Conc 33.2 g/dL (32-36); Mean Corpuscular Volume 90.5 fL (80-100); Platelet Count 259 K/uL (130-400); RDW Coefficient of Variation 14.2 % (11.5-14.5); RDW Standard Deviation 46.6 fL (36.4-46.3); Red Blood Count 4.09 M/uL (4.2-5.4); White Blood Count 9.77 K/uL (4.8-10.8)
[2018-12-23 06:48] LABS: Albumin Level 2.8 gm/dl (3.4-5.0); BUN Creatinine Ratio 22.7 (10-20); Calcium 9.4 mg/dl (8.5-10.1); Creatinine Clr Calc Pharmacy 30.1 ml/min; Est GFR (African American) 54.2; Est GFR (Non-African American) 46.8; Magnesium 2.4 mg/dl (1.8-2.4)
[2018-12-23 06:50] LABS: Albumin Globulin Ratio 0.9 (0.9-2); Bilirubin,Total 0.5 mg/dl (0.2-1); Globulin 3.2 gm/dl (2.5-4.0)
[2018-12-23] MEDS: POLYETHYLENE (MIRALAX) 17 GM PACK PO SCH (07:56)
[2018-12-23] MEDS: PANTOprazole 40 MG TAB PO SCH (07:58)
[2018-12-23] MEDS: RIVAROXABAN 15 MG TAB PO SCH (07:58)
[2018-12-23] MEDS: DOCUSATE SODIUM/SENNA 50/8.6MG TAB PO SCH (07:58)
[2018-12-23] MEDS: MULTIVITAMIN TAB PO SCH (07:58)
[2018-12-23] MEDS: dilTIAZem ER 120 MG CAPCR PO SCH (07:59)
[2018-12-23] MEDS: LISINOPRIL 20 MG TAB PO SCH (07:59)
[2018-12-23] MEDS: DORZOLAMIDE HCL 2% OPH SOLN 10 ML BTL OP SCH (07:59)
[2018-12-23] MEDS ORDERED: LACTULOSE SYRUP 30 GM/45 ML UDP PO ONE (09:15)
[2018-12-23] MEDS ORDERED: CETIRIZINE HCL 10 MG TABLET PO SCH (11:00)
[2018-12-23] MEDS ORDERED: CARBAMIDE PEROXIDE 6.5% 15 ML BTL OT SCH (11:00)
--- NOTE | 2018-12-23 14:46 | Discharge Summary ---
Date of Service December 23, 2018 Admission HPI Per Admitting Provider 83 y/o F Hx HTN, HLD, glaucoma, GERD, shingles x 2. The pt was camping at [facility] 2 days prior when she had acute onset of moderate to sever pain in her upper abdomen, BL chest and back. She proceeded to the nearest ER, convinced that this was a recurrence of her shingles. As there was no rash, she was discharged with antiinflammatories, a few percocets and a steroid taper. She had no relief and returns to the ER due to persistent pain. A CTA was obtained demonstrating BL pulmonary emboli. The pt denies SOB and has not exhibited tachycardia or hypoxia. There is no evidence of R heart strain on imaging or EKG. Admission Exam Per Admitting Provider General: AAO x 3, no distress ENT: No erythema or exudates, no thrush Eyes: NOAM, EOMI Head and neck: Normocephalic, atraumatic, No JVD, neck is supple. Chest/heart: Nontender, S1,2, RRR, no murmurs, no gallops Lungs: CTAB, no wheezing or crackles Abdomen: Nontender, nondistended, BS+ Neuro: AAO x 3, speech is clear, no unilateral weakness or loss of sensation, coordination intact Musculoskeletal: No joint inflammation, muscle tenderness, FROM Skin: No acute rashes or ulcers - areas of hyperpigmentation about the face and extremities. Extremities: No clubbing, cyanosis, edema Principal Diagnosis Bilateral Pulmonary Embolism Discharge Exam General: Resting comfortably HEENT: NC/AT; PERRLA with EOMI; Fluid noted behind left tympanic membrane, no evidence of infection; No erythema of posterior pharynx Neck: Supple and nontender Cardiac: RRR w/o murmurs, gallops or rubs Lungs: CTA bilaterally Abdomen: Bowel normoactive X 4; Nontender to palpation Extremities: Warm. 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 Echo showed EF 55-60%, no wall motion abnormalities or right heart strain. Converted Lovenox to Xarelto 15 mg PO BID (prescribed starter pack) Percocet prn pain - was not requiring med. H/o RLE DVT in 1990 following bilat TKA (provoked). Unknown etiology of acute bilat PE -- consider underlying malignancy, recent CT chest/abdomen/pelvis without any acute abnormality. Does have esophageal dysmotility; consider EGD to rule out esophageal cancer. Will need appropriate cancer screening as outpatient. Previously requiring 2L via NC -- now weaned to room air. (2) Nausea & vomiting: Recent symptoms of N/V -- evaluated by Dr. Christian, s/p upper GI series in November 2018. Had esophageal dysmotility, moderate GERD and small hiatal hernia -- may all be contributing to symptoms. Speech consulted, recommend a slippery diet. Will need f/u with Dr. Christian at discharge to discuss completing EGD/further studies. Constipation may also be contributing -- now having loose BMs. (3) Hypercholesteremia: Continued statin as prescribed. (4) Hypertension: Continued Diltiazem and Lisinopril as prescribed. BP low on day of discharge, now improved. (5) Neuropathy: She was recently started on gabapentin 100 mg TID 2 weeks ago by her PCP when she was thought to have pain from shingles when she first presented with this chest pain. D/c'ed med. (6) Left ear pain: No evidence of acute infection on exam; did have fluid behind TM on left side. On Zyrtec at home -- has not received during this admission, may be contributing to symptoms. Restarted antihistamine; also started Debrox drops due to mild cerumen noted in left ear. (7) Constipation: Now resolved with bowel regimen. (8) GERD (gastroesophageal reflux disease): Noted on upper GI series. Will need to follow up with Dr. Christian for further evaluation. (9) DVT prophylaxis: Started Xarelto. Discharged to home on 12/23/18. Total Time Total Time Spent Total Time Spent (In Minutes): >30 minutes Total Time Includes: Examination of the Patient, Discharge Planning, Medication Reconciliation, Communication With Other Providers and Other Discharge Plan Discharge Items Patient Disposition: Home - Self-Care Reason For Visit: PEs Discharge Diagnosis: Bilateral Pulmonary Emboli Condition: Good Discharge Goals: Improve disease control, Improve function, Increase independence, Improve nutritional status and Prevent disease Activity: As commented below Exercise/Sports: Wait until after follow-up appointment Non-emergency contact: Primary Care Provider Call non-emergency contact if: you have any medication questions, your symptoms worsen, your pain is not controlled, your pain is worsening, your pain is unusual for you, your pain is concerning for you and you have a fever Follow-up/Referrals: Toby Naranjo MD [Primary Care Provider] - 01/01/19 2:15 pm (Please, follow up at Dr. Naranjo's office on TuesdayJanuary 01 at 2:15 pm. *If you need to change this appointment, call the office at [phone].) Diet: Regular Addtl Provider Instructions: 1. Bilateral Pulmonary Emboli * Please continue Xarelto 15 mg twice daily for a 21 day course followed by 20 mg daily. * Call your primary care provider or go to the ER if you develop bleeding (including nose bleeds, blood in urine, blood with bowel movements) * Please follow up with Dr. Naranjo as scheduled on 01/01/19. 2. Trouble swallowing/nausea * An appointment will be scheduled with Dr. Christian in 1-2 weeks to discuss completing an EGD. * Continue a slippery diet at home to prevent further issues. * Drink plenty of fluids to avoid dehydration. 3. Constipation * Continue a stool softener twice daily scheduled along with Miralax daily. * Consider Dulcolax pill if you do not have a bowel movement with the above measures. 3. Left Ear Pain * Continue to use over the counter Debrox ear drops twice daily to soften/remove earwax from left ear. * You can also take an over the counter antihistamine, such as Zyrtec and Claritin, to reduce fluid build up behind the ears. * Please discuss ear pain with Dr. Naranjo on 01/01/19 if no improvement following discharge to home. Prescriptions: New sennosides-docusate sodium [Senokot-S] 8.6-50 mg Tablet 1 tab PO BID Qty: 1 RF: 0 polyethylene glycol 3350 [Miralax] 17 gram Powder In Packet 17 g PO DAILY PRN (Reason: constipation) Qty: 1 RF: 0 cetirizine 10 mg Tablet 10 mg PO QAM Qty: 1 RF: 0 Xarelto 15 mg (42)- 20 mg (9) tablets,dose pack 1 ea PO BID Qty: 51 RF: 0 Continued dorzolamide 2 % drops 1 drp OPHTHALMIC (EYE) DAILY Qty: 10 RF: 3 fluticasone propionate 50 mcg/actuation spray,suspension 2 sprays INTRANASAL DAILY Qty: 48 RF: 3 lysine [L-Lysine] 500 mg tablet 500 mg PO DAILY RF: 0 lansoprazole [Prevacid] 30 mg capsule,delayed release(DR/EC) 30 mg PO DAILY Qty: 90 RF: 3 multivitamin tablet 1 tab PO DAILY RF: 0 travoprost 0.004 % drops 1 drp OPHTHALMIC (EYE) PM Qty: 0 RF: 0 oxycodone-acetaminophen [Percocet] 5-325 mg tablet See Rx Instructions PO .COMPLEX PRN (Reason: pain) Qty: 100 RF: 0 atorvastatin 20 mg tablet 20 mg PO HS RF: 0 lisinopril 20 mg tablet 20 mg PO DAILY RF: 0 diltiazem HCl 120 mg capsule,extended release 24 hr 120 mg PO DAILY RF: 0 Discontinued cetirizine 10 mg tablet 5 mg PO DAILY PRN (Reason: Allergy Symptoms) RF: 0 gabapentin 100 mg capsule 100 mg PO TID Qty: 90 RF: 0 prednisone 10 mg tablet See Rx Instructions PO QAM Qty: 15 RF: 0 Stand-Alone Forms: [facility] Discharge Orders: Discharge Order (Routine); Ordered 12/23/18 Ordered By: Josette Barajas Admission Data Admit Date/Time: 12/21/18 14:34 Attending Provider: Sachi Martinez Admit Provider: Augustin Gordillo Primary Care Provider: Toby Naranjo Other Providers: Augustin Gordillo ; Ottoniel Clement Service: Telemetry Medical Other Interventions: Discharge Summary Assessment (RN) Last Done: 12/23/18 14:57 Pending Studies at Discharge: No DC Date/Time DO NOT enter until pt leaves facility: 12/23/18 15:15 Supervising Physician Co-Signing Physician Notes PA Supervision Note: I personally saw and examined the patient. I verified all mendez points and agree with JULIEN Barajas with the following exceptions and/or additions: Pt feleing very well, denies CP or SOB, is not requiring O2. Sh eis ambulating witout difficulty, jesusita po. Plan outlined as above, stable for dc to home with close outpt f/u. Counseled on risks/benefits/alternatives to anticoagulant therapy. Vitals reviewed RRR no mgr CTAB no wcr Abd +BS soft NT ND
== END 2018-12-23 15:15 | disposition home or self-care (01) | DRG 176 ==
LOC: ED 07:07 → SUATTDRO 14:34 → 2N 14:34
DX: G62.9 Polyneuropathy, unspecified; Z80.3 Family history of malignant neoplasm of breast; K21.9 Gastro-esophageal reflux disease without esophagitis; I10 Essential (primary) hypertension; I26.99 Other pulmonary embolism without acute cor pulmonale; K59.00 Constipation, unspecified; Z82.49 Family history of ischemic heart disease and other diseases of the circulatory system; E78.00 Pure hypercholesterolemia, unspecified; Z96.653 Presence of artificial knee joint, bilateral; H40.9 Unspecified glaucoma; Z88.0 Allergy status to penicillin; Z96.612 Presence of left artificial shoulder joint

== ENCOUNTER 2022-02-18 15:30 | Observation (INO) ==
[2022-02-18] MEDS ORDERED: ONDANSETRON INJ 2 MG/ML 2 ML VIAL IV STA (15:51)
[2022-02-18] MEDS ORDERED: fentaNYL citrate 100 MCG/2 ML VIAL IV STA ×2 (15:51→17:14)
--- NOTE | 2022-02-18 15:54 | Emergency Department Note ---
History of Present Illness General Chief complaint: Elbow Injury/Pain Stated complaint: FALL, POSSIBLE BROKEN ELBOW Time Seen by Provider: 02/18/22 15:45 History of Present Illness Maximum Pain Intensity: 10 This is an 86-year-old female anticoagulated on Xarelto the presents to the emergency department via private vehicle with complaints of "fall, possible broken left elbow". Patient is here with her . They note that earlier today around 3:15 PM she was stepping backwards and tripped over her feet causing her to fall backwards landing on her left elbow. She does not think she struck her head and did not have any pain at all for about 15 to 20 minutes following the incident. After about 15 minutes status post fall she began with left elbow pain and swelling to the left elbow. She is right-hand dominant. She denies any headache or neck pain. No chest pain or shortness of breath. No abdominal pain. No back pain. She does note some minor discomfort to the left lateral ribs just medial to the left arm. No hemoptysis. Home Medications Medication Instructions Recorded Confirmed Type multivitamin 1 tab PO QAM 12/13/18 02/18/22 History Lactobacillus acidophilus 10 0 cell PO QAM 01/18/20 02/18/22 History billion cell capsule (Probiotic) atorvastatin 20 mg tablet 20 mg PO HS cholesterol #90 tabs 05/18/21 02/18/22 Rx oxybutynin chloride 5 mg 5 mg PO DAILY #90 tabs 06/09/21 02/18/22 Rx tablet,extended release 24 hr diltiazem HCl 120 mg capsule,24 120 mg PO QAM blood pressure #90 08/12/21 02/18/22 Rx hr,extended release caps tramadol 50 mg tablet 50 mg PO Q6H PRN pain #120 tabs 12/01/21 02/18/22 Rx valacyclovir 500 mg tablet 1,000 mg PO DIRECTED PRN Cold 01/07/22 02/18/22 History Sores buspirone 5 mg tablet 5 mg PO BID PRN anxiety #60 tabs 02/02/22 02/18/22 Rx omeprazole 20 mg capsule,delayed 20 mg PO DAILYBB 02/18/22 02/18/22 History release rivaroxaban 10 mg tablet (Xarelto) 10 mg PO HS 02/18/22 02/18/22 History trazodone 50 mg tablet 50 - 100 mg PO HS PRN insomnia 02/18/22 02/18/22 History Allergies Allergy/AdvReac Type Severity Reaction Status Date / Time Penicillins Allergy Mild Rash Verified 02/18/22 18:57 naproxen AdvReac Intermediate nausea/vomi Verified 02/18/22 18:57 ting simvastatin AdvReac Intermediate nausea/vomi Verified 02/18/22 18:57 ting Past Med/Surg History Medical History Bilateral pulmonary embolism (12/2018) Burning with urination C. difficile colitis Cataracts, bilateral Cervical spinal mass Left side "benign"/ Followed by Neuro Chronic kidney disease, stage 3 Colitis Deep vein thrombosis HX S/P TKA 1990 Difficulty swallowing Diverticulitis of colon Ganglion cyst of wrist GERD (gastroesophageal reflux disease) Glaucoma Herpes labialis Herpes zoster Hypercholesteremia Hypertension Inguinal hernia, bilateral Migraine Nocturia Osteoarthritis Pulmonary embolism 12/2018--reason for xarelto--unknown cause Right lower lobe pulmonary nodule Skin cancer, basal cell Tremor Surgical History H/O colonoscopy History of herniorrhaphy left inguinal hernia 02/2018 at [facility]. 7.0ETT, [place] 2, grade 1 view. No issues. History of inguinal hernia repair History of knee replacement History of repair of right rotator cuff History of tonsillectomy Hx of appendectomy Hx of arthroscopic knee surgery Hx of removal of cyst Left wrist ganglion Hx of total knee arthroplasty RIGHT AND LEFT Hx of total shoulder replacement LEFT Nausea and vomiting after administration of anesthetic agent Family History Mother Hypertension Sister Hypertension Breast cancer Brother No problems noted. 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 Beliefs That Will Affect Care: None marital status: Current Living Situation: Spouse current occupational status: retired Feels Safe at Home: Yes Safety Concerns: Feels Safe At This Time Childhood Exposure to Second-Hand Smoke: Yes Dental Care, Regularly: No Physical Activity Frequency: Daily Seatbelt Use: always Sunscreen Use: Yes Assistive Devices: Denture - Upper, Denture - Lower and Glasses Review of Systems A total of 10 systems reviewed and were otherwise negative Physical Exam Vital Signs Vital Signs - 24 hr 02/18/22 15:39 02/18/22 15:51 02/18/22 18:00 Temperature 36.3 C L Temperature Source Temporal Artery Scan Pulse Rate 76 Pulse Rate [Finger] 59 L Pulse Rhythm [Finger] Regular Pulse Strength [Finger] Normal Respiratory Rate 20 18 Respiratory Effort / Characteristics Non-Labored Spontaneous Non-Labored Respiratory Depth Normal Normal Respiratory Pattern Regular Regular Blood Pressure 181/74 H Blood Pressure [Right Arm] 194/78 H Blood Pressure Mean 109 Blood Pressure Mean [Right Arm] 116 Blood Pressure Position [Right Arm] Lying Pulse Oximetry 96 91 98 Oxygen Delivery Method Room Air Room Air Nasal Cannula Oxygen Flow Rate 2 Sepsis Recent Fever Within 48 Hours No Sepsis New/Unexplained Change in Mental Status No Sepsis Action Taken by Nursing No Action Required VITAL SIGNS - Vital signs and nursing notes were reviewed. Hypertensive, otherwise stable. GENERAL - 86-year-old female appearing her stated age. Communicates well with provider and answers questions appropriately. SKIN - Gross examination of the entire body surface demonstrates no lacerations to the body surface. Large amount of edema and bruising to the left elbow circumferentially. HEAD - Normocephalic, Atraumatic. No Chris's Sign or Raccoon's Eyes. No depressed skull fractures palpable. EYES - PERRL with EOMI bilaterally. Without subconjunctival hemorrhage. Palpebral conjunctiva pink and moist with no injection. EARS - No deformities of external structures noted on gross examination bilaterally. No hemotympanum present. No tympanic perforation noted. Handle of malleus, umbo, cone of light, pars tensa/flaccid all easily visualized. NOSE - Midline and without cyanosis. No epistaxis or clear watery discharge noted. Septum midline without deviation. No septal hematoma noted. No overlying ecchymosis noted. MOUTH/OROPHARYNX - Without perioral cyanosis. Tongue midline with equal elevation of palate bilaterally. No blood noted in the oropharynx. No tonsillar hypertrophy, erythema, or exudates noted. No dental fractures noted. NECK -No tenderness to palpation over the cervical spinous processes. No cervical paraspinal muscle tenderness noted. LUNGS - Chest wall symmetric without accessory muscle use, intercostals retractions, or central cyanosis. No tenderness with deep inspiration noted against the examiner's applied pressure to the lateral chest rollins. Normal vesicular breath sounds CTA B/L. No wheezes, rales, or rhonchi appreciated. CARDIAC - RRR ABDOMEN - Abdominal contour normal and without pulsations or visible masses. EXTREMITIES -tenderness throughout the left elbow region diffusely. No break in the skin. No left shoulder or proximal humeral tenderness. There is tenderness as noted above throughout the entire left elbow. There is no left mid or distal forearm tenderness. Left radial pulse intact. 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 Cap refill of the digits of the left hand within normal limits. +5/5 strength noted in UE/LE bilaterally. NEUROLOGIC - Cranial nerves II through XII grossly intact. PSYCH - A&O, and cooperates fully with examiner. Pt is very pleasant and i nteracts well with examiner. Course Administered Medications Discontinued Medications Acetaminophen (Acetaminophen 500 Mg Tab) Confirm Administered Dose 1,000 mg .ROUTE .STK-MED ONE Stop: 02/18/22 21:36 Last Admin: 02/18/22 21:42 Dose: 1,000 mg Documented By: ES Fentanyl Citrate (Fentanyl Citrate 100 Mcg/2 Ml Vial) 50 mcg IV NOW STA Stop: 02/18/22 15:52 Last Admin: 02/18/22 16:25 Dose: 50 mcg Documented By: ALEXIS Fentanyl Citrate (Fentanyl Citrate 100 Mcg/2 Ml Vial) 25 mcg IV NOW STA Stop: 02/18/22 17:15 Last Admin: 02/18/22 17:24 Dose: 25 mcg Documented By: CCM Hydralazine HCl (Hydralazine Hcl 20 Mg/Ml Vial) 5 mg IV NOW ONE Stop: 02/18/22 21:01 Last Admin: 02/18/22 21:42 Dose: 5 mg Documented By: ES Morphine Sulfate (Morphine Sulfate 2 Mg/Ml Carp) 2 mg IV NOW STA Stop: 02/18/22 18:53 Last Admin: 02/18/22 19:10 Dose: 2 mg Documented By: RD Ondansetron HCl (Ondansetron Inj 2 Mg/Ml 2 Ml Vial) 4 mg IV NOW STA Stop: 02/18/22 15:52 Last Admin: 02/18/22 16:24 Dose: 4 mg Documented By: ALEXIS Medical Decision Making Laboratory Data Result diagrams: 02/18/22 16:10 02/18/22 16:10 Lab Results 02/18/22 02/18/22 02/18/22 Range/Units 16:10 16:10 16:10 WBC 6.35 (4.8-10.8) K/ul RBC 4.07 (3.93-5.22) M/uL Hgb 12.8 (12.0-16.0) g/dl Hct 38.7 (34.1-44.9) % MCV 95.1 (80.0-100.0) fL MCH 31.4 (25.0-34.0) pg MCHC 33.1 (32.0-36.0) g/dL RDW Std Deviation 43.0 (36.4-46.3) fL RDW Coeff of Morgan 12.3 (11.5-14.5) % Plt Count 213 (130-400) K/uL MPV 9.5 (9.4-12.3) fL Immature Gran % (Auto) 0.3 % Neut % (Auto) 48.3 % Lymph % (Auto) 41.9 % [place] % (Auto) 8.0 % Eos % (Auto) 0.9 % Baso % (Auto) 0.6 % Neut # (Auto) 3.06 (1.4-6.5) K/uL Lymph # (Auto) 2.66 (1.2-3.4) K/uL [place] # (Auto) 0.51 (0.24-0.82) K/uL Eos # (Auto) 0.06 (0-0.50) K/uL Baso # (Auto) 0.04 (0-0.2) K/uL Immature Gran # (Auto) 0.02 (0.00-0.02) K/uL PT 11.3 (9.0-12.0) Seconds INR 1.1 (0.9-1.1) APTT 27.5 (21.0-31.0) Seconds PTT Ratio 1.0 Sodium 137 (136-145) mmol/L Potassium 4.0 (3.5-5.1) mmol/L Chloride 102 (98-107) mmol/L Carbon Dioxide 27 (21-32) mmol/L Anion Gap 8 (3-11) BUN 20 (6-23) mg/dl Creatinine 1.07 (0.6-1.2) mg/dl Est Cr Clr Drug Dosing 31.2 ml/min Est GFR ( Amer) 53.7 ml/min Est GFR (Non-Af Amer) 46.3 ml/min BUN/Creatinine Ratio 18.7 (10-20) Glucose 103 H (70-99(Fasting)) mg/dl Calcium 10.0 (8.5-10.1) mg/dl Total Bilirubin 0.7 (0.2-1.0) mg/dl AST 18 (13-39) U/L ALT 12 (7-52) U/L Alkaline Phosphatase 117 H (34-104) U/L Total Protein 6.8 (6.0-8.3) gm/dl Albumin 4.3 (3.4-5.0) gm/dl Globulin 2.5 (2.5-4.0) gm/dl Albumin/Globulin Ratio 1.7 (0.9-2) SARS-CoV-2, RNA, NAAT (NEGATIVE) 02/18/22 Range/Units 16:25 WBC (4.8-10.8) K/ul RBC (3.93-5.22) M/uL Hgb (12.0-16.0) g/dl Hct (34.1-44.9) % MCV (80.0-100.0) fL MCH (25.0-34.0) pg MCHC (32.0-36.0) g/dL RDW Std Deviation (36.4-46.3) fL RDW Coeff of Morgan (11.5-14.5) % Plt Count (130-400) K/uL MPV (9.4-12.3) fL Immature Gran % (Auto) % Neut % (Auto) % Lymph % (Auto) % [place] % (Auto) % Eos % (Auto) % Baso % (Auto) % Neut # (Auto) (1.4-6.5) K/uL Lymph # (Auto) (1.2-3.4) K/uL [place] # (Auto) (0.24-0.82) K/uL Eos # (Auto) (0-0.50) K/uL Baso # (Auto) (0-0.2) K/uL Immature Gran # (Auto) (0.00-0.02) K/uL PT (9.0-12.0) Seconds INR (0.9-1.1) APTT (21.0-31.0) Seconds PTT Ratio Sodium (136-145) mmol/L Potassium (3.5-5.1) mmol/L Chloride (98-107) mmol/L Carbon Dioxide (21-32) mmol/L Anion Gap (3-11) BUN (6-23) mg/dl Creatinine (0.6-1.2) mg/dl Est Cr Clr Drug Dosing ml/min Est GFR ( Amer) ml/min Est GFR (Non-Af Amer) ml/min BUN/Creatinine Ratio (10-20) Glucose (70-99(Fasting)) mg/dl Calcium (8.5-10.1) mg/dl Total Bilirubin (0.2-1.0) mg/dl AST (13-39) U/L ALT (7-52) U/L Alkaline Phosphatase (34-104) U/L Total Protein (6.0-8.3) gm/dl Albumin (3.4-5.0) gm/dl Globulin (2.5-4.0) gm/dl Albumin/Globulin Ratio (0.9-2) SARS-CoV-2, RNA, NAAT NEGATIVE (NEGATIVE) Imaging Data Radiologist's Impression: Elbow X-Ray 02/18/22 15:51 XR elbow LT min 3V routine CLINICAL HISTORY: Fall, L arm pain COMPARISON: None FINDINGS: Alignment of the left elbow is anatomic. No evidence for a joint effusion. A lucency within the olecranon is noted. This is probably artifactual. Note is made of marked soft tissue swelling overlying the olecranon. IMPRESSION: 1. No evidence for a joint effusion. Lucency within the olecranon. This is likely artifactual. An acute nondisplaced fracture could appear similar but is considered less likely. 2. Marked soft tissue swelling overlying the olecranon. Given the clinical history, this favors a hematoma. Distal biceps injury cannot be excluded by radiography. A distended bursa could appear similar. ACT 112: Negative or not required by law. Electronically signed by: Rajan Ochoa M.D. 02/18/2022 6:09 PM Ribs w/Chest X-Ray 02/18/22 15:51 XR ribs LT min 2V w [id number] CLINICAL HISTORY: Left rib pain s/p fall COMPARISON STUDY: Chest 03/23/2019. FINDINGS: No pneumothorax. No pleural effusions. There is mild elevation of the right hemidiaphragm. The heart is mildly enlarged. There is a left-sided shoulder prosthesis. There are calcifications within the aortic knob. No acute rib fractures. IMPRESSION: No acute rib fractures. No pneumothorax. ACT 112: Negative or not required by law. Electronically signed by: Alexi Padilla M.D. 02/18/2022 9:[address] 02/18/22 15:54 CT OF THE CERVICAL SPINE WITHOUT CONTRAST CLINICAL HISTORY: Fall, anticoagulated COMPARISON STUDY: Cervical spine CT January 18, 2020. TECHNIQUE: Helical axial images of the cervical spine were obtained without IV contrast. Sagittal and coronal reconstructions were viewed. Automated exposure control was utilized for the study. A dose lowering technique was utilized adhering to the principles of ALARA. FINDINGS: No acute cervical spine fracture is identified. Severe multilevel facet arthrosis is noted. There is moderate multilevel degenerative disc disease. The central canal and neural foramen are suboptimally assessed by CT, however central canal narrowing at the C1 level appears similar to CT of January 18, 2020. No suspicious osseous lesions are noted. No prevertebral edema. The appearance of the cervical spine is unchanged. IMPRESSION: 1. No acute cervical spine fracture or subluxation. 2. No significant change in appearance of the cervical spine, as described above. Severe multilevel degenerative changes. ACT 112: Negative or not required by law. Electronically signed by: Rajan Ochoa M.D. 02/18/2022 5:[address] 02/18/22 15:[address] DOSE: 831.65 mGy.cm HISTORY: Fall, anticoagulated TECHNIQUE: Multiaxial CT images of the head were performed without the use of intravenous contrast. Automated exposure control was utilized for this study. A dose lowering technique was utilized adhering to the principles of ALARA. Comparison: Head CT 01/18/2020. Findings: The paranasal sinuses and mastoid air cells are clear. The calvarium and skull base are intact. There is no mass, hematoma, midline shift, acute infarct. White matter hypodensity is nonspecific but suggestive of microvascular ischemic change. The ventricles and sulci demonstrate mild age-related involutional changes. Impression: No acute intracranial abnormality. Atrophy and microvascular ischemic changes. ACT 112: Negative or not required by law. Electronically signed by: Alexi Padilla M.D. 02/18/2022 4:47 PM MDM Narrative Patient was seen and evaluated as above in room D09. Review was performed of nursing notes and vital signs. I did review pertinent previous visits and patient history. After obtaining a thorough history and physical examination the above work up was performed. Patient presents to us today status post musculoskeletal fall with obvious circumferential bruising to the left elbow. There are no breaks in the integument. Just medial to this region there is some minor reproducible discomfort palpation overlying the left lateral superior ribs, no flail chest. Options of care were discussed with the patient. IV access established. Labs were drawn. She was in a fair amount of pain in regard to the left elbow. IV fentanyl was ordered as well as IV Zofran. X-ray of the left elbow was obtained in addition to left rib series plus chest x-ray. The patient is anticoagulated on Xarelto and I did find it reasonable to add on CT imaging of the head and C- spine. She is unsure whether or not she struck her head during the fall. There are no signs of traumatic injury on examination to the head, C-spine, chest, abdomen, pelvis or back region. Remainder of the extremities are normal to inspection other than the left elbow. Patient's neurovascular status was reassessed several times throughout her time here in the emergency department and on each assessment the patient's left upper extremity was well-perfused. No deficits. The patient does have a large amount of edema/hematoma to the left elbow region. It then tapers to the forearm and then the mid and distal forearm/wrist region are normal. I do not believe that her Xarelto at this time requires emergent reversal but also believe that it be reasonable to observe this overnight here in the hospital to ensure the left elbow region does not continue to enlarge to a point where it could obstruct flow to the distal hand. I discussed the presentation with the on-call orthopedist, Dr. Quinteros. Recommendation was cast padding from the left hand to the left shoulder followed by Bora wrap in that direction. She will then be placed in an arm sling. I do believe that she would benefit from inpatient management to observe this region and to manage her discomfort she will be evaluated then in the a.m. by orthopedics. I believe this is reasonable. This is precautionary. Arm sling also applied. I was then notified by the nurse that she had increasing pain to the left arm region. I then undid the cast padding and Bora wrap. I then rewrapped the area. She was feeling better. I will note that during her time here in the emergency department the patient did have 3 rounds of IV analgesics during her work-up. Case was discussed with the hospitalist service. Please refer to further documentation regarding her stay. No evidence of compartment syndrome at this time. Patient was neurovascularly intact post dressing placement. Cap refill of all digits of the left hand within normal limits GCS: 15 In the evaluation and treatment of this patient the following differential diagnoses were entertained: Fracture, dislocation, subluxation, contusion, compartment syndrome, neurovascular compromise, among others Impression & Plan Fall, Elbow pain, left, Anticoagulated Discharge Plan Visit Data Chief Complaint: Elbow Injury/Pain Stated Complaint: FALL, POSSIBLE BROKEN ELBOW ED Provider: Juancarlos Carreon ED Midlevel Provider: Chris Gamble Discharge Problem: Fall, Elbow pain, left, Anticoagulated Patient Disposition: Admitted As Inpatient Condition: Good Discharge Instructions Interventions: ED Discharge Assessment Last Done: 02/18/22 22:18
[2022-02-18 16:25] LABS: Basophils # (auto) 0.04 K/uL (0-0.2); Basophils % (auto) 0.6 %; Eosinophils # (auto) 0.06 K/uL (0-0.50); Eosinophils % (auto) 0.9 %; Hematocrit (blood only) 38.7 % (34.1-44.9); Hemoglobin 12.8 g/dl (12.0-16.0); Immature Granulocytes # (auto) 0.02 K/uL (0.00-0.02); Immature Granulocytes % (auto) 0.3 %; Lymphocytes # (auto) 2.66 K/uL (1.2-3.4); Lymphocytes % (auto) 41.9 %; Mean Corpuscular Hemoglobin 31.4 pg (25.0-34.0); Mean Corpuscular Hgb Conc 33.1 g/dL (32.0-36.0); Mean Corpuscular Volume 95.1 fL (80.0-100.0); Mean Platelet Volume 9.5 fL (9.4-12.3); Monocytes # (auto) 0.51 K/uL (0.24-0.82); Neutrophils # (auto) 3.06 K/uL (1.4-6.5); Neutrophils % (auto) 48.3 %; Platelet Count 213 K/uL (130-400); RDW Coefficient of Variation 12.3 % (11.5-14.5); Red Blood Count 4.07 M/uL (3.93-5.22); White Blood Count 6.35 K/ul (4.8-10.8)
[2022-02-18 16:36] LABS: INR 1.1 (0.9-1.1); Partial Thromboplastin Time 27.5 Seconds (21.0-31.0); Prothrombin Time 11.3 Seconds (9.0-12.0)
[2022-02-18 16:43] LABS: Albumin Globulin Ratio 1.7 (0.9-2); Albumin Level 4.3 gm/dl (3.4-5.0); BUN Creatinine Ratio 18.7 (10-20); Bilirubin,Total 0.7 mg/dl (0.2-1.0); Creatinine Clr Calc Pharmacy 31.2 ml/min; Est GFR (African American) 53.7 ml/min; Est GFR (Non-African American) 46.3 ml/min; Globulin 2.5 gm/dl (2.5-4.0); Total Protein 6.8 gm/dl (6.0-8.3)
--- NOTE | 2022-02-18 16:52 | CT Scan Report ---
HEAD CT NONCONTRAST CT DOSE: 831.65 mGy.cm HISTORY: Fall, anticoagulated TECHNIQUE: Multiaxial CT images of the head were performed without the use of intravenous contrast. A utomated exposure control was utilized for this study. A dose lowering technique was utilized adheri ng to the principles of ALARA. Comparison: Head CT 01/18/2020. Findings: The paranasal sinuses and mastoid air cells are clear. The calvarium and skull base are int act. There is no mass, hematoma, midline shift, acute infarct. White matter hypodensity is nonspecifi c but suggestive of microvascular ischemic change. The ventricles and sulci demonstrate mild age-rela edilma involutional changes. Impression: No acute intracranial abnormality. Atrophy and microvascular ischemic changes. ACT 112: Negative or not required by law. Electronically signed by: Alexi Padilla M.D. 02/18/2022 4:47 PM
--- NOTE | 2022-02-18 17:07 | CT Scan Report ---
CT OF THE CERVICAL SPINE WITHOUT CONTRAST CLINICAL HISTORY: Fall, anticoagulated COMPARISON STUDY: Cervical spine CT January 18, 2020. TECHNIQUE: Helical axial images of the cervical spine were obtained without IV contrast. Sagittal a nd coronal reconstructions were viewed. Automated exposure control was utilized for the study. A do se lowering technique was utilized adhering to the principles of ALARA. FINDINGS: No acute cervical spine fracture is identified. Severe multilevel facet arthrosis is noted. There is moderate multilevel degenerative disc disease. The central canal and neural foramen are sub optimally assessed by CT, however central canal narrowing at the C1 level appears similar to CT of Ju 2019. No suspicious osseous lesions are noted. No prevertebral edema. The appearance of the ce rvical spine is unchanged. IMPRESSION: 1. No acute cervical spine fracture or subluxation. 2. No significant change in appearance of the cervical spine, as described above. Severe multilevel d egenerative changes. ACT 112: Negative or not required by law. Electronically signed by: Rajan Ochoa M.D. 02/18/2022 5:06 PM
--- NOTE | 2022-02-18 18:11 | XRay Report ---
XR elbow LT min 3V routine CLINICAL HISTORY: Fall, L arm pain COMPARISON: None FINDINGS: Alignment of the left elbow is anatomic. No evidence for a joint effusion. A lucency withi n the olecranon is noted. This is probably artifactual. Note is made of marked soft tissue swelling o verlying the olecranon. IMPRESSION: 1. No evidence for a joint effusion. Lucency within the olecranon. This is likely artifactual. An acu te nondisplaced fracture could appear similar but is considered less likely. 2. Marked soft tissue swelling overlying the olecranon. Given the clinical history, this favors a hem atoma. Distal biceps injury cannot be excluded by radiography. A distended bursa could appear similar . ACT 112: Negative or not required by law. Electronically signed by: Rajan Ochoa M.D. 02/18/2022 6:09 PM
[2022-02-18] MEDS ORDERED: MoRPHine SULFATE 2 MG/ML CARP IV STA (18:52)
--- NOTE | 2022-02-18 20:01 | History & Physical Report ---
Date of Service February 18, 2022 Assessment & Plan (1) Elbow pain, left: Plan: 86yo female with a history of HTN, HLD, CKD3, impaired fasting glucose, NAFLD, OA, GERD, anxiety, and insomnia presents with left elbow pain after a fall earlier today. Left elbow pain s/p mechanical fall Vitals notable for elevated BP but otherwise stable Imaging findings noted in HPI, showing a possible acute nondisplaced fracture Orthopedics (Dr. Brewster) consulted CT left humerus ordered Hgb stable without anemia; low concern for blood loss anemia secondary to expanding hematoma Left arm sling in place NPO at midnight ahead of possible orthopedic procedure Pain control: APAP 1000mg PO q8h scheduled Toradol 10mg IV q4h prn moderate pain Morphine 1mg q2h severe pain Zofran prn nausea PT/OT ordered CM consulted for home safety assessment History of DVT/PE Holding home xarelto d/t concern for worsening elbow hematoma No CP, no SOB, no calf tenderness SpO2 adequate on 2L NC, wean as tolerated Hypertension BP elevated on admission to 180-190s/70s No signs/symptoms of hypertensive emergency Continue home diltiazem Hydralazine 5mg IV (x1) ordered Continue to monitor HLD: continue home statin, repeat lipid profile ordered Impaired fasting glucose: HbA1c 5.7% (11/23/2021), repeat HbA1c ordered GERD: continue home PPI Anxiety: continue home buspar Insomnia: continue home trazodone FEN: heart healthy diet, NPO at midnight, NSS @ 80mL/hr (x1 bag ordered) Code status: full code DVT ppx: SCDs while xarelto is held Consults: orthopedics PT/OT: ordered Case management: consulted for home safety assessment Dispo: med/surg (2) Fall: (3) Hypertension: (4) Hypercholesteremia: (5) Anticoagulant long-term use: (6) Chronic kidney disease, stage 3: (7) Anxiety: (8) GERD (gastroesophageal reflux disease): (9) Insomnia: (10) Prediabetes: History of Present Illness Primary Care Provider: Nico Naranjo MD 86yo female with a history of HTN, HLD, CKD3, DVT/PE (on xarelto), impaired fasting glucose, NAFLD, OA, GERD, anxiety, and insomnia presents with left elbow pain after a fall earlier today. Patient was stepping backwards this afternoon and tripped over her feet, falling backwards onto her left elbow. Denies head trauma or LOC. Left elbow pain and swelling started about 20 minutes after the fall. Pain reached a 9/10 at its worst and is centered around her left elbow, with some mild tenderness of her left axilla. Denies any prodromal symptoms. Patient denies fever, chills, headache, vision changes, palpitations, SOB, edema, abdominal pain, vomiting, dysuria, hematochezia, melena, back pain, lightheadedness, dizziness, numbness, tingling, weakness, or other symptoms. Denies recent illness. Upon arrival, vitals were notable for elevated BP (180-190s/70s); no tachycardia, no tachypnea, patient afebrile, spO2 adequate on 2L NC. Initial labs were notable only for slightly elevated alk phos (117); no leuko cytosis, no anemia, platelets wnl, no electrolyte abnormalities, creatinine not elevated, AST and ALT not elevated, Tbili not elevated, INR 1.1, covid PCR negative. In the ED, patient received fentanyl IV 25mcg (x1) and 50mcg (x1), morphine 2mg IV (x1), and zofran 4mg IV (x1). XR elbow: no evidence for a joint effusion; lucency within the olecranon, likely artifactual; an acute nondisplaced fracture could appear similar but is considered less likely; marked soft tissue swelling overlying the olecranon; given the clinical history, this favors a hematoma; distal biceps injury cannot be excluded by radiography; a distended bursa could appear similarly CXR: CT head: no acute intracranial abnormality; atrophy and microvascular ischemic changes CT c-spine: no acute cervical spine fracture or subluxation; severe multilevel degenerative changes Surrogate decision-maker in case of an emergency: Johnson Kern (home: [phone]) Allergies Allergy/AdvReac Type Severity Reaction Status Date / Time Penicillins Allergy Mild Rash Verified 02/18/22 18:57 naproxen AdvReac Intermediate nausea/vomi Verified 02/18/22 18:57 ting simvastatin AdvReac Intermediate nausea/vomi Verified 02/18/22 18:57 ting Home Medications Medication Instructions Recorded Confirmed Type multivitamin 1 tab PO QAM 12/13/18 02/18/22 History Lactobacillus acidophilus 10 0 cell PO QAM 01/18/20 02/18/22 History billion cell capsule (Probiotic) atorvastatin 20 mg tablet 20 mg PO HS cholesterol #90 tabs 05/18/21 02/18/22 Rx oxybutynin chloride 5 mg 5 mg PO DAILY #90 tabs 06/09/21 02/18/22 Rx tablet,extended release 24 hr diltiazem HCl 120 mg capsule,24 120 mg PO QAM blood pressure #90 08/12/21 02/18/22 Rx hr,extended release caps tramadol 50 mg tablet 50 mg PO Q6H PRN pain #120 tabs 12/01/21 02/18/22 Rx valacyclovir 500 mg tablet 1,000 mg PO DIRECTED PRN Cold 01/07/22 02/18/22 History Sores buspirone 5 mg tablet 5 mg PO BID PRN anxiety #60 tabs 02/02/22 02/18/22 Rx omeprazole 20 mg capsule,delayed 20 mg PO DAILYBB 02/18/22 02/18/22 History release trazodone 50 mg tablet 50 - 100 mg PO HS PRN insomnia 02/18/22 02/18/22 History Past Med/Surg History Medical History Bilateral pulmonary embolism (12/2018) Burning with urination C. difficile colitis Cataracts, bilateral Cervical spinal mass Left side "benign"/ Followed by Neuro Chronic kidney disease, stage 3 Colitis Deep vein thrombosis HX S/P TKA 1990 Difficulty swallowing Diverticulitis of colon Ganglion cyst of wrist GERD (gastroesophageal reflux disease) Glaucoma Herpes labialis Herpes zoster Hypercholesteremia Hypertension Inguinal hernia, bilateral Migraine Nocturia Osteoarthritis Pulmonary embolism 12/2018--reason for xarelto--unknown cause Right lower lobe pulmonary nodule Skin cancer, basal cell Tremor Surgical History H/O colonoscopy History of herniorrhaphy left inguinal hernia 02/2018 at [facility]. 7.0ETT, [place] 2, grade 1 view. No issues. History of inguinal hernia repair History of knee replacement History of repair of right rotator cuff History of tonsillectomy Hx of appendectomy Hx of arthroscopic knee surgery Hx of removal of cyst Left wrist ganglion Hx of total knee arthroplasty RIGHT AND LEFT Hx of total shoulder replacement LEFT Nausea and vomiting after administration of anesthetic agent Family History Mother Hypertension Sister Hypertension Breast cancer Brother No problems noted. 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 Beliefs That Will Affect Care: None marital status: Current Living Situation: Spouse current occupational status: retired Feels Safe at Home: Yes Childhood Exposure to Second-Hand Smoke: Yes Dental Care, Regularly: No Physical Activity Frequency: Daily Seatbelt Use: always Sunscreen Use: Yes Assistive Devices: None Physical Exam Physical Exam: Constitutional: well-appearing, no acute distress HEENT: NCAT, no conjunctival injection, MMM CV: regular rhythm, no murmur appreciated, extremities well-perfused, no LE edema Resp: CTABL, no wheezes/rales/rhonchi appreciated, no increased work of breathing GI: soft, nondistended, nontender, BS normoactive MSK: left arm wrapped and in sling, passive ROM intact but limited by pain, mild left axilla tenderness, RUE strength and ROM intact, LE strength 5/5 bilaterally Skin: no erythema, edema, or ecchymosis appreciated on visible skin of left arm, no erythema, edema, or ecchymosis of left axilla appreciated Neuro: alert, oriented, no focal neurologic deficit appreciated Results & Data Results & Data ([facility]) Vital Signs (Past 12 Hours) Vital Signs Temp Pulse Pulse Resp BP BP Pulse Ox 02/18/22 18:00 59 L 18 194/78 H 98 02/18/22 15:51 91 02/18/22 15:39 36.3 C L 76 20 181/74 H 96 O2 Del Method O2 Flow Rate 02/18/22 18:00 Nasal Cannula 2 02/18/22 15:51 Room Air 02/18/22 15:39 Room Air Supervising Physician Co-Signing Physician Notes Attending addendum: I have physically seen this patient, have supervised the medical residents activities, and agree with the H&P unless as otherwise noted. Assessment and Plan: Left elbow pain status post mechanical fall/hematoma- Possible acute nondisplaced fracture per radiology reading Orthopedic surgery Dr. Brewster consulted, and has patient be admitted CT left humerus ordered Placed left arm in sling N.p.o. after midnight Acetaminophen 1000 mg p.o. every 8 hours as needed mild pain or fever Toradol 10 mg IV every every 6 hours as needed for moderate pain Morphine sulfate 1 mg IV every 2 hours as needed for severe pain Zofran 4 mg IV every 6 hours as needed PT/OT consults DVT/PE history- Hold Xarelto for now due to elbow hematoma Hypertension- . Hydralazine IV as noted Remaining orders and notations as noted Resident Activity Tracking Resident Involvement: Resident Care Provided and Quality Control Coverage Note Care Provided: Adult Hospital Medicine (1) Hypertension Hypertension type: unspecified Qualified Code(s): I10 - Essential (primary) hypertension
[2022-02-18] MEDS ORDERED: traZODone HCL 50 MG TAB PO PRN ×2 (20:33→21:39)
[2022-02-18] MEDS ORDERED: busPIRone 5 MG TAB PO PRN (20:33)
[2022-02-18] MEDS ORDERED: ATORVASTATIN 20 MG TAB PO SCH (21:00)
[2022-02-18] MEDS ORDERED: RIVAROXABAN 10 MG TABLET PO SCH (21:00)
[2022-02-18] MEDS ORDERED: hydrALAZINE HCL 20 MG/ML VIAL IV ONE (21:00)
[2022-02-18] MEDS ORDERED: SODIUM CHLORIDE 0.9% 1000ML 1,000 ML IV SCH (21:00)
--- NOTE | 2022-02-18 21:04 | XRay Report ---
XR ribs LT min 2V w CXR1V CLINICAL HISTORY: Left rib pain s/p fall COMPARISON STUDY: Chest 03/23/2019. FINDINGS: No pneumothorax. No pleural effusions. There is mild elevation of the right hemidiaphragm. The heart is mildly enlarged. There is a left-sided shoulder prosthesis. There are calcifications wit hin the aortic knob. No acute rib fractures. IMPRESSION: No acute rib fractures. No pneumothorax. ACT 112: Negative or not required by law. Electronically signed by: Alexi Padilla M.D. 02/18/2022 9:03 PM
[2022-02-18] MEDS ORDERED: ACETAMINOPHEN 500 MG TAB ONE (21:35)
[2022-02-18] MEDS ORDERED: MoRPHine SULFATE 2 MG/ML CARP IV PRN (22:17)
[2022-02-18] MEDS ORDERED: ONDANSETRON INJ 2 MG/ML 2 ML VIAL IV PRN (22:17)
[2022-02-18] MEDS ORDERED: KETOROLAC TROMETHAMINE 15 MG/ML VIAL IV ONE (22:17)
[2022-02-18] MEDS: KETOROLAC TROMETHAMINE 15 MG/ML VIAL IV PRN (23:56)
[2022-02-19] MEDS: ACETAMINOPHEN 500 MG TAB PO SCH ×2 (05:57→14:27)
[2022-02-19 06:14] LABS: Hematocrit (blood only) 32.4 % (34.1-44.9); Hemoglobin 10.9 g/dl (12.0-16.0); Mean Corpuscular Hemoglobin 31.9 pg (25.0-34.0); Mean Corpuscular Hgb Conc 33.6 g/dL (32.0-36.0); Mean Corpuscular Volume 94.7 fL (80.0-100.0); Mean Platelet Volume 9.8 fL (9.4-12.3); Platelet Count 196 K/uL (130-400); RDW Coefficient of Variation 12.3 % (11.5-14.5); RDW Standard Deviation 42.7 fL (36.4-46.3); Red Blood Count 3.42 M/uL (3.93-5.22); White Blood Count 7.33 K/ul (4.8-10.8)
[2022-02-19] MEDS ORDERED: PANTOprazole 40 MG TAB PO SCH (06:30)
[2022-02-19 06:54] LABS: Albumin Globulin Ratio 1.9 (0.9-2); Albumin Level 3.5 gm/dl (3.4-5.0); BUN Creatinine Ratio 20.2 (10-20); Bilirubin,Total 0.7 mg/dl (0.2-1.0); Chol HDL Ratio 2.9 (0-5); Creatinine Clr Calc Pharmacy 39.8 ml/min; Est GFR (African American) 71.9 ml/min; Est GFR (Non-African American) 62.1 ml/min; Globulin 1.8 gm/dl (2.5-4.0); Potassium 4.1 mmol/L (3.5-5.1); Total Protein 5.3 gm/dl (6.0-8.3)
[2022-02-19 07:19] LABS: Prothrombin Time 11.1 Seconds (9.0-12.0)
[2022-02-19 07:28] LABS: Estimated Average Glucose 117 mg/dl; Hemoglobin A1C 5.7 % (4.5-5.6)
[2022-02-19] MEDS ORDERED: OXYBUTYNIN CHLORIDE XL 5 MG TABCR PO SCH (09:00)
[2022-02-19] MEDS ORDERED: dilTIAZem ER 120 MG CAPCR PO SCH (09:00)
--- NOTE | 2022-02-19 09:46 | CT Scan Report ---
CT humerus LT wo con CLINICAL HISTORY: L arm pain/swelling s/p fall COMPARISON STUDY: Left shoulder radiographs November 27, 2018. Left elbow radiographs February 18, 2022. TECHNIQUE: Axial images of the left humerus were obtained without IV contrast. Sagittal and coronal r econstructions were viewed. Automated exposure control was utilized for the study. A dose lowering t echnique was utilized adhering to the principles of ALARA. FINDINGS: Alignment of the reverse total left shoulder arthroplasty is anatomic. Sensitivity for dete ction of fracture is diminished given streak artifact from the hardware but no fracture within the le ft humerus is identified. No osseous lesion is noted. Note is made of marked soft tissue swelling ove rlying the posterior aspect of the distal left upper arm and left elbow. This is partially imaged and obscured given artifact from the left arm contacting the gantry. A large contusion/hematoma is prese nt, partially imaged on this examination. Alignment of the left elbow appears anatomic. No definite f racture is identified. There is no soft tissue gas. No acute fracture is identified within visualized portions of the left-sided ribs. IMPRESSION: 1. Intact reverse total left shoulder arthroplasty. No periprosthetic fracture identified although se nsitivity diminished given artifact from the hardware. 2. No acute left humeral fracture. 3. Marked soft tissue swelling overlying the posterior aspect of the distal left upper arm and elbow with a large hematoma/contusion, partially imaged on this exam. ACT 112: Negative or not required by law. Electronically signed by: Rajan Ochoa M.D. 02/19/2022 9:45 AM
[2022-02-19] MEDS: KETOROLAC TROMETHAMINE 15 MG/ML VIAL IV PRN (12:38)
--- NOTE | 2022-02-19 14:11 | Orthopedic Consultation ---
Date of Service February 19, 2022 Assessment & Plan (1) Traumatic hematoma of left elbow: Fortunately she does not have any fractures. I remove the compressive wrap which made her feel little bit better. She can use her arm as pain allows. The Eliquis has been held. I do not see any surgical indications at this point. The hematoma will resorb with its own with time. There is no need to follow-up with orthopedics. History of Present Illness Reason for Consultation: Left elbow hematoma. Requesting Physician: . Attending Physician: Ba Baumann MD Salena is a pleasant 86-year-old female who fell yesterday directly onto her left forearm. She had immediate pain. She is on Eliquis. She noticed a lot of swelling and ecchymosis around the area. She went to the emergency room where initial radiographs showed a questionable nondisplaced olecranon fracture. She then had a CT scan which showed no evidence of fracture but did show a large hematoma. She was placed in a compressive wrap and admitted for observation. Orthopedics was consulted to evaluate and treat.. Allergies Allergy/AdvReac Type Severity Reaction Status Date / Time Penicillins Allergy Mild Rash Verified 02/18/22 18:57 naproxen AdvReac Intermediate nausea/vomi Verified 02/18/22 18:57 ting simvastatin AdvReac Intermediate nausea/vomi Verified 02/18/22 18:57 ting Home Medications Medication Instructions Recorded Confirmed Type multivitamin 1 tab PO QAM 12/13/18 02/18/22 History Lactobacillus acidophilus 10 0 cell PO QAM 01/18/20 02/18/22 History billion cell capsule (Probiotic) atorvastatin 20 mg tablet 20 mg PO HS cholesterol #90 tabs 05/18/21 02/18/22 Rx oxybutynin chloride 5 mg 5 mg PO DAILY #90 tabs 06/09/21 02/18/22 Rx tablet,extended release 24 hr diltiazem HCl 120 mg capsule,24 120 mg PO QAM blood pressure #90 08/12/21 02/18/22 Rx hr,extended release caps tramadol 50 mg tablet 50 mg PO Q6H PRN pain #120 tabs 12/01/21 02/18/22 Rx valacyclovir 500 mg tablet 1,000 mg PO DIRECTED PRN Cold 01/07/22 02/18/22 History Sores buspirone 5 mg tablet 5 mg PO BID PRN anxiety #60 tabs 02/02/22 02/18/22 Rx omeprazole 20 mg capsule,delayed 20 mg PO DAILYBB 02/18/22 02/18/22 History release rivaroxaban 10 mg tablet (Xarelto) 10 mg PO HS 02/18/22 02/18/22 History trazodone 50 mg tablet 50 - 100 mg PO HS PRN insomnia 02/18/22 02/18/22 History Past Med/Surg History Medical History Bilateral pulmonary embolism (12/2018) Burning with urination C. difficile colitis Cataracts, bilateral Cervical spinal mass Left side "benign"/ Followed by Neuro Chronic kidney disease, stage 3 Colitis Deep vein thrombosis HX S/P TKA 1990 Difficulty swallowing Diverticulitis of colon Ganglion cyst of wrist GERD (gastroesophageal reflux disease) Glaucoma Herpes labialis Herpes zoster Hypercholesteremia Hypertension Inguinal hernia, bilateral Migraine Nocturia Osteoarthritis Pulmonary embolism 12/2018--reason for xarelto--unknown cause Right lower lobe pulmonary nodule Skin cancer, basal cell Tremor Surgical History H/O colonoscopy History of herniorrhaphy left inguinal hernia 02/2018 at [facility]. 7.0ETT, [place] 2, grade 1 view. No issues. History of inguinal hernia repair History of knee replacement History of repair of right rotator cuff History of tonsillectomy Hx of appendectomy Hx of arthroscopic knee surgery Hx of removal of cyst Left wrist ganglion Hx of total knee arthroplasty RIGHT AND LEFT Hx of total shoulder replacement LEFT Nausea and vomiting after administration of anesthetic agent Family History Mother Hypertension Sister Hypertension Breast cancer Brother No problems noted. 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 Physical Exam On physical examination of the left elbow, there is some induration and swelling to the posterior aspect of her elbow. There is ecchymosis throughout. She does have range of motion from 20 to 140 degrees without much pain. She is neurovascular intact.. Constitutional WD/WN, vitals as above Eyes PERRL, conjunctivae normal, anicteric sclerae ENMT external ear and nose normal, oropharynx normal Neck trachea midline, no thyromegaly Respiratory normal respiratory effort, lungs clear to auscultation Cardiovascular RRR, no murmur, no edema Gastrointestinal (Abdomen) normal bowel sounds, soft, nontender, no hepatosplenomegaly Skin no rashes, warm and dry Psychiatric A+Ox3, euthymic affect Results & Data Results & Data Laboratory Results . Diagnostic Findings X-rays of the left elbow showed some osteoarthritis. There is a questionable nondisplaced fracture of the olecranon CT scan of the left humerus and elbow shows no evidence of olecranon fracture. There is a hematoma posterior to the olecranon.. PG Care Time/CCT Total # of Minutes Spent Total Time Spent with Patient: Total time spent is greater than 50% in coordination of care (as documented) at patient's floor/unit and/or counseling patient: Coding Level of Care Code 32543 Inpt Consult Level 4 Diagnoses Traumatic hematoma of left elbow S50.02XA
[2022-02-19 14:52] LABS: Hematocrit (blood only) 34.5 % (34.1-44.9); Hemoglobin 11.6 g/dl (12.0-16.0)
--- NOTE | 2022-02-19 15:50 | Discharge Summary ---
Date of Service February 19, 2022 Admission HPI Per Admitting Provider 86yo female with a history of HTN, HLD, CKD3, DVT/PE (on xarelto), impaired fasting glucose, NAFLD, OA, GERD, anxiety, and insomnia presents with left elbow pain after a fall earlier today. Patient was stepping backwards this afternoon and tripped over her feet, falling backwards onto her left elbow. Denies head trauma or LOC. Left elbow pain and swelling started about 20 minutes after the fall. Pain reached a 9/10 at its worst and is centered around her left elbow, with some mild tenderness of her left axilla. Denies any prodromal symptoms. Patient denies fever, chills, headache, vision changes, palpitations, SOB, edema, abdominal pain, vomiting, dysuria, hematochezia, melena, back pain, lightheadedness, dizziness, numbness, tingling, weakness, or other symptoms. Denies recent illness. Upon arrival, vitals were notable for elevated BP (180-190s/70s); no tachycardia, no tachypnea, patient afebrile, spO2 adequate on 2L NC. Initial labs were notable only for slightly elevated alk phos (117); no l eukocytosis, no anemia, platelets wnl, no electrolyte abnormalities, creatinine not elevated, AST and ALT not elevated, Tbili not elevated, INR 1.1, covid PCR negative. In the ED, patient received fentanyl IV 25mcg (x1) and 50mcg (x1), morphine 2mg IV (x1), and zofran 4mg IV (x1). XR elbow: no evidence for a joint effusion; lucency within the olecranon, likely artifactual; an acute nondisplaced fracture could appear similar but is considered less likely; marked soft tissue swelling overlying the olecranon; given the clinical history, this favors a hematoma; distal biceps injury cannot be excluded by radiography; a distended bursa could appear similarly CXR: CT head: no acute intracranial abnormality; atrophy and microvascular ischemic changes CT c-spine: no acute cervical spine fracture or subluxation; severe multilevel degenerative changes Surrogate decision-maker in case of an emergency: jayson Kern (home: [phone]) Admission Exam Per Admitting Provider Constitutional: well-appearing, no acute distress HEENT: NCAT, no conjunctival injection, MMM CV: regular rhythm, no murmur appreciated, extremities well-perfused, no LE edema Resp: CTABL, no wheezes/rales/rhonchi appreciated, no increased work of breathing GI: soft, nondistended, nontender, BS normoactive MSK: left arm wrapped and in sling, passive ROM intact but limited by pain, mild left axilla tenderness, RUE strength and ROM intact, LE strength 5/5 bilaterally Skin: no erythema, edema, or ecchymosis appreciated on visible skin of left arm, no erythema, edema, or ecchymosis of left axilla appreciated Neuro: alert, oriented, no focal neurologic deficit appreciated Principal Diagnosis Left elbow pain s/p fall Discharge Exam Constitutional NAD, vitals WNL Respiratory CTA bilaterally. Non labored breathing. No rhonchi, wheezing, or crackles. Cardiovascular RRR. No murmurs noted. Skin Left arm: bruised skin from midway through upper arm to midway through lower arm. Tender, small, around 3 cm hematoma noted on medial, posterior aspect of left elbow. Right arm: mild bruising on upper arm from BP cuff (per patient) Discharge Data Allergies Allergy/AdvReac Type Severity Reaction Status Date / Time Penicillins Allergy Mild Rash Verified 02/18/22 18:57 naproxen AdvReac Intermediate nausea/vomi Verified 02/18/22 18:57 ting simvastatin AdvReac Intermediate nausea/vomi Verified 02/18/22 18:57 ting Consultations 02/18/22 18:37 ED Decision to Admit Stat 02/19/22 19:00 Consult Orthopedic Surgery Routine Fortunately she does not have any fractures. I remove the compressive wrap which made her feel little bit better. She can use her arm as pain allows. The Eliquis has been held. I do not see any surgical indications at this point. The hematoma will resorb with its own with time. There is no need to follow-up with orthopedics. Ordered Studies 02/18/22 15:54 CT cervical spine wo con Stat CT head/brain wo con Stat 02/18/22 20:47 CT arm [CT humerus LT wo con] Urgent Elbow X-Ray 02/18/22 15:51 XR elbow LT min 3V routine CLINICAL HISTORY: Fall, L arm pain COMPARISON: None FINDINGS: Alignment of the left elbow is anatomic. No evidence for a joint effusion. A lucency within the olecranon is noted. This is probably artifactual. Note is made of marked soft tissue swelling overlying the olecranon. IMPRESSION: 1. No evidence for a joint effusion. Lucency within the olecranon. This is likely artifactual. An acute nondisplaced fracture could appear similar but is considered less likely. 2. Marked soft tissue swelling overlying the olecranon. Given the clinical history, this favors a hematoma. Distal biceps injury cannot be excluded by radiography. A distended bursa could appear similar. ACT 112: Negative or not required by law. Electronically signed by: Rajan Ochoa M.D. 02/18/2022 6:09 PM Ribs w/Chest X-Ray 02/18/22 15:51 XR ribs LT min 2V w CXR1V CLINICAL HISTORY: Left rib pain s/p fall COMPARISON STUDY: Chest 03/23/2019. FINDINGS: No pneumothorax. No pleural effusions. There is mild elevation of the right hemidiaphragm. The heart is mildly enlarged. There is a left-sided shoulder prosthesis. There are calcifications within the aortic knob. No acute rib fractures. IMPRESSION: No acute rib fractures. No pneumothorax. ACT 112: Negative or not required by law. Electronically signed by: Alexi Padilla M.D. 02/18/2022 9:[address] 02/18/22 15:54 CT OF THE CERVICAL SPINE WITHOUT CONTRAST CLINICAL HISTORY: Fall, anticoagulated COMPARISON STUDY: Cervical spine CT January 18, 2020. TECHNIQUE: Helical axial images of the cervical spine were obtained without IV contrast. Sagittal and coronal reconstructions were viewed. Automated exposure control was utilized for the study. A dose lowering technique was utilized adhering to the principles of ALARA. FINDINGS: No acute cervical spine fracture is identified. Severe multilevel facet arthrosis is noted. There is moderate multilevel degenerative disc disease. The central canal and neural foramen are suboptimally assessed by CT, however central canal narrowing at the C1 level appears similar to CT of January 18, 2020. No suspicious osseous lesions are noted. No prevertebral edema. The appearance of the cervical spine is unchanged. IMPRESSION: 1. No acute cervical spine fracture or subluxation. 2. No significant change in appearance of the cervical spine, as described above. Severe multilevel degenerative changes. ACT 112: Negative or not required by law. Electronically signed by: Rajan Ochoa M.D. 02/18/2022 5:[address] 02/18/22 15:[address] DOSE: 831.65 mGy.cm HISTORY: Fall, anticoagulated TECHNIQUE: Multiaxial CT images of the head were performed without the use of intravenous contrast. Automated exposure control was utilized for this study. A dose lowering technique was utilized adhering to the principles of ALARA. Comparison: Head CT 01/18/2020. Findings: The paranasal sinuses and mastoid air cells are clear. The calvarium and skull base are intact. There is no mass, hematoma, midline shift, acute infarct. White matter hypodensity is nonspecific but suggestive of microvascular ischemic change. The ventricles and sulci demonstrate mild age-related involutional changes. Impression: No acute intracranial abnormality. Atrophy and microvascular ischemic changes. ACT 112: Negative or not required by law. Electronically signed by: Alexi Padilla M.D. 02/18/2022 4:[address] 02/18/22 20:47 CT humerus LT wo con CLINICAL HISTORY: L arm pain/swelling s/p fall COMPARISON STUDY: Left shoulder radiographs November 27, 2018. Left elbow radiographs February 18, 2022. TECHNIQUE: Axial images of the left humerus were obtained without IV contrast. Sagittal and coronal reconstructions were viewed. Automated exposure control was utilized for the study. A dose lowering technique was utilized adhering to the principles of ALARA. FINDINGS: Alignment of the reverse total left shoulder arthroplasty is anatomic. Sensitivity for detection of fracture is diminished given streak artifact from the hardware but no fracture within the left humerus is identified. No osseous lesion is noted. Note is made of marked soft tissue swelling overlying the posterior aspect of the distal left upper arm and left elbow. This is partially imaged and obscured given artifact from the left arm contacting the gantry. A large contusion/hematoma is present, partially imaged on this examination. Alignment of the left elbow appears anatomic. No definite fracture is identified. There is no soft tissue gas. No acute fracture is identified within visualized portions of the left-sided ribs. IMPRESSION: 1. Intact reverse total left shoulder arthroplasty. No periprosthetic fracture identified although sensitivity diminished given artifact from the hardware. 2. No acute left humeral fracture. 3. Marked soft tissue swelling overlying the posterior aspect of the distal left upper arm and elbow with a large hematoma/contusion, partially imaged on this exam. ACT 112: Negative or not required by law. Electronically signed by: Rajan Ochoa M.D. 02/19/2022 9:45 AM Hospital Course (1) Elbow pain, left: Pt is an 86 yo female with a history of HTN, HLD, CKD3, impaired fasting glucose, NAFLD, OA, GERD, anxiety, and insomnia presenting with left elbow pain after a fall. Left elbow pain s/p mechanical fall- no fracture - Vitals notable for elevated BP but otherwise stable - elbow xray and humeral CT were negative for fracture, positive for hematoma - CT head neg for bleeding - orthopedics recommended no surgical intervention at this time - Hgb dropped from 12.9 to 10.9. Hgb before discharge was 11.6. - Pain control while hospitalized: APAP 1000mg PO q8h scheduled- 2 doses Toradol 10mg IV q4h prn moderate pain- 2 doses Morphine 1mg q2h severe pain- none - Zofran prn nausea - pt instructed to f/u with PCP a few days post d/c to assess hematoma status History of DVT/PE - Holding home xarelto d/t concern for worsening elbow hematoma - No CP, no SOB, no calf tenderness while hospitalized - SpO2 adequate on 2L NC in ER, otherwise 90s on RA throughout visit - pt instructed to hold Xarelto pending PCP follow up a few days post d/c Hypertension - BP elevated on admission to 180-190s/70s - No signs/symptoms of hypertensive emergency - BP on discharge 144/72 - Hydralazine 5mg IV (x1) ordered in ER - continue home diltiazem HLD - continue home statin - lipid panel normal Impaired fasting glucose - HbA1c 5.7% (11/23/2021) - HbA1c 5.7% in hospital GERD -continue home PPI Anxiety - continue home buspar Insomnia - continue home trazodone (2) Fall: (3) Hypertension: (4) Hypercholesteremia: (5) Anticoagulant long-term use: (6) Chronic kidney disease, stage 3: (7) Anxiety: (8) GERD (gastroesophageal reflux disease): (9) Insomnia: (10) Prediabetes: (11) Traumatic hematoma of left elbow: Plan FEN: heart healthy diet, NSS @ 80mL/hr (x1 bag) Code status: full code DVT ppx: SCDs (xarelto held in hospital and upon d/c) Consults: orthopedics Dispo: home Total Time Total Time Spent Total Time Spent (In Minutes): >30min Discharge Plan Discharge Items Patient Disposition: Home - Self-Care Reason For Visit: L ELBOW PAIN S/P FALL Discharge Diagnosis: Left elbow pain s/p fall Condition on Discharge: Good Activity: Resume your previous activity Non-emergency contact: Primary Care Provider Call non-emergency contact if: your symptoms worsen and your pain is not controlled Follow-up/Referrals: Nico Naranjo MD [Primary Care Provider] - Diet: Regular Addtl Attending Provider Instructions: You were admitted to the hospital for left elbow pain after a fall. There was concern for a fracture and/or head injury so you underwent a CT of the head, CT of the cervical (neck) spine, chest xray, elbow xray, and CT of the humerus (bone of your upper arm). All of these tests were negative for fracture. The elbow xray did show a swelling of fluid around your left elbow which is most likely a collection of blood called a hematoma. This is most likely due to your fall and should resolve on its own. A discharge summary will be sent to your primary care physician to ensure continuity of care. Please bring this discharge summary with you to your next office appointment so that your provider can review it at that time. Medications: Your medication list has been reviewed and reconciled upon discharge to ensure accuracy and continuity of care. An updated list of all your medications is included with your hospital discharge paperwork. Please review this list closely and make note of any changes to your medications. - Do NOT restart your Xarelto until talking with your PCP. - Upon discharge, continue all your other medications at home that you were on before you came to the hospital. Follow up appointments: - Make a follow up appointment with your PCP within 3-4 days. It is very imp ortant that you follow up with them shortly after discharge from the hospital to ensure that the hematoma is getting better. They will also tell you when to restart the Xarelto. CONTACT YOUR PRIMARY CARE PROVIDER if you experience any of the following: - Increased elbow/arm pain - Difficulty following your treatment plan - Difficulty taking any of your medications CALL 911 OR GO TO THE EMERGENCY DEPARTMENT if you experience any of the following: - Pain in your left arm that is unmanageable at home - Another episode of falling - Sudden, severe abdominal pain or nausea/vomiting - Severe chest pain or chest pain that radiates to your jaw or arm - Sudden, severe shortness of breath or difficulty breathing Pending Studies at Discharge: No Studies:: Left Elbow Xray IMPRESSION: 1. No evidence for a joint effusion. Lucency within the olecranon. This is likely artifactual. An acute nondisplaced fracture could appear similar but is considered less likely. 2. Marked soft tissue swelling overlying the olecranon. Given the clinical history, this favors a hematoma. Distal biceps injury cannot be excluded by radiography. A distended bursa could appear similar. Ribs with Chest Xray IMPRESSION: No acute rib fractures. No pneumothorax. Cervical Spine CT IMPRESSION: 1. No acute cervical spine fracture or subluxation. 2. No significant change in appearance of the cervical spine, as described above. Severe multilevel degenerative changes. Head CT IMPRESSION: No acute intracranial abnormality. Atrophy and microvascular ischemic changes. Humerus CT IMPRESSION: 1. Intact reverse total left shoulder arthroplasty. No periprosthetic fracture identified although sensitivity diminished given artifact from the hardware. 2. No acute left humeral fracture. 3. Marked soft tissue swelling overlying the posterior aspect of the distal left upper arm and elbow with a large hematoma/contusion, partially imaged on this exam. Stand-Alone Forms: Narrable, Smoking Cessation Medications and DC Order Prescriptions: Continued atorvastatin 20 mg tablet 20 mg PO HS Qty: 90 3RF diltiazem HCl 120 mg capsule,extended release 24 hr 120 mg PO QAM Qty: 90 3RF buspirone 5 mg tablet 5 mg PO BID PRN (Reason: anxiety) Qty: 60 5RF tramadol 50 mg tablet 50 mg PO Q6H PRN (Reason: pain) Qty: 120 0RF oxybutynin chloride 5 mg tablet extended release 24hr 5 mg PO DAILY Qty: 90 3RF valacyclovir 500 mg tablet 1,000 mg PO DIRECTED PRN (Reason: Cold Sores) multivitamin tablet 1 tab PO QAM Probiotic 10 billion cell Capsule 0 cell PO QAM trazodone 50 mg tablet 50 - 100 mg PO HS PRN (Reason: insomnia) Rx Instructions: 1-2 tabs PO HS PRN; omeprazole 20 mg capsule,delayed release(DR/EC) 20 mg PO DAILYBB Rx Instructions: take 1 capsule by mouth daily 30 MINUTES BEFORE BREAKFAST Discontinued Xarelto 10 mg tablet 10 mg PO HS Discharge Orders: Discharge Order (Routine); Ordered 02/19/22 Ordered By: Madeline Duran/Other Patient Handouts: Preventing Falls in the Home Admission Data Admit Date/Time: 02/18/22 20:41 Attending Provider: Ba Baumann Admit Provider: Keshav Bennett Primary Care Provider: Nico Naranjo Other Providers: Gadiel Chun Other Interventions: Discharge Summary Assessment (RN) Last Done: 02/19/22 15:36 Supervising Physician Co-Signing Physician Notes Patient seen and examined, chart reviewed, case discussed with Madeline Hopper, DO and I agree with the assessment and plan as above except as otherwise noted Labs and images reviewed 86-year-old female with a mechanical fall backwards landing on her left elbow. She will x-ray potentially concerning for olecranon fracture, follow-up CT with no evidence of fracture. Patient does have a moderately sized hematoma. Eliquis for DVT prevention with past history of DVT/PE in 2019 was held. No surgical intervention was recommended. Patient did have a drop in hemoglobin from a baseline of 12.8-10.9. Follow-up hemoglobin was uptrending to 11.6. Patient does have a moderately sized hematoma of the left elbow which was stable following observation. She did initially have some numbness and tingling in the fingers while she had a very tight Bora wrap on, this was removed given lack of fall. She had no numbness/tingling on exam, sensation was intact, business risk consultant strength was intact, radial pulse was intact to palpation, and Richie's test did not show any impaired flow. Inpatient versus outpatient observation of hematoma was discussed with patient, she was comfortable with returning home. Return precautions including expanding hematoma, coolness of the arm, or neurovascular changes were discussed and patient is agreeable to return should this occur. No signs of compartment syndrome at time of discharge. Eliquis to be held over the weekend and then resumed Tuesday with PCP follow-up reassessment.
--- NOTE | 2022-02-19 17:47 | Billing Data ---
Date of Service February 19, 2022 Coding Level of Care Code D/C DAY MANAGEMENT >30 MINS
--- NOTE | 2022-02-19 21:32 | Billing Data ---
Date of Service February 19, 2022 Coding Level of Care Code INT OBSERVATION CARE 68M LVL 3
== END 2022-02-19 16:32 | disposition home or self-care (01) ==
LOC: 3N 15:30 → ED 15:30 → SUATTDRO 20:41 → 3N 22:18

== ENCOUNTER 2023-07-31 07:38 | Inpatient (IN) ==
[2023-07-31] MEDS: SODIUM CHLORIDE 0.9% 1,000 ML IV SCH ×2 (08:28→09:16)
[2023-07-31] MEDS: SODIUM CHLORIDE 0.9% 500 ML IV SCH (08:28)
--- NOTE | 2023-07-31 08:34 | XRay Report ---
XR chest 1V portable CLINICAL HISTORY: Vomiting. COMPARISON STUDY: Chest CT July 31, 2019. Chest radiograph September 10, 2022. FINDINGS: Left shoulder arthroplasty is incidentally noted. Lung volumes are mildly diminished. Mild cardiomegaly without evidence for pulmonary edema. No pneumothorax or pleural effusion is present. Li near left basilar density favors atelectasis IMPRESSION: No acute cardiopulmonary findings. ACT 112: Negative or not required by law. Electronically signed by: Rajan Ochoa M.D. 07/31/2023 8:31 AM
[2023-07-31 08:36] LABS: Basophils # (auto) 0.03 K/uL (0.00-0.20); Basophils % (auto) 0.4 %; Eosinophils # (auto) 0.05 K/uL (0.00-0.50); Eosinophils % (auto) 0.7 %; Hematocrit (blood only) 40.8 % (37.0-47.0); Hemoglobin 13.2 g/dl (12.0-16.0); Immature Granulocytes # (auto) 0.03 K/uL (0.01-0.20); Immature Granulocytes % (auto) 0.4 %; Lymphocytes # (auto) 0.65 K/uL (1.20-3.40); Lymphocytes % (auto) 9.4 %; Mean Corpuscular Hemoglobin 31.2 pg (25.0-34.0); Mean Corpuscular Hgb Conc 32.4 g/dL (32.0-36.0); Mean Corpuscular Volume 96.5 fL (80.0-100.0); Mean Platelet Volume 9.8 fL (9.4-12.4); Monocytes # (auto) 0.71 K/uL (0.11-0.59); Monocytes % (auto) 10.3 %; Neutrophils # (auto) 5.41 K/uL (1.40-6.50); Neutrophils % (auto) 78.8 %; Platelet Count 172 K/uL (130-400); RDW Coefficient of Variation 13.5 % (11.5-14.5); RDW Standard Deviation 48.3 fL (36.4-46.3); Red Blood Count 4.23 M/uL (4.20-5.40); White Blood Count 6.88 K/ul (4.8-10.8)
[2023-07-31 08:46] LABS: Albumin Globulin Ratio 1.6 (0.9-2); Albumin Level 4.1 gm/dl (3.4-5.0); BUN Creatinine Ratio 16.2 (10-20); Calcium 9.6 mg/dl (8.6-10.3); Creatinine Clr Calc Pharmacy 25.8 ml/min; Est GFR (African American) 47.8 ml/min; Est GFR (Non-African American) 41.3 ml/min; Globulin 2.6 gm/dl (2.5-4.0); Total Protein 6.7 gm/dl (6.0-8.3)
[2023-07-31 08:51] LABS: Troponin I High Sensitivity 14.4 pg/ml (0-14)
[2023-07-31 09:01] LABS: Thyroid Stimulating Hormone 1.676 uIu/ml (0.300-4.500)
--- NOTE | 2023-07-31 09:19 | Emergency Department Note ---
Impression & Plan Acute UTI (urinary tract infection), Rigors, Nausea & vomiting ED Provider Note NAME: MALORIE MARSH AGE: 87 SEX: Female INFORMANT: Patient and ED PROVIDER(S): Wicho Weeks MD CHIEF COMPLAINT: Nausea and rigors PLAN: Disposition: Admitted Outpatient prescription management: none Referral: None MEDICAL DECISION MAKING: Patient presented because of rigors and flulike symptoms. She had no current headache or meningeal findings. Patient was requiring supplemental oxygen and does not use this at home. She had a chest x-ray performed which was unremarkable. CBC and chemistry panel was unremarkable as well. Cardiac troponin borderline. Patient's urinalysis is very concerning for infection and in light of her history and symptoms I believe that this is a likely source. The rigors are concerning. Blood cultures were done. Patient was hydrated. She did receive IV Rocephin. Discussed further management in the hospital and the patient was in agreement. Consultation was made with the [facility] hospitalist service. Patient was evaluated by the hospitalist team. Dr. Torres recommended discharge as the patient seem to be holding her O2 saturations. I did reevaluate the patient prior to formally discharging. She had a good waveform and her O2 saturations were 87%. Patient felt chilled. I did retake her temperature. She was afebrile but was shaking. I discussed this issue again with the hospitalist and they will admit the patient for further monitoring and treatment. Care/management discussed with: none Level of care consideration(s): After review of the information above and other included data, I feel the patient requires escalation of care to admission Triage Nursing notes: reviewed and agree them. Vital Signs: reviewed and remarkable for mild hypoxia Additional History obtained from: Patient's Chronic Medical/Social Conditions affecting care: CKD, frequent UTI, anticoagulation Prior/ Outside/ External records reviewed: none Differential Diagnosis: Infection, dehydration, metabolic abnormality, hypo/hyperglycemia, electrolyte disturbance, anemia, hypoxia, cardiac sources, intracerebral event, toxicologic, neurologic, as well as other pathologies. Diagnostics, independently interpreted by me: ECG: Twelve-lead ECG reveals normal sinus rhythm at 73 bpm. Anterior Q waves. Low voltage QRS. No ST elevation. Cardiac Monitoring: Cardiac monitoring ordered by me: The patient was placed on continuous cardiac monitoring and observed. It revealed a normal sinus rhythm at 82 beats per minute without ectopy or evidence of dysrhythmia. Medical decision rules: none Imaging studies: Chest x-ray. Findings: A chest x-ray was performed and revealed no pneumothorax, effusion, infiltrate, pulmonary edema, free air under the diaphragm, or wide mediastinum. Impression: No acute disease. HPI: 87 year old Female arrives for evaluation of nausea and rigors. Patient had some upper respiratory-like symptoms for a few days with a cough and intermittent headache. She also had some upset stomach without abdominal pain. Patient was nauseated she did vomit 1 time today after drinking water but has had no additional vomiting. Patient had noted severe shaking and rigors. Rigors started this morning. The patient also notes the following associated symptoms, general fatigue, cough, urinary frequency and cloudy urine. Patient does have a history of UTI.. Household contacts had URI symptoms. The patient has found no relieving factors. Current pain is rated as 0/10. Pt denies LOC, current headache, fevers, diaphoresis, visual changes, neck pain, chest pain, breathing difficulties, abdominal pain, back pain, melena, hematochezia, numbness, lymphadenopathy, rash, or other complaints. PAST MEDICAL HISTORY: See Below, CKD, GERD, hypertension PAST SURGICAL HISTORY: See Below, SOCIAL HISTORY: See Below, HOME MEDICATIONS: See Below ALLERGIES: See Below VITALS: See Below PHYSICAL EXAMINATION: GENERAL: Awake, alert, nontoxic-appearing, in no distress HENT: Normocephalic, atraumatic. Oropharynx unremarkable. EYES: Normal conjunctiva. Sclera non-icteric. NECK: Inspection normal. Non-tender. Supple. No nuchal rigidity. FROM. No masses. RESPIRATORY: Clear to auscultation. No wheezes. No rales. Normal respiratory effort. CARDIAC: Normal rate. Normal rhythm. No murmurs. No rubs. Extremities warm and well perfused. Pulses equal. No JVD. GI: Soft, non-distended. No tenderness to palpation. No rebound or guarding. No masses. RECTAL: Deferred. MUSCULOSKELETAL: Atraumatic. Chest examination reveals no tenderness. The back is symmetrical on inspection without obvious abnormality. There is no CVA tenderness to palpation. No joint edema. LOWER EXTREMITIES: Calves are equal size bilaterally and non-tender. No edema. No discoloration. NEURO: Normal sensorium. No sensory or motor deficits noted. SKIN: No rash or jaundice noted. PROCEDURES: none CRITICAL CARE: none OBSERVATION NOTE: none Past Med/Surg History Medical History Basal cell carcinoma of skin Cervical spinal mass Chronic kidney disease, stage 3 Chronic migraine Deep vein thrombosis Difficulty swallowing Essential tremor GERD (gastroesophageal reflux disease) Glaucoma Hx of Clostridium difficile infection Hypercholesteremia Hypertension Inguinal hernia, bilateral Migraine Nocturia Osteoarthritis Osteopenia (2017) Pulmonary embolism Skin cancer, basal cell Surgical History H/O colonoscopy History of femoral hernia repair (09/17/22) History of herniorrhaphy History of inguinal hernia repair History of knee replacement History of repair of right rotator cuff History of tonsillectomy Hx of appendectomy Hx of arthroscopic knee surgery Hx of bilateral cataract extraction Hx of removal of cyst Hx of total knee arthroplasty Hx of total shoulder replacement Nausea and vomiting after administration of anesthetic agent Family History Mother Hypertension Sister Hypertension Breast cancer Cancer Brother No problems noted. Aunt Breast cancer Stroke Family/Other Stomach cancer Hypertension Other Heart disease Lung disease Denies family history of Ovarian cancer Prostate cancer Diabetes Myocardial infarction Lung cancer Colorectal cancer Social History Smoking Status: Former smoker Second Hand Exposure: No; Do You Dip or Chew Tobacco: No; Hx Alcohol Use: No Hx Substance Use: No Preferred Language: Welsh Communication Ability: Effective Visual Impairment: No Limitations Hearing Ability: Hard of Hearing Limited Radiology Technician Required: No Beliefs That Will Affect Care: None marital status: Current Living Situation: Spouse current occupational status: retired How many Children do You have: 6 Feels Safe at Home: Yes Childhood Exposure to Second-Hand Smoke: Yes Diet: regular during the past year weight has: decreased > 10 lbs Dental Care, Regularly: No Physical Activity Frequency: Daily Seatbelt Use: always Sunscreen Use: Yes Assistive Devices: Denture - Upper, Denture - Lower and Glasses Allergies Allergies Allergy/AdvReac Type Severity Reaction Status Date / Time Penicillins Allergy Mild Rash Verified 07/31/23 10:03 naproxen AdvReac Intermediate nausea/vomi Verified 07/31/23 10:03 ting simvastatin AdvReac Intermediate nausea/vomi Verified 07/31/23 10:03 ting Home Meds Home Medications Medication Instructions Recorded Confirmed multivitamin 1 tab PO QAM 12/13/18 07/31/23 Lactobacillus acidophilus 10 0 cell PO QAM 01/18/20 07/31/23 billion cell capsule (Probiotic) valacyclovir 500 mg tablet 1,000 mg PO DIRECTED PRN Cold 01/07/22 07/31/23 Sores diltiazem HCl 180 mg capsule,24 180 mg PO QAM 07/31/23 07/31/23 hr,extended release oxybutynin chloride 5 mg 5 mg PO QAM 07/31/23 07/31/23 tablet,extended release 24 hr trazodone 50 mg tablet 100 mg PO HS 07/31/23 07/31/23 Previous Rx's Medication Instructions Recorded buspirone 5 mg tablet 5 mg PO BID PRN anxiety #60 tabs 06/01/22 omeprazole 20 mg capsule,delayed 20 mg PO DAILYBB #90 caps 06/01/22 release rivaroxaban 10 mg tablet (Xarelto) 10 mg PO DAILY #14 tabs 12/08/22 atorvastatin 20 mg tablet 20 mg PO HS cholesterol #90 tabs 03/08/23 nystatin 100,000 unit/gram topical 1 applic topical BID #60 grams 03/21/23 powder cefdinir 300 mg capsule 300 mg PO BID 9 days #18 caps 07/31/23 Results & Data (ED) Vital Signs Vital Signs - 24 hr 07/31/23 07:39 07/31/23 08:26 07/31/23 08:30 Temperature 37.1 C Temperature Source Temporal Artery Scan Pulse Rate 82 78 Pulse Rate from SpO2 Sensor Pulse Rhythm Regular Respiratory Rate 16 12 Blood Pressure 137/67 Blood Pressure Mean 90 Pulse Oximetry 91 96 86 L Oxygen Delivery Method Room Air Nasal Cannula Nasal Cannula Oxygen Flow Rate 2 0 Sepsis Recent Fever Within 48 Hours No Sepsis New/Unexplained Change in Mental Status N/A Sepsis Action Taken by Nursing No Action Required Oxygen Flow Rate - Titration 2 Pulse Oximetry Post Tiitration 95 07/31/23 08:39 07/31/23 09:40 07/31/23 10:30 Temperature Temperature Source Pulse Rate 71 64 61 Pulse Rate from SpO2 Sensor 63 Pulse Rhythm Respiratory Rate 17 17 Blood Pressure 116/82 155/67 H Blood Pressure Mean 93 96 Pulse Oximetry 97 96 Oxygen Delivery Method Nasal Cannula Nasal Cannula Oxygen Flow Rate 2 2 Sepsis Recent Fever Within 48 Hours Sepsis New/Unexplained Change in Mental Status Sepsis Action Taken by Nursing Oxygen Flow Rate - Titration Pulse Oximetry Post Tiitration 07/31/23 11:30 07/31/23 12:00 07/31/23 12:37 Temperature Temperature Source Pulse Rate 63 60 60 Pulse Rate from SpO2 Sensor Pulse Rhythm Respiratory Rate 19 19 Blood Pressure 140/77 140/70 Blood Pressure Mean 98 93 Pulse Oximetry 97 97 Oxygen Delivery Method Nasal Cannula Nasal Cannula Oxygen Flow Rate 2 2 Sepsis Recent Fever Within 48 Hours Sepsis New/Unexplained Change in Mental Status Sepsis Action Taken by Nursing Oxygen Flow Rate - Titration Pulse Oximetry Post Tiitration Laboratory Data 07/31/23 15:25 07/31/23 15:25 Lab Results 07/31/23 07/31/23 07/31/23 Range/Units 08:13 08:39 10:14 WBC 6.88 (4.8-10.8) K/ul RBC 4.23 (4.20-5.40) M/uL Hgb 13.2 (12.0-16.0) g/dl Hct 40.8 (37.0-47.0) % MCV 96.5 (80.0-100.0) fL MCH 31.2 (25.0-34.0) pg MCHC 32.4 (32.0-36.0) g/dL RDW Std Deviation 48.3 H (36.4-46.3) fL RDW Coeff of [place] 13.5 (11.5-14.5) % Plt Count 172 (130-400) K/uL MPV 9.8 (9.4-12.4) fL Immature Gran % (Auto) 0.4 % Neut % (Auto) 78.8 % Lymph % (Auto) 9.4 % [place] % (Auto) 10.3 % Eos % (Auto) 0.7 % Baso % (Auto) 0.4 % Neut # (Auto) 5.41 (1.40-6.50) K/uL Lymph # (Auto) 0.65 L (1.20-3.40) K/uL [place] # (Auto) 0.71 H (0.11-0.59) K/uL Eos # (Auto) 0.05 (0.00-0.50) K/uL Baso # (Auto) 0.03 (0.00-0.20) K/uL Immature Gran # (Auto) 0.03 (0.01-0.20) K/uL Sodium 140 (136-145) mmol/L Potassium 4.0 (3.5-5.1) mmol/L Chloride 106 (98-107) mmol/L Carbon Dioxide 28 (21-32) mmol/L Anion Gap 6 (3-11) BUN 19 (6-23) mg/dl Creatinine 1.17 (0.6-1.2) mg/dl Est Cr Clr Drug Dosing 25.8 ml/min Est GFR ( Amer) 47.8 ml/min Est GFR (Non-Af Amer) 41.3 ml/min BUN/Creatinine Ratio 16.2 (10-20) Glucose 117 H (70-99(Fasting)) mg/dl Lactate 1.1 (0.4-2.0) mmol/L Calcium 9.6 (8.6-10.3) mg/dl Magnesium 2.0 (1.7-2.4) mg/dl Total Bilirubin 1.0 (0.2-1.0) mg/dl AST 27 (13-39) U/L ALT 30 (7-52) U/L Alkaline Phosphatase 136 H (34-104) U/L Troponin I High Sens 14.4 H (0-14) pg/ml Total Protein 6.7 (6.0-8.3) gm/dl Albumin 4.1 (3.4-5.0) gm/dl Globulin 2.6 (2.5-4.0) gm/dl Albumin/Globulin Ratio 1.6 (0.9-2) TSH 1.676 (0.300-4.500) uIu/ml Urine Color Yellow Urine Appearance Cloudy A (Clear) Urine pH 6.5 (4.5-7.5) Ur Specific [place] 1.017 (1.000-1.030) Urine Protein 2+ H (Negative) Urine Glucose (UA) Negative (Negative) Urine Ketones Negative (Negative) Urine Blood 2+ H (Negative) Urine Nitrite Positive A (Negative) Urine Bilirubin Negative (Negative) Urine Urobilinogen Negative (Negative) Ur Leukocyte Esterase 3+ H (Negative) Urine WBC (Auto) >30 H (0-5) /hpf Urine RBC (Auto) 10-30 H (0-4) /hpf U Hyaline Cast (Auto) 1-5 (0-5) /lpf U Epithel Cells (Auto) 5-10 H (0-5) /lpf Urine Bacteria (Auto) 4+ H (Negative) Urine Yeast Present A (None Prsent) Adenovirus (PCR) Not Detected (NotDetected) B. pertussis DNA (PCR) Not Detected (NotDetected) B.parapertussis DNA PCR Not Detected (NotDetected) C. pneumoniae DNA (PCR) Not Detected (NotDetected) Coronavirus OC43 (PCR) Not Detected (NotDetected) Coronavirus HKU1 (PCR) Not Detected (NotDetected) Coronavirus 229E (PCR) Not Detected (NotDetected) SARS-CoV-2 (PCR) Not Detected (NotDetected) Coronavirus NL63 (PCR) Not Detected (NotDetected) Human Metapneumovir PCR Not Detected (NotDetected) Influenza Type A (PCR) Not Detected (NotDetected) Influenza Type B (PCR) Not Detected (NotDetected) M. pneumoniae (PCR) Not Detected (NotDetected) Parainfluenza 1 (PCR) Not Detected (NotDetected) Parainfluenza 2 (PCR) Not Detected (NotDetected) Parainfluenza 3 (PCR) Not Detected (NotDetected) Parainfluenza 4 (PCR) Not Detected (NotDetected) RSV (PCR) Not Detected (NotDetected) Entero/Rhino (PCR) Not Detected (NotDetected) Administered Medications Discontinued Medications Cefdinir (Cefdinir 300 Mg Cap Home Pack) 1 each PO ONE ONE Stop: 07/31/23 14:45 Last Admin: 07/31/23 15:12 Dose: Not Given Documented By: PAIGE Sodium Chloride (Nss) 500 mls @ 999 mls/hr IV .Q31M DOMENICO Stop: 07/31/23 08:30 Last Infusion: 07/31/23 09:17 Dose: Infused Documented By: Admin: 07/31/23 08:28 Dose: 999 mls/hr Documented By: ARLET Sodium Chloride (Nss) 1,000 mls @ 999 mls/hr IV .Q1H1M DOMENICO Stop: 07/31/23 09:00 Last Admin: 07/31/23 08:28 Dose: Not Given Documented By: ARLET Sodium Chloride (Nss) 1,000 mls @ 125 mls/hr IV .Q8H DOMENICO Stop: 08/30/23 08:29 Last Infusion: 07/31/23 15:44 Dose: Infused Documented By: Admin: 07/31/23 09:16 Dose: 125 mls/hr Documented By: ARLET Ceftriaxone Sodium (Rocephin) 2,000 mg in 50 mls @ 100 mls/hr IV NOW STA Stop: 07/31/23 13:00 Last Infusion: 07/31/23 13:32 Dose: Infused Documented By: Admin: 07/31/23 12:48 Dose: 100 mls/hr Documented By: ARLET Imaging Data Radiologist's Impression: Chest X-Ray 07/31/23 08:00 XR chest 1V portable CLINICAL HISTORY: Vomiting. COMPARISON STUDY: Chest CT July 31, 2019. Chest radiograph September 10, 2022. FINDINGS: Left shoulder arthroplasty is incidentally noted. Lung volumes are mildly diminished. Mild cardiomegaly without evidence for pulmonary edema. No pneumothorax or pleural effusion is present. Linear left basilar density favors atelectasis IMPRESSION: No acute cardiopulmonary findings. ACT 112: Negative or not required by law. Electronically signed by: Rajan Ochoa M.D. 07/31/2023 8:31 AM Discharge Plan Visit Data Chief Complaint: Vomiting Stated Complaint: VOMITING,SHAKING ED Provider: Wicho Weeks Discharge Problem: Acute UTI (urinary tract infection), Rigors, Nausea & vomiting Patient Disposition: Home - Self-Care Discharge Instructions Interventions: ED Discharge Assessment Last Done: 07/31/23 15:38
[2023-07-31 09:23] LABS: Adenovirus PCR Not Detected (NotDetected); Bordetella parapertussis PCR Not Detected (NotDetected); Bordetella pertussis PCR Not Detected (NotDetected); Chlamydia pneumoniae PCR Not Detected (NotDetected); Coronavirus 229E PCR Not Detected (NotDetected); Coronavirus CoV-2 (COVID19)PCR Not Detected (NotDetected); Coronavirus HKU1 PCR Not Detected (NotDetected); Coronavirus NL63 PCR Not Detected (NotDetected); Coronavirus OC43PCR Not Detected (NotDetected); Human Metapneumovirus PCR Not Detected (NotDetected); Influenza A PCR Not Detected (NotDetected); Influenza B PCR Not Detected (NotDetected); Mycoplasma pneumoniae PCR Not Detected (NotDetected); Parainfluenza Virus 1 PCR Not Detected (NotDetected); Parainfluenza Virus 2 PCR Not Detected (NotDetected); Parainfluenza Virus 3 PCR Not Detected (NotDetected); Parainfluenza Virus 4 PCR Not Detected (NotDetected); Respiratory Syncytial VirusPCR Not Detected (NotDetected); Rhinovirus/Enterovirus PCR Not Detected (NotDetected)
[2023-07-31 10:29] LABS: Appearance Urine Cloudy (Clear); Bacteria Urine Automated 4+ (Negative); Bilirubin Urine Negative (Negative); Blood Urine 2+ (Negative); Color Urine Yellow; Glucose Urine UA Negative (Negative); Ketones Urine Negative (Negative); Leukocyte Esterase Urine 3+ (Negative); Nitrite Urine Positive (Negative); Protein Urine 2+ (Negative); Specific Gravity Urine 1.017 (1.000-1.030); Urobilinogen Urine Negative (Negative); WBC Urine Automated >30 /hpf (0-5); pH Urine 6.5 (4.5-7.5)
[2023-07-31] MEDS: cefTRIAXone SODIUM 2,000 MG/50 ML BAG IV STA (12:48)
--- NOTE | 2023-07-31 13:56 | History & Physical Report ---
Date of Service July 31, 2023 History of Present Illness Chief Complaint: Headache, nausea, vomiting, chills Primary Care Provider: Nico Naranjo MD Salena is an 87 year old female with a PMH significant for HTN, HLD, CKD3, DVT/PE (on xarelto), impaired fasting glucose, NAFLD, OA, GERD, anxiety, and insomnia who presented to the [facility] ED on 07/31/23 with multiple days of nausea, vomiting, headache, and chills. She was noted to be hypoxic at 86% on RA but otherwise stable. Labs were significant for a high sen trop of 14, UA consistent with UTI, and full respiratory biofire negative. The patient was given a dose of Ceftriaxone and 2.5L NSS in the ED prior to admission. Allergies Allergy/AdvReac Type Severity Reaction Status Date / Time Penicillins Allergy Mild Rash Verified 07/31/23 10:03 naproxen AdvReac Intermediate nausea/vomi Verified 07/31/23 10:03 ting simvastatin AdvReac Intermediate nausea/vomi Verified 07/31/23 10:03 ting Home Medications Medication Instructions Recorded Confirmed Type multivitamin 1 tab PO QAM 12/13/18 07/31/23 History Lactobacillus acidophilus 10 0 cell PO QAM 01/18/20 07/31/23 History billion cell capsule (Probiotic) valacyclovir 500 mg tablet 1,000 mg PO DIRECTED PRN Cold 01/07/22 07/31/23 H istory Sores buspirone 5 mg tablet 5 mg PO BID PRN anxiety #60 tabs 06/01/22 07/31/23 Rx omeprazole 20 mg capsule,delayed 20 mg PO DAILYBB #90 caps 06/01/22 07/31/23 Rx release rivaroxaban 10 mg tablet (Xarelto) 10 mg PO DAILY #14 tabs 12/08/22 07/31/23 Rx atorvastatin 20 mg tablet 20 mg PO HS cholesterol #90 tabs 03/08/23 07/31/23 Rx nystatin 100,000 unit/gram topical 1 applic topical BID #60 grams 03/21/23 07/31/23 Rx powder diltiazem HCl 180 mg capsule,24 180 mg PO QAM 07/31/23 07/31/23 History hr,extended release oxybutynin chloride 5 mg 5 mg PO QAM 07/31/23 07/31/23 History tablet,extended release 24 hr trazodone 50 mg tablet 100 mg PO HS 07/31/23 07/31/23 History Past Med/Surg History Medical History Basal cell carcinoma of skin Cervical spinal mass Chronic kidney disease, stage 3 Chronic migraine Deep vein thrombosis Difficulty swallowing Essential tremor GERD (gastroesophageal reflux disease) Glaucoma Hx of Clostridium difficile infection Hypercholesteremia Hypertension Inguinal hernia, bilateral Migraine Nocturia Osteoarthritis Osteopenia (2017) Pulmonary embolism Skin cancer, basal cell Surgical History H/O colonoscopy History of femoral hernia repair (09/17/22) History of herniorrhaphy History of inguinal hernia repair History of knee replacement History of repair of right rotator cuff History of tonsillectomy Hx of appendectomy Hx of arthroscopic knee surgery Hx of bilateral cataract extraction Hx of removal of cyst Hx of total knee arthroplasty Hx of total shoulder replacement Nausea and vomiting after administration of anesthetic agent Family History Mother Hypertension Sister Hypertension Breast cancer Cancer Brother No problems noted. Aunt Breast cancer Stroke Family/Other Stomach cancer Hypertension Other Heart disease Lung disease Denies family history of Ovarian cancer Prostate cancer Diabetes Myocardial infarction Lung cancer Colorectal cancer Social History Smoking Status: Former smoker Second Hand Exposure: No; Do You Dip or Chew Tobacco: No; Hx Alcohol Use: No Hx Substance Use: No Preferred Language: Zimbabwean Communication Ability: Effective Visual Impairment: No Limitations Hearing Ability: Hard of Hearing Energy Projects Lead Required: No Beliefs That Will Affect Care: None marital status: Current Living Situation: Spouse current occupational status: retired How many Children do You have: 6 Feels Safe at Home: Yes Childhood Exposure to Second-Hand Smoke: Yes Diet: regular during the past year weight has: decreased > 10 lbs Dental Care, Regularly: No Physical Activity Frequency: Daily Seatbelt Use: always Sunscreen Use: Yes Assistive Devices: Denture - Upper, Denture - Lower and Glasses Results & Data Results & Data Vital Signs (Past 12 Hours) Vital Signs Temp Pulse Resp BP Pulse Ox O2 Del Method O2 Flow Rate 07/31/23 12:37 60 07/31/23 12:00 60 19 140/70 97 Nasal Cannula 2 07/31/23 11:30 63 19 140/77 97 Nasal Cannula 2 07/31/23 10:30 61 17 155/67 H 96 Nasal Cannula 2 07/31/23 09:40 64 17 116/82 97 Nasal Cannula 2 07/31/23 08:39 71 07/31/23 08:30 86 L Nasal Cannula 0 07/31/23 08:26 78 12 96 Nasal Cannula 2 07/31/23 07:39 37.1 C 82 16 137/67 91 Room Air ECG Additional Comments: Normal sinus rhythm Low voltage QRS Cannot rule out Anterior infarct , age undetermined Abnormal ECG When compared with ECG of 10-SEP-2022 10:15, Minimal criteria for Anterior infarct are now Present Nonspecific T wave abnormality, worse in Anterior leads PG Care Time/CCT Total # of Minutes Spent Total Time Spent with Patient: Total time spent is greater than 50% in coordination of care (as documented) at patient's floor/unit and/or counseling patient: Coding
--- NOTE | 2023-07-31 14:32 | Hospitalist Consultation ---
Date of Consultation July 31, 2023 Assessment & Plan (1) Hypoxia: -We were consulted to evaluated the patient to determine need for inpatient hospitalization due to her reported hypoxia, UTI, nausea, and vomiting -She had one reported episode of hypoxia at 96% on RA -On exam, the patient currently has dark blue, acrylic nails, on all fingers -Her episode of hypoxia was observed using a finger SpO2 sensor -Chest xray is clear today, she is without leukocytosis, and her full respiratory biofire is negative -She denies pleuritic chest pain, hemoptysis, and has been hemodynamically stable; low suspicion for PE at this time -Even if the patient had a good waver form while using a finger sensor, this re ading is not reliable as the sensor uses infrared light which needs to travel through the finger and nail bed. -While monitoring her SpO2 with an earlobe and forehead probe, separately, she remained stable on RA with SpO2 at or above 92% -The patient denies chest pain, SOB, cough, and LEISE -She and her are comfortable with her being discharged home on oral antibiotics for her UTI and PCP follow up -We explained that she should return to the ED if she experiences worsening symptoms or new symptoms, she and her expressed understanding and agreement -Thank you for allowing us to participate in the care of this patient, please reach out with any other questions or concerns -Medicine will sign off at this time (2) UTI (urinary tract infection): -Patient's UA is consistent with acute UTI today -Review of her previous urine cultures shows she has consistently grown pansensitive e. coli -She is without leukocytosis, negative BL CVA tenderness, stable renal function -She is non-toxic appearing and expresses she feels comfortable being discharged home on oral antibiotics -Patient received one dose of IV ceftriaxone in the ED, she will be covered for the next 24 hours -We believe the patient is stable for discharge home on oral antibiotics with PCP follow up -Follow urine culture and sensitivities (3) Nausea and vomiting: -Likely due to her acute UTI -Symptoms have resoled since arrival to the ED -Denies abdominal discomfort, benign abdominal exam, CBC and CMP are unremarkable -Would recommend continued treatment of her UTI at this time Plan The patient was discussed with Dr. Torres at the time of the admission History of Present Illness Reason for Consultation: Hypoxia, UTI, possible need for admission Requesting Physician: Dr. Weeks Attending Physician: Dr. Lacho Torres History of Present Illness Salena is an 87 year old female with a PMH significant for HTN, HLD, CKD3, DVT/PE (on xarelto), impaired fasting glucose, NAFLD, OA, GERD, anxiety, and insomnia who presented to the [facility] ED on 07/31/23 with multiple days of nausea, vomiting, headache, and chills. She was noted to be hypoxic at 86% on RA but otherwise stable. Labs were significant for a high sen trop of 14, UA consistent with UTI, and full respiratory biofire negative. The patient was given a dose of Ceftriaxone and 2.5L NSS in the ED prior to admission. At the time of the exam the patient was sitting in bed in no acute distress with her sitting bedside. She states that she started to develop UTI symptoms with difficulty urinating and cloudy urine on 07/29. Her symptoms progressed to the point that she experienced nausea and vomiting after drinking water this am. Since arrival to the ED and initial hydration she feels much improved. She currently has acrylic nails on all fingers, she and her confirm that all the previous SpO2 readings were done using finger probes. She denies feeling SOB and denies recent fever, chills, chest pain, cough, ELISE, abd pain, diarrhea, melena, LE swelling and recent trauma. I placed a forehead SpO2 sensor on the patient, on RA. She remained stable with readings between 95-100% with a good waveform. I explained that if she was feeling too weak we would be happy to admit her to the hospital. But at this time we are confident she is stable for discharge home on Oral Antibiotics as she has never grow resistant organisms in the past. The patient, and her would rather she be discharged home on oral antibiotics. She explains that they will return to the ED if her symptoms worsen or if she develops new symptoms. Please refer to Dr. Torres's attestation for any changes to the treatment plan Allergies Allergy/AdvReac Type Severity Reaction Status Date / Time Penicillins Allergy Mild Rash Verified 07/31/23 10:03 naproxen AdvReac Intermediate nausea/vomi Verified 07/31/23 10:03 ting simvastatin AdvReac Intermediate nausea/vomi Verified 07/31/23 10:03 ting Home Medications Medication Instructions Recorded Confirmed Type multivitamin 1 tab PO QAM 12/13/18 07/31/23 History Lactobacillus acidophilus 10 0 cell PO QAM 01/18/20 07/31/23 History billion cell capsule (Probiotic) valacyclovir 500 mg tablet 1,000 mg PO DIRECTED PRN Cold 01/07/22 07/31/23 History Sores buspirone 5 mg tablet 5 mg PO BID PRN anxiety #60 tabs 06/01/22 07/31/23 Rx omeprazole 20 mg capsule,delayed 20 mg PO DAILYBB #90 caps 06/01/22 07/31/23 Rx release rivaroxaban 10 mg tablet (Xarelto) 10 mg PO DAILY #14 tabs 12/08/22 07/31/23 Rx atorvastatin 20 mg tablet 20 mg PO HS cholesterol #90 tabs 03/08/23 07/31/23 Rx nystatin 100,000 unit/gram topical 1 applic topical BID #60 grams 03/21/23 07/31/23 Rx powder cefdinir 300 mg capsule 300 mg PO BID 9 days #18 caps 07/31/23 Rx diltiazem HCl 180 mg capsule,24 180 mg PO QAM 07/31/23 07/31/23 History hr,extended release oxybutynin chloride 5 mg 5 mg PO QAM 07/31/23 07/31/23 History tablet,extended release 24 hr trazodone 50 mg tablet 100 mg PO HS 07/31/23 07/31/23 History Patient History Medical History Basal cell carcinoma of skin Cervical spinal mass Chronic kidney disease, stage 3 Chronic migraine Deep vein thrombosis Difficulty swallowing Essential tremor GERD (gastroesophageal reflux disease) Glaucoma Hx of Clostridium difficile infection Hypercholesteremia Hypertension Inguinal hernia, bilateral Migraine Nocturia Osteoarthritis Osteopenia (2017) Pulmonary embolism Skin cancer, basal cell Surgical History H/O colonoscopy History of femoral hernia repair (09/17/22) History of herniorrhaphy History of inguinal hernia repair History of knee replacement History of repair of right rotator cuff History of tonsillectomy Hx of appendectomy Hx of arthroscopic knee surgery Hx of bilateral cataract extraction Hx of removal of cyst Hx of total knee arthroplasty Hx of total shoulder replacement Nausea and vomiting after administration of anesthetic agent Family History Mother Hypertension Sister Hypertension Breast cancer Cancer Brother No problems noted. 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 Beliefs That Will Affect Care: None marital status: Current Living Situation: Spouse current occupational status: retired How many Children do You have: 6 Feels Safe at Home: Yes Childhood Exposure to Second-Hand Smoke: Yes Diet: regular during the past year weight has: decreased > 10 lbs Dental Care, Regularly: No Physical Activity Frequency: Daily Seatbelt Use: always Sunscreen Use: Yes Assistive Devices: Denture - Upper, Denture - Lower and Glasses Physical Exam Physical Exam: Physical Exam: General: In no acute distress, stated age, well-nourished, good hygiene HEENT: Normocephalic, atraumatic, no scleral icterus, pupils around round, symmetrical, and reactive to light, moist mucus membranes, trachea midline, no thyromegaly Chest/Pulm: No respiratory distress, symmetrical chest expansion, clear breath sounds throughout Cardiac: RRR, no murmurs noted Abdomen: Negative for ascites and bruising, normoactive bowel sounds, soft, non-tender to palpation throughout : Negative CVA tenderness BL Musculoskeletal: Symmetrical and without signs of acute trauma, upper and lower extremities with full ROM, no atrophy, spasticity, or flaccidity Extremities: Radial, dorsalis pedis, and posterior tibial pulses are intact a nd symmetrical, no edema noted in the BL LE's Skin: Warm, dry, no rashes , lesions, or scars noted Neuro: Alert and oriented to person, place, month, year, and president, no focal defects, no tremors noted Psych: No acute distress, calm and cooperative during the exam Results & Data Results & Data Vital Signs (Past 12 Hours) Vital Signs Temp Pulse Resp BP Pulse Ox O2 Del Method O2 Flow Rate 07/31/23 12:37 60 07/31/23 12:00 60 19 140/70 97 Nasal Cannula 2 07/31/23 11:30 63 19 140/77 97 Nasal Cannula 2 07/31/23 10:30 61 17 155/67 H 96 Nasal Cannula 2 07/31/23 09:40 64 17 116/82 97 Nasal Cannula 2 07/31/23 08:39 71 07/31/23 08:30 86 L Nasal Cannula 0 07/31/23 08:26 78 12 96 Nasal Cannula 2 07/31/23 07:39 37.1 C 82 16 137/67 91 Room Air Laboratory Results Abnormal lab results 07/31/23 07/31/23 Range/Units 08:13 10:14 RDW Std Deviation 48.3 H (36.4-46.3) fL Lymph # (Auto) 0.65 L (1.20-3.40) K/uL [place] # (Auto) 0.71 H (0.11-0.59) K/uL Glucose 117 H (70-99(Fasting)) mg/dl Alkaline Phosphatase 136 H (34-104) U/L Troponin I High Sens 14.4 H (0-14) pg/ml Urine Appearance Cloudy A (Clear) Urine Protein 2+ H (Negative) Urine Blood 2+ H (Negative) Urine Nitrite Positive A (Negative) Ur Leukocyte Esterase 3+ H (Negative) Urine WBC (Auto) >30 H (0-5) /hpf Urine RBC (Auto) 10-30 H (0-4) /hpf U Epithel Cells (Auto) 5-10 H (0-5) /lpf Urine Bacteria (Auto) 4+ H (Negative) Urine Yeast Present A (None Prsent) Diagnostic Findings Chest X-Ray 07/31/23 08:00 XR chest 1V portable CLINICAL HISTORY: Vomiting. COMPARISON STUDY: Chest CT July 31, 2019. Chest radiograph September 10, 2022. FINDINGS: Left shoulder arthroplasty is incidentally noted. Lung volumes are mildly diminished. Mild cardiomegaly without evidence for pulmonary edema. No pneumothorax or pleural effusion is present. Linear left basilar density favors atelectasis IMPRESSION: No acute cardiopulmonary findings. ACT 112: Negative or not required by law. Electronically signed by: Rajan Ochoa M.D. 07/31/2023 8:31 AM ECG Additional Comments: Normal sinus rhythm Low voltage QRS Cannot rule out Anterior infarct , age undetermined Abnormal ECG When compared with ECG of 10-SEP-2022 10:15, Minimal criteria for Anterior infarct are now Present Nonspecific T wave abnormality, worse in Anterior leads PG Care Time/CCT Total # of Minutes Spent Total Time Spent with Patient: Total time spent is greater than 50% in coordination of care (as documented) at patient's floor/unit and/or counseling patient: Coding [place] [address] IN/OBS CONSULT LVL 5,80M Patient Type Established Medical Decision Making High Complexity Diagnoses Hypoxia R09.02 UTI (urinary tract infection) N39.0 Nausea and vomiting R11.2
--- NOTE | 2023-07-31 14:59 | History & Physical Report ---
Date of Service July 31, 2023 Assessment & Plan (1) Hypoxia: Plan: -Admit to med/surg on continuous pulse oximetry -Currently hemodynamically stable, non-toxic appearing and stable on 2L NC -Her initial episode of hypoxia was observed using a finger SpO2 sensor, despite the patient having dark blue, acrylic nails -However, she had multiple episodes of hypoxia with SpO2 in the high 80's with a forehead sensor and good wave form -Chest xray is clear today, she is without leukocytosis, and her full respiratory biofire is negative -She denies pleuritic chest pain, hemoptysis, has not missed recent doses of Xarelto, and has been hemodynamically stable; low suspicion for PE at this time -She does appear to take shallow breaths and will unconsciously hold her breath at times while her SpO2 is being monitored -The patient denies chest pain, SOB, cough, and ELISE -At this time we will being Pulmonary hygiene with incentive spirometry and flutter therapy -She is not wheezy on exam so we will hold breathing treatments at this time -Continue to wean oxygen to keep SpO2 at or above 92% -BL SCD's for DVT PPX -Clear liquid diet, advance as tolerated -AM CBC, bmp, mag (2) Elevated troponin: Plan: -Initial high sen trop minimally elevated at 14.4 -Patient denies chest discomfort and SOB -She has some t-wave inversions in the anterior leads but is otherwise without ECG changes -Low suspicion for ACS at this time -Will repeat a 2 hour high sen trop on admission to confirm stability (3) UTI (urinary tract infection): Plan: -Patient's UA is consistent with acute UTI today -Review of her previous urine cultures shows she has consistently grown pansensitive e. coli -She is without leukocytosis, negative BL CVA tenderness, stable renal function -She is non-toxic appearing and expresses she feels comfortable being discharged home on oral antibiotics -Patient received one dose of IV ceftriaxone in the ED, we will continue ceftriaxone for now -Follow urine culture and sensitivities (4) Nausea and vomiting: Plan: -Likely due to her acute UTI -Symptoms have resoled since arrival to the ED -Denies abdominal discomfort, benign abdominal exam, CBC and CMP are unremarkable -Will give 20 mg IV famotidine on admission as she is also experiencing belching -Will order prn Zofran (5) Anticoagulant long-term use: Plan: -Previous hx of DVT -Continue Xarelto (6) GERD (gastroesophageal reflux disease): Plan: -Will give 20 mg IV famotidine on admission -Continue PO PPI tomorrow (7) Hypertension: Plan: -Stable -Continue diltiazem Plan The patient was discussed with Dr. Torres at the time of the admission History of Present Illness Chief Complaint: Cloudy urine, nausea, vomiting, Primary Care Provider: Nico Naranjo MD Salena is an 87 year old female with a PMH significant for HTN, HLD, CKD3, DVT/PE (on xarelto), impaired fasting glucose, NAFLD, OA, GERD, anxiety, and insomnia who presented to the [facility] ED on 07/31/23 with multiple days of nausea, vomiting, headache, and chills. She was noted to be hypoxic at 86% on RA but otherwise stable. Labs were significant for a high sen trop of 14, UA consistent with UTI, and full respiratory biofire negative. The patient was given a dose of Ceftriaxone and 2.5L NSS in the ED prior to admission. At the time of the exam the patient was sitting in bed in no acute distress with her sitting bedside. She states that she started to develop UTI symptoms with difficulty urinating and cloudy urine on 07/29. Her symptoms progressed to the point that she experienced nausea and vomiting after drinking water this am. Since arrival to the ED and initial hydration she feels much improved. She currently has acrylic nails on all fingers, she and her confirm that all the previous SpO2 readings were done using finger probes. She denies feeling SOB and denies recent fever, chills, chest pain, cough, ELISE, abd pain, diarrhea, melena, LE swelling and recent trauma. I placed a forehead SpO2 sensor on the patient, on RA. She remained stable with readings between 95-100% with a good waveform. However, while attempting to coordinate discharge the patient's SpO2 fell back intot the high 80's with a good wave form, on RA. Because of this we were asked to admit her to the hospital. When asked about her headache, she states that she has chronic headaches, this is the same as her typical episodes. She often gets them when she has other illnesses. She denies changes in vision, hearing, taste, smell, new paresthesias, or focal weakness. She is a full code and would want her to make medical decisions for her if she cannot make them herself. Please refer to Dr. Torres's attestation for any changes to the treatment plan Allergies Allergy/AdvReac Type Severity Reaction Status Date / Time Penicillins Allergy Mild Rash Verified 07/31/23 10:03 naproxen AdvReac Intermediate nausea/vomi Verified 07/31/23 10:03 ting simvastatin AdvReac Intermediate nausea/vomi Verified 07/31/23 10:03 ting Home Medications Medication Instructions Recorded Confirmed Type multivitamin 1 tab PO QAM 12/13/18 07/31/23 History Lactobacillus acidophilus 10 0 cell PO QAM 01/18/20 07/31/23 History billion cell capsule (Probiotic) valacyclovir 500 mg tablet 1,000 mg PO DIRECTED PRN Cold 01/07/22 07/31/23 History Sores buspirone 5 mg tablet 5 mg PO BID PRN anxiety #60 tabs 06/01/22 07/31/23 Rx omeprazole 20 mg capsule,delayed 20 mg PO DAILYBB #90 caps 06/01/22 07/31/23 Rx release rivaroxaban 10 mg tablet (Xarelto) 10 mg PO DAILY #14 tabs 12/08/22 07/31/23 Rx atorvastatin 20 mg tablet 20 mg PO HS cholesterol #90 tabs 03/08/23 07/31/23 Rx nystatin 100,000 unit/gram topical 1 applic topical BID #60 grams 03/21/23 07/31/23 Rx powder cefdinir 300 mg capsule 300 mg PO BID 9 days #18 caps 07/31/23 Rx diltiazem HCl 180 mg capsule,24 180 mg PO QAM 07/31/23 07/31/23 History hr,extended release oxybutynin chloride 5 mg 5 mg PO QAM 07/31/23 07/31/23 History tablet,extended release 24 hr trazodone 50 mg tablet 100 mg PO HS 07/31/23 07/31/23 History Past Med/Surg History Medical History Basal cell carcinoma of skin Cervical spinal mass Chronic kidney disease, stage 3 Chronic migraine Deep vein thrombosis Difficulty swallowing Essential tremor GERD (gastroesophageal reflux disease) Glaucoma Hx of Clostridium difficile infection Hypercholesteremia Hypertension Inguinal hernia, bilateral Migraine Nocturia Osteoarthritis Osteopenia (2017) Pulmonary embolism Skin cancer, basal cell Surgical History H/O colonoscopy History of femoral hernia repair (09/17/22) History of herniorrhaphy History of inguinal hernia repair History of knee replacement History of repair of right rotator cuff History of tonsillectomy Hx of appendectomy Hx of arthroscopic knee surgery Hx of bilateral cataract extraction Hx of removal of cyst Hx of total knee arthroplasty Hx of total shoulder replacement Nausea and vomiting after administration of anesthetic agent Family History Mother Hypertension Sister Hypertension Breast cancer Cancer Brother No problems noted. 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: No Beliefs That Will Affect Care: None marital status: Current Living Situation: Spouse current occupational status: retired How many Children do You have: 6 Other Information That Helps Us Care for You: No Feels Safe at Home: Yes Safety Concerns: Feels Safe At This Time Childhood Exposure to Second-Hand Smoke: Yes Diet: regular during the past year weight has: decreased > 10 lbs Dental Care, Regularly: No Physical Activity Frequency: Daily Seatbelt Use: always Sunscreen Use: Yes Assistive Devices: None Physical Exam Physical Exam: Physical Exam: General: In no acute distress, stated age, well-nourished, good hygiene HEENT: Normocephalic, atraumatic, no scleral icterus, pupils around round, symmetrical, and reactive to light, moist mucus membranes, trachea midline, no thyromegaly Chest/Pulm: No respiratory distress, symmetrical chest expansion, clear breath sounds throughout Cardiac: RRR, no murmurs noted Abdomen: Negative for ascites and bruising, normoactive bowel sounds, soft, non-tender to palpation throughout : Negative CVA tenderness BL Musculoskeletal: Symmetrical and without signs of acute trauma, upper and lower extremities with full ROM, no atrophy, spasticity, or flaccidity Extremities: Radial, dorsalis pedis, and posterior tibial pulses are intact and symmetrical, no edema noted in the BL LE's Skin: Warm, dry, no rashes , lesions, or scars noted Neuro: Alert and oriented to person, place, month, year, and president, no focal defects, no tremors noted Psych: No acute distress, calm and cooperative during the exam Results & Data Results & Data Vital Signs (Past 12 Hours) Vital Signs Temp Pulse Resp BP Pulse Ox O2 Del Method O2 Flow Rate 07/31/23 14:52 36.7 C 07/31/23 12:37 60 07/31/23 12:00 60 19 140/70 97 Nasal Cannula 2 07/31/23 11:30 63 19 140/77 97 Nasal Cannula 2 07/31/23 10:30 61 17 155/67 H 96 Nasal Cannula 2 07/31/23 09:40 64 17 116/82 97 Nasal Cannula 2 07/31/23 08:39 71 07/31/23 08:30 86 L Nasal Cannula 0 07/31/23 08:26 78 12 96 Nasal Cannula 2 07/31/23 07:39 37.1 C 82 16 137/67 91 Room Air Laboratory Results Abnormal lab results 07/31/23 07/31/23 Range/Units 08:13 10:14 RDW Std Deviation 48.3 H (36.4-46.3) fL Lymph # (Auto) 0.65 L (1.20-3.40) K/uL [place] # (Auto) 0.71 H (0.11-0.59) K/uL Glucose 117 H (70-99(Fasting)) mg/dl Alkaline Phosphatase 136 H (34-104) U/L Troponin I High Sens 14.4 H (0-14) pg/ml Urine Appearance Cloudy A (Clear) Urine Protein 2+ H (Negative) Urine Blood 2+ H (Negative) Urine Nitrite Positive A (Negative) Ur Leukocyte Esterase 3+ H (Negative) Urine WBC (Auto) >30 H (0-5) /hpf Urine RBC (Auto) 10-30 H (0-4) /hpf U Epithel Cells (Auto) 5-10 H (0-5) /lpf Urine Bacteria (Auto) 4+ H (Negative) Urine Yeast Present A (None Prsent) Diagnostic Findings Chest X-Ray 07/31/23 08:00 XR chest 1V portable CLINICAL HISTORY: Vomiting. COMPARISON STUDY: Chest CT July 31, 2019. Chest radiograph September 10, 2022. FINDINGS: Left shoulder arthroplasty is incidentally noted. Lung volumes are mildly diminished. Mild cardiomegaly without evidence for pulmonary edema. No pneumothorax or pleural effusion is present. Linear left basilar density favors atelectasis IMPRESSION: No acute cardiopulmonary findings. ACT 112: Negative or not required by law. Electronically signed by: Rajan Ochoa M.D. 07/31/2023 8:31 AM ECG Additional Comments: Normal sinus rhythm Low voltage QRS Cannot rule out Anterior infarct , age undetermined Abnormal ECG When compared with ECG of 10-SEP-2022 10:15, Minimal criteria for Anterior infarct are now Present Nonspecific T wave abnormality, worse in Anterior leads Code Status & VTE Plan Code Status Full code VTE Prophylaxis Plan VTE Prophylaxis will be ordered: Yes Supervising Physician Co-Signing Physician Notes I personally saw and examined the patient. I verified all mendez points and agree with Reji Russo PA-C with the following exceptions and/or additions: 87 year old female presents to the ER with 2 days of chills, rigors. Nasal congestion for a few days. Cloudy urine and associated nausea for 2 days. O/E A&Ox3, HS RRR, no murmurs, Chest CTAB, Abdo SNT, no CVA tenderness A/P Hypoxia - mild intermittent. CXR, biofire, exam clear. Suspect poor inspiratory effort with current UTI. Incentive spirometer ordered. UTI - previously grown pansensitive E. coli. Ceftriaxone 2g IV daily. Follow up urine/blood cultures. PG Care Time/CCT Total # of Minutes Spent Total Time Spent with Patient: Total time spent is greater than 50% in coordination of care (as documented) at patient's floor/unit and/or counseling patient: Coding [place] [address] INT INP/OBS CARE 3/75MIN Patient Type Established Medical Decision Making High Complexity Diagnoses Hypoxia R09.02 Elevated troponin R79.89 UTI (urinary tract infection) N39.0 Nausea and vomiting R11.2 Anticoagulant long-term use Z79.01 GERD (gastroesophageal reflux disease) K21.9 Hypertension, unspecified type I10 Hypertension type: unspecified (7) Hypertension Hypertension type: unspecified Qualified Code(s): I10 - Essential (primary) hypertension
[2023-07-31] MEDS ORDERED: FAMOTIDINE 200 MG/20 ML VIAL IV SCH (15:00)
[2023-07-31] MEDS: CEFDINIR 300 MG CAP HOME PACK PO ONE (15:12)
[2023-07-31] MEDS ORDERED: busPIRone 5 MG TAB PO PRN (15:38)
[2023-07-31 15:41] LABS: Basophils # (auto) 0.02 K/uL (0.00-0.20); Basophils % (auto) 0.3 %; Eosinophils # (auto) 0.02 K/uL (0.00-0.50); Eosinophils % (auto) 0.3 %; Hematocrit (blood only) 37.3 % (37.0-47.0); Immature Granulocytes # (auto) 0.03 K/uL (0.01-0.20); Immature Granulocytes % (auto) 0.4 %; Lymphocytes # (auto) 0.92 K/uL (1.20-3.40); Lymphocytes % (auto) 13.3 %; Mean Corpuscular Hemoglobin 31.1 pg (25.0-34.0); Mean Corpuscular Hgb Conc 32.2 g/dL (32.0-36.0); Mean Corpuscular Volume 96.6 fL (80.0-100.0); Monocytes # (auto) 0.54 K/uL (0.11-0.59); Monocytes % (auto) 7.8 %; Neutrophils # (auto) 5.37 K/uL (1.40-6.50); Neutrophils % (auto) 77.9 %; Platelet Count 153 K/uL (130-400); RDW Coefficient of Variation 13.4 % (11.5-14.5); RDW Standard Deviation 47.7 fL (36.4-46.3); Red Blood Count 3.86 M/uL (4.20-5.40)
[2023-07-31 15:59] LABS: Albumin Globulin Ratio 1.5 (0.9-2); Albumin Level 3.6 gm/dl (3.4-5.0); BUN Creatinine Ratio 15.2 (10-20); Bilirubin,Total 0.6 mg/dl (0.2-1.0); Creatinine Clr Calc Pharmacy 28.7 ml/min; Est GFR (African American) 54.5 ml/min; Globulin 2.4 gm/dl (2.5-4.0); Potassium 4.2 mmol/L (3.5-5.1)
[2023-07-31 16:08] LABS: Troponin I High Sensitivity 28.9 pg/ml (0-14)
--- NOTE | 2023-07-31 16:52 | Electrocardiogram Report ---
Test Reason : Blood Pressure : / mmHG Vent. Rate : 073 BPM Atrial Rate : 073 BPM P-R Int : 140 ms QRS Dur : 068 ms QT Int : 372 ms P-R-T Axes : 053 -15 029 degrees QTc Int : 409 ms Normal sinus rhythm Low voltage QRS Poor R wave progression, consider anterior HI vs. lead placement vs. LVH Abnormal ECG When compared with ECG of 10-SEP-2022 10:15, Minimal criteria for Anterior infarct are now Present Nonspecific T wave abnormality, worse in Anterior leads Confirmed by Nico Rodriguez ([id number]) on 07/31/2023 4:52:15 PM Referred By: REFERRED SELF Confirmed By:Angel Luis Rodriguez
[2023-07-31] MEDS: ACETAMINOPHEN 325 MG TAB PO PRN (17:10)
[2023-07-31] MEDS: FAMOTIDINE 20 MG in SYRINGE 3 ML IV SCH (17:33)
[2023-07-31] MEDS: ATORVASTATIN 20 MG TAB PO SCH (20:29)
[2023-07-31] MEDS: traZODone HCL 100 MG TAB PO SCH (20:29)
[2023-07-31 21:03] LABS: A calco-baum cmplx NotReported Not Detected (NotDetected); Bact fragilis Not Reported Not Detected (NotDetected); Efaecalis Not Reported Not Detected (NotDetected); Efaecium Not Reported Not Detected (NotDetected); Enterobacterales Not Reported DETECTED (NotDetected); IMP Resistant Gene Not Detected (NotDetected); KPC Resistant Gene Not Detected (NotDetected); Lmonocyt Not Reported Not Detected (NotDetected); NDM Resistant Gene Not Detected (NotDetected); OXA 48 Like Resistant Gene Not Detected (NotDetected); Staph lugdunensis Not Reported Not Detected (NotDetected); Staph spp. Not Reported Not Detected (NotDetected); Staphaureus Not Reported Not Detected (NotDetected); Staphepi Not Reported Not Detected (NotDetected); Strep agal(GrpB) Not Reported Not Detected (NotDetected); Strep pneum Not Reported Not Detected (NotDetected); Strep pyog (GrpA) Not Reported Not Detected (NotDetected); Strep spp Not Reported Not Detected (NotDetected); VIM Resistant Gene Not Detected (NotDetected); mcr-1 Colistin Resistant Gene Not Detected (NotDetected)
[2023-07-31 21:04] LABS: Blood Culture Id Panel See PCR Comment (NotDetected); C auris Not Reported Not Detected (NotDetected); Calbicans Not Reported Not Detected (NotDetected); Candida glabrata Not Reported Not Detected (NotDetected); Candida krusei Not Reported Not Detected (NotDetected); Cneoformans/gatti Not Reported Not Detected (NotDetected); Cparapsilosis Not Reported Not Detected (NotDetected); E cloacae compx Not Reported Not Detected (NotDetected); Escherichia coli Not Reported DETECTED (NotDetected); H influenzae Not Reported Not Detected (NotDetected); K aerogenes Not Reported Not Detected (NotDetected); Koxytoca Not Reported Not Detected (NotDetected); Kpneumoniae grp Not Reported Not Detected (NotDetected); N meningitidis Not Reported Not Detected (NotDetected); P aeruginosa Not Reported Not Detected (NotDetected); Proteus spp Not Reported Not Detected (NotDetected); Salmonella spp Not Reported Not Detected (NotDetected); Smarcescens Not Reported Not Detected (NotDetected); Stenmaltophilia Not Reported Not Detected (NotDetected)
[2023-07-31 21:10] LABS: Enterobacterales DETECTED (NotDetected)
[2023-07-31 21:11] LABS: CTX-M Resistant Gene DETECTED (NotDetected)
[2023-07-31] MEDS: MEROPENEM 500 MG in SYRINGE 0 ML IV SCH (22:30)
[2023-08-01 02:58] LABS: Basophils # (auto) 0.04 K/uL (0.00-0.20); Basophils % (auto) 0.5 %; Eosinophils # (auto) 0.03 K/uL (0.00-0.50); Eosinophils % (auto) 0.4 %; Hematocrit (blood only) 34.5 % (37.0-47.0); Hemoglobin 11.3 g/dl (12.0-16.0); Immature Granulocytes # (auto) 0.06 K/uL (0.01-0.20); Immature Granulocytes % (auto) 0.7 %; Lymphocytes # (auto) 1.61 K/uL (1.20-3.40); Lymphocytes % (auto) 18.9 %; Mean Corpuscular Hemoglobin 31.5 pg (25.0-34.0); Mean Corpuscular Hgb Conc 32.8 g/dL (32.0-36.0); Mean Corpuscular Volume 96.1 fL (80.0-100.0); Mean Platelet Volume 9.7 fL (9.4-12.4); Monocytes # (auto) 1.18 K/uL (0.11-0.59); Monocytes % (auto) 13.9 %; Neutrophils # (auto) 5.59 K/uL (1.40-6.50); Neutrophils % (auto) 65.6 %; Platelet Count 144 K/uL (130-400); RDW Coefficient of Variation 13.2 % (11.5-14.5); RDW Standard Deviation 47.3 fL (36.4-46.3); Red Blood Count 3.59 M/uL (4.20-5.40); White Blood Count 8.51 K/ul (4.8-10.8)
[2023-08-01 03:15] LABS: BUN Creatinine Ratio 15.9 (10-20); Creatinine Clr Calc Pharmacy 36.8 ml/min; Est GFR (African American) 73.5 ml/min; Est GFR (Non-African American) 63.4 ml/min; Potassium 3.8 mmol/L (3.5-5.1)
[2023-08-01 03:22] LABS: Troponin I High Sensitivity 45.5 pg/ml (0-14)
[2023-08-01] MEDS: PANTOprazole 40 MG TAB PO SCH (06:05)
[2023-08-01] MEDS: RIVAROXABAN 10 MG TABLET PO SCH (07:38)
[2023-08-01] MEDS: dilTIAZem HCL 180 MG CAPCR PO SCH (07:38)
[2023-08-01] MEDS: OXYBUTYNIN CHLORIDE XL 5 MG TABCR PO SCH (07:39)
--- NOTE | 2023-08-01 10:14 | Hospitalist Progress Note ---
Date of Service August 01, 2023 Assessment & Plan (1) Bacteremia due to Gram-negative bacteria: Plan: -Source: Urine - Blood cultures: 07/24 w/ GRB - biofire E.coli/ ESBL - Urine culture pending - abx changed to Ertapenem q24h - hypoxia - wean O2 as able - PT/OT (2) Hypoxia: Plan: -Currently on 2L NC, wean as able, goal 92% - using finger SpO2 sensor, however pt with dark blue arcylic nails. May need forehead sensor to wean off accurately -Currently asymptomatic, no wheeze on exam -CXR: no acute findings, mildly diminished lung volumes -Denies missed Xarelto doses, low suspicion for PE at this time -Continue IS and flutter valve (3) Elevated troponin: Plan: -Initial high sen trop minimally elevated at 14.4, peaked at 45, now downtrending -Patient denies chest discomfort and SOB -She has some t-wave inversions in the anterior leads but is otherwise without ECG changes -Low suspicion for ACS (4) UTI (urinary tract infection): Plan: -Patient's UA is consistent with acute UTI today - see bactermia above (5) Nausea and vomiting: Plan: -Likely due to her acute UTI -Symptoms have resoled since arrival to the ED -Will give 20 mg IV famotidine on admission as she is also experiencing belching -Will order prn Zofran (6) Anticoagulant long-term use: Plan: -Previous hx of DVT -Continue Xarelto (7) GERD (gastroesophageal reflux disease): Plan: -Continue PO PPI (8) Hypertension: Plan: -Stable -Continue diltiazem Plan Dispo: continued inpatient stay DVT proh: continue home Xarelto updated at bedside. Admission and Anticipated Discharge Date Admission Date: July 31, 2023 Subjective patient resting in bed, at beside. Nausea has improved, no further episodes since arrival to ED. She does endorse some weakness. Decreased appetite x multiple months. Denies fevers or chills overnight. Baseline room air at home. Review of Systems Review of Systems: All systems reviewed & are unremarkable except as noted in Subjective Physical Exam Physical Exam: General: NAD, VS as above Resp: normal respiratory effort, lungs clear to auscultation, 2L nasal cannula CV: RRR, no murmur, Abd: normal bowel sounds, non tender, no hepatosplenomegaly back: no CVA tenderness Extremities: Moves all extremities, no edema Neuro: A&O x3, Results & Data Results & Data Vital Signs (Past 12 Hours) Vital Signs Temp Pulse Resp BP Pulse Ox O2 Del Method O2 Flow Rate 08/01/23 07:20 Nasal Cannula 2 08/01/23 07:09 37.1 C 64 16 149/73 H 96 Nasal Cannula 2 07/31/23 23:13 Nasal Cannula 2 Laboratory Results CBC and chemistry reviewed PG Care Time/CCT Total # of Minutes Spent Total Time Spent with Patient: Total time spent is greater than 50% in coordination of care (as documented) at patient's floor/unit and/or counseling patient: Coding Level of Care Code 91962 SUB INP/OBS CARE 3/50MIN Diagnoses Bacteremia due to Gram-negative bacteria R78.81 Hypoxia R09.02 Elevated troponin R79.89 UTI (urinary tract infection) N39.0 Nausea and vomiting R11.2 Anticoagulant long-term use Z79.01 GERD (gastroesophageal reflux disease) K21.9 Hypertension, unspecified type I10 Hypertension type: unspecified (8) Hypertension Hypertension type: unspecified Qualified Code(s): I10 - Essential (primary) hypertension
[2023-08-01] MEDS ORDERED: cefTRIAXone SODIUM 2,000 MG in DEXTROSE 5 % MINI-B 50 ML IV SCH (13:00)
[2023-08-01] MEDS: ERTAPENEM SODIUM 1,000 MG in SYRINGE 0 ML IV SCH (13:23)
[2023-08-01] MEDS: ONDANSETRON INJ 2 MG/ML 2 ML VIAL IV PRN (14:12)
[2023-08-02 07:34] LABS: Basophils # (auto) 0.02 K/uL (0.00-0.20); Basophils % (auto) 0.3 %; Eosinophils # (auto) 0.06 K/uL (0.00-0.50); Eosinophils % (auto) 0.8 %; Hematocrit (blood only) 33.6 % (37.0-47.0); Hemoglobin 11.2 g/dl (12.0-16.0); Immature Granulocytes # (auto) 0.04 K/uL (0.01-0.20); Immature Granulocytes % (auto) 0.5 %; Lymphocytes # (auto) 1.77 K/uL (1.20-3.40); Lymphocytes % (auto) 24.1 %; Mean Corpuscular Hemoglobin 31.3 pg (25.0-34.0); Mean Corpuscular Hgb Conc 33.3 g/dL (32.0-36.0); Mean Corpuscular Volume 93.9 fL (80.0-100.0); Mean Platelet Volume 10.2 fL (9.4-12.4); Monocytes # (auto) 1.22 K/uL (0.11-0.59); Monocytes % (auto) 16.6 %; Neutrophils # (auto) 4.24 K/uL (1.40-6.50); Neutrophils % (auto) 57.7 %; Platelet Count 157 K/uL (130-400); RDW Coefficient of Variation 13.2 % (11.5-14.5); RDW Standard Deviation 45.4 fL (36.4-46.3); Red Blood Count 3.58 M/uL (4.20-5.40); White Blood Count 7.35 K/ul (4.8-10.8)
[2023-08-02 08:00] LABS: BUN Creatinine Ratio 15.2 (10-20); Calcium 9.2 mg/dl (8.6-10.3); Creatinine Clr Calc Pharmacy 32.8 ml/min; Est GFR (Non-African American) 55.2 ml/min
[2023-08-02] MEDS: FAMOTIDINE 20 MG TAB PO SCH (08:01)
--- NOTE | 2023-08-02 17:15 | Hospitalist Progress Note ---
Date of Service August 02, 2023 Assessment & Plan (1) Bacteremia due to Gram-negative bacteria: Plan: -Source: Urine - Blood cultures: 07/24 w/ GRB - biofire E.coli/ ESBL - Urine culture: Ecoli ESLB - abx changed to Ertapenem q24h - cultures sensitive to Bactrim, will transition to this at discharge for total of 10 day course ( 07/31 - 08/09) (2) Hypoxia: Plan: -Currently on 1L NC, wean as able, goal 92% - using finger SpO2 sensor, however pt with dark blue arcylic nails. May need forehead sensor to wean off accurately -Currently asymptomatic, no wheeze on exam -CXR: no acute findings, mildly diminished lung volumes -Denies missed Xarelto doses, low suspicion for PE at this time -Continue IS and flutter valve - Respiratory 2 step (3) Elevated troponin: Plan: -Initial high sen trop minimally elevated at 14.4, peaked at 45, now downtrending -Patient denies chest discomfort and SOB -She has some t-wave inversions in the anterior leads but is otherwise without ECG changes -Low suspicion for ACS (4) UTI (urinary tract infection): Plan: -Patient's UA is consistent with acute UTI today - see bactermia above (5) Nausea and vomiting: Plan: -Likely due to her acute UTI -Symptoms have resoled since arrival to the ED -Will give 20 mg IV famotidine on admission as she is also experiencing belching -Will order prn Zofran (6) Anticoagulant long-term use: Plan: -Previous hx of DVT -Continue Xarelto (7) GERD (gastroesophageal reflux disease): Plan: -Continue PO PPI (8) Hypertension: Plan: -Stable -Continue diltiazem Plan Dispo: continued inpatient stay, hopeful for discharge tomorrow pending O2 needs overnight DVT proh: continue home Xarelto Admission and Anticipated Discharge Date Admission Date: August 01, 2023 Subjective Sitting up in bed. Reports walking around independently in room, does not feel SOB or weak. Tolerated breakfast without nausea Review of Systems Review of Systems: All systems reviewed & are unremarkable except as noted in Subjective Physical Exam Physical Exam: General: NAD, VS as above Resp: normal respiratory effort, lungs clear to auscultation, 1L nasal cannula CV: RRR, no murmur, Abd: normal bowel sounds, non tender, no hepatosplenomegaly back: no CVA tenderness Extremities: Moves all extremities, no edema Neuro: A&O x3, Results & Data Results & Data Vital Signs (Past 12 Hours) Vital Signs Temp Pulse Pulse Pulse Resp Resp Resp 08/02/23 14:56 36.7 C 59 L 18 08/02/23 13:03 74 77 18 18 08/02/23 07:20 08/02/23 07:12 36.9 C 60 16 BP Pulse Ox Pulse Ox Pulse Ox O2 Del Method O2 Flow Rate 08/02/23 14:56 146/71 H 91 Room Air 08/02/23 13:03 89 L 92 08/02/23 07:20 Nasal Cannula 1 08/02/23 07:12 125/72 95 Nasal Cannula 1 Laboratory Results CBC and chemistry reviewed PG Care Time/CCT Total # of Minutes Spent Total Time Spent with Patient: Total time spent is greater than 50% in coordination of care (as documented) at patient's floor/unit and/or counseling patient: Coding Level of Care Code 78312 SUB INP/OBS CARE 2/35MIN Diagnoses Bacteremia due to Gram-negative bacteria R78.81 Hypoxia R09.02 Elevated troponin R79.89 UTI (urinary tract infection) N39.0 Nausea and vomiting R11.2 Anticoagulant long-term use Z79.01 GERD (gastroesophageal reflux disease) K21.9 Hypertension, unspecified type I10 Hypertension type: unspecified (8) Hypertension Hypertension type: unspecified Qualified Code(s): I10 - Essential (primary) hypertension
[2023-08-03 07:54] VITALS: RESP 18; TEMP 97.9; O2SAT 94
--- NOTE | 2023-08-03 10:44 | Discharge Summary ---
Discharge Summary Date of Service August 03, 2023 Notes For Next Care Provider Bactrim for 6 days starting 08/04 No changes to home meds Medication Changes From Visit Bactrim DS BID x 6 days Admission HPI Per Admitting Provider Salena is an 87 year old female with a PMH significant for HTN, HLD, CKD3, DVT/PE (on xarelto), impaired fasting glucose, NAFLD, OA, GERD, anxiety, and insomnia who presented to the [facility] ED on 07/31/23 with multiple days of nausea, vomiting, headache, and chills. She was noted to be hypoxic at 86% on RA but otherwise stable. Labs were significant for a high sen trop of 14, UA consistent with UTI, and full respiratory biofire negative. The patient was given a dose of Ceftriaxone and 2.5L NSS in the ED prior to admission. At the time of the exam the patient was sitting in bed in no acute distress with her sitting bedside. She states that she started to develop UTI symptoms with difficulty urinating and cloudy urine on 07/29. Her symptoms progressed to the point that she experienced nausea and vomiting after drinking water this am. Since arrival to the ED and initial hydration she feels much improved. She currently has acrylic nails on all fingers, she and her confirm that all the previous SpO2 readings were done using finger probes. She denies feeling SOB and denies recent fever, chills, chest pain, cough, ELISE, abd pain, diarrhea, melena, LE swelling and recent trauma. I placed a forehead SpO2 sensor on the patient, on RA. She remained stable with readings between 95-100% with a good waveform. However, while attempting to coordinate discharge the patient's SpO2 fell back intot the high 80's with a good wave form, on RA. Because of this we were asked to admit her to the hospital. When asked about her headache, she states that she has chronic headaches, this is the same as her typical episodes. She often gets them when she has other illnesses. She denies changes in vision, hearing, taste, smell, new paresthesias, or focal weakness. She is a full code and would want her to make medical decisions for her if she cannot make them herself. Please refer to Dr. Torres's attestation for any changes to the treatment plan Principal Dx & Hospital Course #1 = Principal Diagnosis (1) Bacteremia due to Gram-negative bacteria: -Source: Urine - Blood cultures: 07/24 w/ GRB - biofire E.coli/ ESBL - Urine culture: Calebli ESLB - abx changed to Ertapenem q24h - cultures sensitive to Bactrim, will transition to this at discharge for total of 10 day course ( 07/31 - 08/09) (2) Hypoxia: -Currently asymptomatic, no wheeze on exam -CXR: no acute findings, mildly diminished lung volumes -Denies missed Xarelto doses, low suspicion for PE at this time -Respiratory 2 step - no O2 needs Stable on Room air at discharge (3) Elevated troponin: -Initial high sen trop minimally elevated at 14.4, peaked at 45, now downtrending -Patient denies chest discomfort and SOB -She has some t-wave inversions in the anterior leads but is otherwise without ECG changes -Low suspicion for ACS (4) UTI (urinary tract infection): -Patient's UA is consistent with acute UTI - see bactermia above - complete course with bactrim (5) Nausea and vomiting: Resolved (6) Anticoagulant long-term use: -Previous hx of DVT -Continue Xarelto (7) GERD (gastroesophageal reflux disease): -Continue PO PPI (8) Hypertension: -Stable -Continue diltiazem Plan Dispo: dischare to home Discharge Exam General: NAD, VS as above Resp: normal respiratory effort, lungs clear to auscultation, on room air CV: RRR, no murmur, Abd: normal bowel sounds, non tender, no hepatosplenomegaly back: no CVA tenderness Extremities: Moves all extremities, no edema Neuro: A&O x3, Updated Medication List Medication Instructions Recorded Confirmed Type multivitamin 1 tab PO QAM 12/13/18 07/31/23 History Lactobacillus acidophilus 10 0 cell PO QAM 01/18/20 07/31/23 History billion cell capsule (Probiotic) valacyclovir 500 mg tablet 1,000 mg PO DIRECTED PRN Cold 01/07/22 07/31/23 History Sores buspirone 5 mg tablet 5 mg PO BID PRN anxiety #60 tabs 06/01/22 07/31/23 Rx omeprazole 20 mg capsule,delayed 20 mg PO DAILYBB #90 caps 06/01/22 07/31/23 Rx release rivaroxaban 10 mg tablet (Xarelto) 10 mg PO DAILY #14 tabs 12/08/22 07/31/23 Rx atorvastatin 20 mg tablet 20 mg PO HS cholesterol #90 tabs 03/08/23 07/31/23 Rx nystatin 100,000 unit/gram topical 1 applic topical BID #60 grams 03/21/23 Rx powder cefdinir 300 mg capsule 300 mg PO BID 9 days #18 caps 07/31/23 Rx diltiazem HCl 180 mg capsule,24 180 mg PO QAM 07/31/23 07/31/23 History hr,extended release oxybutynin chloride 5 mg 5 mg PO QAM 07/31/23 07/31/23 History tablet,extended release 24 hr trazodone 50 mg tablet 100 mg PO HS 07/31/23 07/31/23 History sulfamethoxazole 800 1 tab PO BID 6 days #12 tabs 08/03/23 Rx mg-trimethoprim 160 mg tablet (Bactrim DS) Hospital Stay Data Consultations 07/31/23 15:08 ED Decision to Admit Stat Diagnostic Imagining Performed Chest X-Ray 07/31/23 08:00 XR chest 1V portable CLINICAL HISTORY: Vomiting. COMPARISON STUDY: Chest CT July 31, 2019. Chest radiograph September 10, 2022. FINDINGS: Left shoulder arthroplasty is incidentally noted. Lung volumes are mildly diminished. Mild cardiomegaly without evidence for pulmonary edema. No pneumothorax or pleural effusion is present. Linear left basilar density favors atelectasis IMPRESSION: No acute cardiopulmonary findings. ACT 112: Negative or not required by law. Electronically signed by: Rajan Ochoa M.D. 07/31/2023 8:31 AM Pending Results Patient Have Any Pending Studies at Discharge: Yes (one set of blood cultures ) Discharge Instructions Given to Patient (Per Discharging Provider) Mrs. Kern, You were hospitalized after having a UTI that spread to your blood stream. You were treated with IV antibiotics while in the hospital and will finish out your 10 day course with Bactrim. Take one tablet by mouth twice a day - starting 08/04. It is important that you take all of the antibiotics even if you are feeling better. You were originally requiring oxygen but did not need that at discharge, the oxygen needs were likely from your infection. Continue your Xarelto, we did not change any of your home medications. If you have any worsening urinary symptoms, frequency, urgency or burning, or fevers or chills please contact your PCP. It was our pleasure taking care of you. Total Time Total Time Spent Total Time Spent (In Minutes): Time spend day of discharge 35 minutes including direct patient care, medication reconciliation, documentation, review of labs and images, and coordination of care. Coding Level of Care Code 74307 INP/OBS DISCH >30 MIN Diagnoses Bacteremia due to Gram-negative bacteria R78.81 Hypoxia R09.02 Elevated troponin R79.89 UTI (urinary tract infection) N39.0 Nausea and vomiting R11.2 Anticoagulant long-term use Z79.01 GERD (gastroesophageal reflux disease) K21.9 Hypertension, unspecified type I10 Hypertension type: unspecified
[2023-08-03 14:45] VITALS: BP 146/71; PULSE 59
== END 2023-08-03 15:15 | disposition home or self-care (01) | DRG 872 ==
LOC: EDINP 07:38 → ED 07:38 → SUATTDRO 14:52 → 3N 15:38
DX: R73.01 Impaired fasting glucose; Z86.718 Personal history of other venous thrombosis and embolism; E78.5 Hyperlipidemia, unspecified; K21.9 Gastro-esophageal reflux disease without esophagitis; R79.89 Other specified abnormal findings of blood chemistry; R78.81 Bacteremia; Z79.01 Long term (current) use of anticoagulants; N18.30 Chronic kidney disease, stage 3 unspecified; I12.9 Hypertensive chronic kidney disease with stage 1 through stage 4 chronic kidney disease, or unspecified chronic kidney disease; R09.02 Hypoxemia; R11.2 Nausea with vomiting, unspecified; Z88.6 Allergy status to analgesic agent; Z87.891 Personal history of nicotine dependence; Z88.0 Allergy status to penicillin; Z86.711 Personal history of pulmonary embolism; Z79.899 Other long term (current) drug therapy; N39.0 Urinary tract infection, site not specified; Z88.8 Allergy status to other drugs, medicaments and biological substances